=== PATIENT | female | born 1955 | race Caucasian/White ===

== ENCOUNTER → 2017-04-03 16:19 | Outpatient (CLI) | payer OTHER, SELFPAY ==
--- NOTE | 2017-04-03 16:38 | HPBI_ITS ---
MAMMOGRAPHY - BILATERAL SCREENING REASON FOR EXAM: Female, 62 years old. Routine annual screening examination. PERTINENT HISTORY: Non-contributory. TECHNIQUE: Digital bilateral breast vaughn (3D mammographic acquisition) in the CC and MLO projections. 2-D mediolateral oblique (MLO) and craniocaudad (CC) views of both breasts were obtained. CAD: Full Field Digital Mammography with Computer Added Detection was performed. COMPARISON: Comparison is made with prior examination dated December 07, 2010. FINDINGS: Breast Composition: The breasts are heterogeneously dense, which may obscure small masses. There are no dominant masses or suspicious calcifications. No other significant abnormalities are identified. There has been no significant change since the prior study. HPBI/SCREENING MAMM (CAD), BILAT IMPRESSION: Stable bilateral screening mammogram. Yearly follow-up mammogram recommended. (A) ASSESSMENT CATEGORY: BIRADS Category 1: Negative. A letter regarding these results will be sent to the patient by the facility within 30 days. Approximately 10% of breast cancers are not detected by mammography. A normal mammogram should not delay biopsy of a clinically suspicious abnormality. [id number] Electronically Signed: Carson Manley MD at 8:13 EST Tel [phone], Service support ,
== END ==
PROVIDERS: Family Provider Internal Medicine; PCP Internal Medicine; Visit Provider Internal Medicine
DX: Z12.31 Encounter for screening mammogram for malignant neoplasm of breast (principal)
CPT/HCPCS: 77063; 77067

== ENCOUNTER → 2017-04-17 15:01 | Outpatient (CLI) | payer OTHER, SELFPAY ==
[2017-04-23 12:00] LABS: HPV APTIMA, High Risk Negative (Negative)
== END ==
PROVIDERS: Family Provider Internal Medicine; PCP Internal Medicine; Visit Provider Obstetrics & Gynecology
DX: Z12.4 Encounter for screening for malignant neoplasm of cervix (principal)
CPT/HCPCS: 88175; G0145

== ENCOUNTER → 2018-06-26 09:19 | Outpatient (CLI) | payer OTHER, SELFPAY ==
[2018-06-26 09:15] VITALS: BMI 26.4
--- NOTE | 2018-06-26 09:21 | RAD_ITS ---
STUDY: X-RAY - RIGHT KNEE REASON FOR EXAM: Right knee pain. TECHNIQUE: 4 view(s) of the knee. COMPARISON: None. FINDINGS: Normal visualized distal femur. Normal visualized proximal tibia and fibula. Normal proximal tibiofibular articulation. There is moderately severe joint space narrowing of the medial femorotibial compartment. Normal lateral femorotibial compartment. There are small marginal osteophytes and mild joint space narrowing of the patellofemoral articulation. The soft tissue structures are unremarkable. RAD/Knee 4 or More Views IMPRESSION: Arthrosis of the medial femorotibial and patellofemoral compartments. Electronically Signed: Wyatt Stafford MD at 9:44 EDT Tel , Service support ,
== END ==
PROVIDERS: Family Provider Internal Medicine; PCP Internal Medicine; Referring Provider Orthopaedic Surgery; Visit Provider Orthopaedic Surgery
DX: M25.561 Pain in right knee (principal); G89.29 Other chronic pain
CPT/HCPCS: 73564

== ENCOUNTER → 2018-07-17 08:20 | Outpatient (CLI) | payer OTHER, SELFPAY ==
[2018-07-16 13:49] VITALS: BMI 26.4
[2018-07-17 12:29] LABS: Absolute Lymphocyte Count 1.68 X10^3/ul (0.83-4.51); Absolute Neutrophil Count 3.4 X10^3/uL (2.0-7.7); Basophil# 0.01 X10^3/uL; Basophil% 0.2 % (0-1); Eosinophil# 0.15 X10^3/uL; Eosinophils% 2.7 % (0-5); Hematocrit 41.1 % (37-47); Hemoglobin 13.8 g/dl (12.0-15.0); Lymphocyte # 1.68 X10^3/ul (4.0); Lymphocyte % 30.1 % (19-41); Mean Corp Hgb Conc 33.6 g/gl (32-36); Mean Corpuscular Hgb 32.1 pg (27.0-32.0); Mean Corpuscular Volume 95.6 fL (81-99); Monocyte# 0.31 X10^3/uL; Monocyte% 5.6 % (0-10); Neutrophil # 3.42 X10^3/uL (2.7-7.7); Neutrophil % 61.2 % (47-70); Platelet Count 236 K/mm3 (150-450); RBC Distribution Width CV 12.5 % (11.6-14.6); RBC Distribution Width SD 42.3 fl (35.1-43.9); White Blood Count 5.6 K/mm3 (4.4-11.0)
[2018-07-17 12:37] LABS: POSITIVE COUNT NO; POSITIVE DIFFERENTIAL NO; POSITIVE MORPHOLOGY NO
[2018-07-17 12:43] LABS: ALB/GLOB Ratio 0.9 RATIO (0.9-2.4); AST(SGOT) 17 U/L (15-37); Alanine Aminotransfer ALT/SGPT 20 U/L (13-56); Albumin, Serum 3.2 g/dL (3.2-5.0); Alkaline Phosphatase 69 U/L (45-117); Anion Gap 3 (5-15); BUN 9 mg/dL (7-18); BUN/Creat Ratio 12.1 RATIO (10-20); Calcium,Total 8.8 mg/dL (8.5-10.1); Chloride 105 mmol/L (98-107); Cholesterol 261 mg/dL (200); Creatinine, Serum 0.74 mg/dL (0.55-1.02); EST Glomerular Filtration Rate 84 mL/min (>60); Est Glom Filt Rate - Afr Amer 102 mL/min (>60); Globulin 3.6 g/dL (2.2-4.2); Glucose 82 mg/dL (74-106); High Density Lipoprotein 61 mg/dL; Potassium 4.4 mmol/L (3.5-5.1); Protein, Total 6.8 g/dL (6.4-8.2); Sodium Level 139 mmol/L (136-145); Triglycerides 123 mg/dL; Very Low Density Lipoprotein 25 mg/dL (5-40)
== END ==
PROVIDERS: Family Provider Internal Medicine; PCP Internal Medicine; Visit Provider Internal Medicine
DX: E78.5 Hyperlipidemia, unspecified (principal); M17.11 Unilateral primary osteoarthritis, right knee
CPT/HCPCS: 36415; 80053; 80061; 85025

== ENCOUNTER → 2019-02-12 08:00 | Outpatient (CLI) | payer OTHER, SELFPAY ==
[2019-01-30 13:23] VITALS: BMI 26.4
[2019-02-12 12:36] LABS: Cholesterol 243 mg/dL (200); High Density Lipoprotein 68 mg/dL; Triglycerides 123 mg/dL; Very Low Density Lipoprotein 25 mg/dL (5-40)
== END ==
PROVIDERS: Family Provider Internal Medicine; PCP Internal Medicine; Visit Provider Internal Medicine
DX: E78.5 Hyperlipidemia, unspecified (principal)
CPT/HCPCS: 36415; 80061

== ENCOUNTER → 2019-03-03 15:11 | Outpatient (CLI) | payer OTHER, SELFPAY ==
[2019-01-30 13:23] VITALS: BMI 26.4
[2019-02-25 10:39] VITALS: BMI 26.4
--- NOTE | 2019-03-03 15:12 | BI_ITS ---
MAMMOGRAPHY - BILATERAL SCREENING REASON FOR EXAM: Female, 64 years old. Routine annual screening examination. PERTINENT HISTORY: Non-contributory. TECHNIQUE: Digital bilateral breast shaw (3D mammographic acquisition) in the CC and MLO projections. 2-D mediolateral oblique (MLO) and craniocaudad (CC) views of both breasts were obtained. CAD: Full Field Digital Mammography with Computer Added Detection was performed. COMPARISON: Comparison is made with prior examination dated April 03, 2017 and December 07, 2010. FINDINGS: Breast Composition: The breasts are heterogeneously dense, which may obscure small masses. There are no dominant masses or suspicious calcifications. No other significant abnormalities are identified. There has been no significant change since the prior study. BI/SCREEN MAMM (CAD) W/SHAW BILAT IMPRESSION: Stable bilateral screening mammogram. Yearly follow-up mammogram recommended. (A) ASSESSMENT CATEGORY: BIRADS Category 1: Negative. A letter regarding these results will be sent to the patient by the facility within 30 days. Approximately 10% of breast cancers are not detected by mammography. A normal mammogram should not delay biopsy of a clinically suspicious abnormality. [id number] Electronically Signed: Carson Manley, at 15:53 EST , Service support ,
== END ==
PROVIDERS: Family Provider Internal Medicine; PCP Internal Medicine; Referring Provider Obstetrics & Gynecology; Visit Provider Obstetrics & Gynecology
DX: Z12.31 Encounter for screening mammogram for malignant neoplasm of breast (principal)
CPT/HCPCS: 77063; 77067

== ENCOUNTER → 2020-01-27 17:28 | Outpatient (CLI) | payer OTHER, SELFPAY | PROVIDERS: PCP Internal Medicine; Referring Provider Internal Medicine; Visit Provider Internal Medicine | DX: R05 Cough (principal); J02.9 Acute pharyngitis, unspecified | CPT/HCPCS: 87635; C9803; U0003 ==

== ENCOUNTER → 2020-03-03 16:28 | Outpatient (CLI) | payer OTHER, SELFPAY ==
[2020-03-03 11:43] VITALS: BMI 22.3
[2020-03-09 15:31] LABS: HPV APTIMA, High Risk Negative (Negative)
== END ==
PROVIDERS: PCP Internal Medicine; Visit Provider Obstetrics & Gynecology
DX: Z12.4 Encounter for screening for malignant neoplasm of cervix (principal)
CPT/HCPCS: 87624; 88175; G0145

== ENCOUNTER → 2020-08-23 11:37 | Outpatient (CLI) | payer OTHER, SELFPAY ==
[2020-08-23 11:12] VITALS: BMI 26.4
[2020-08-23 15:23] LABS: Absolute Neutrophil Count 5.5 X10^3/uL (2.0-7.7); Basophil# 0.05 X10^3/uL; Basophil% 0.6 % (0-1); Eosinophil# 0.15 X10^3/uL; Eosinophils% 1.9 % (0-5); Hematocrit 41.9 % (37-47); Hemoglobin 13.9 g/dL (12.0-15.0); Lymphocyte % 22.8 % (19-41); Mean Corp Hgb Conc 33.2 g/dL (32-36); Mean Corpuscular Hgb 32.3 pg (27.0-32.0); Mean Corpuscular Volume 97.4 fL (81-99); Mean Platelet Vol. 9.8 fl (6.2-12.0); Monocyte# 0.35 X10^3/uL; Monocyte% 4.4 % (0-10); NRBC Flagged by Analyzer 0 % (0-5); Neutrophil # 5.54 X10^3/uL (2.7-7.7); Platelet Count 272 K/mm3 (150-450); RBC Distribution Width SD 42.9 fl (35.1-43.9); White Blood Count 7.9 K/mm3 (4.4-11.0)
[2020-08-23 15:37] LABS: AST(SGOT) 22 U/L (15-37); Alanine Aminotransfer ALT/SGPT 22 U/L (13-56); Albumin, Serum 3.6 g/dL (3.2-5.0); Alkaline Phosphatase 64 U/L (45-117); Anion Gap 3 (5-15); BUN 14 mg/dL (7-18); BUN/Creat Ratio 16.7 RATIO (10-20); Calcium,Total 9.3 mg/dL (8.5-10.1); Chloride 104 mmol/L (98-107); Cholesterol 296 mg/dL (200); Creatinine, Serum 0.84 mg/dL (0.55-1.02); EST Glomerular Filtration Rate 73 mL/min (>60); Est Glom Filt Rate - Afr Amer 88 mL/min (>60); Globulin 3.7 g/dL (2.2-4.2); Glucose 83 mg/dL (74-106); High Density Lipoprotein 79 mg/dL; Potassium 4.1 mmol/L (3.5-5.1); Protein, Total 7.3 g/dL (6.4-8.2); Sodium Level 136 mmol/L (136-145); Triglycerides 105 mg/dL; Very Low Density Lipoprotein 21 mg/dL (5-40)
== END ==
PROVIDERS: PCP Internal Medicine; Referring Provider Internal Medicine; Visit Provider Internal Medicine
DX: E78.5 Hyperlipidemia, unspecified (principal)
CPT/HCPCS: 36415; 80053; 80061; 85025

== ENCOUNTER → 2020-09-22 09:43 | Outpatient (CLI) | payer OTHER, SELFPAY ==
[2020-09-15 09:46] VITALS: BMI 26.4
--- NOTE | 2020-09-22 09:45 | US_ITS ---
STUDY: SUPERFICIAL ULTRASOUND - LEFT GROIN. REASON FOR EXAM: Female, 65 years old. Mass left groin TECHNIQUE: A superficial ultrasound was performed with real-time and static valdes-scale imaging. COMPARISON: None. FINDINGS: Multiple views of the left groin were obtained. The palpable normality corresponds to dilatation of the left greater saphenous vein suggestive of possible fistula communication. US/Ext Non Vasc Limited/Soft Tiss IMPRESSION: Findings suggestive of a dilatation of the greater saphenous vein at the level of the left groin with possible fistula communication. Electronically Signed: Carson Manley MD at 12:19 EDT , Service support ,
== END ==
PROVIDERS: PCP Internal Medicine; Referring Provider Nurse Practitioner Family; Visit Provider Nurse Practitioner Family
DX: R19.04 Left lower quadrant abdominal swelling, mass and lump (principal)
CPT/HCPCS: 76882

== ENCOUNTER → 2020-11-22 11:14 | Outpatient (CLI) | payer OTHER, SELFPAY ==
[2020-11-22 13:09] LABS: ALB/GLOB Ratio 0.9 RATIO (0.9-2.4); AST(SGOT) 19 U/L (15-37); Alanine Aminotransfer ALT/SGPT 23 U/L (13-56); Albumin, Serum 3.5 g/dL (3.2-5.0); Alkaline Phosphatase 58 U/L (45-117); Anion Gap 5 (5-15); BUN 14 mg/dL (7-18); BUN/Creat Ratio 18.5 RATIO (10-20); Calcium,Total 9.4 mg/dL (8.5-10.1); Chloride 107 mmol/L (98-107); Cholesterol 172 mg/dL (200); Creatinine, Serum 0.76 mg/dL (0.55-1.02); EST Glomerular Filtration Rate 82 mL/min (>60); Est Glom Filt Rate - Afr Amer 99 mL/min (>60); Globulin 3.7 g/dL (2.2-4.2); Glucose 100 mg/dL (74-106); High Density Lipoprotein 80 mg/dL; Potassium 4.5 mmol/L (3.5-5.1); Protein, Total 7.2 g/dL (6.4-8.2); Sodium Level 142 mmol/L (136-145); Triglycerides 88 mg/dL; Very Low Density Lipoprotein 18 mg/dL (5-40)
== END ==
PROVIDERS: PCP Internal Medicine; Referring Provider Internal Medicine; Visit Provider Internal Medicine
DX: E78.5 Hyperlipidemia, unspecified (principal)
CPT/HCPCS: 36415; 80053; 80061

== ENCOUNTER → 2021-02-02 13:15 | Outpatient (CLI) | payer MEDICARE, BC, SELFPAY ==
--- NOTE | 2021-02-02 13:18 | BI_ITS ---
MAMMOGRAPHY - BILATERAL SCREENING REASON FOR EXAM: Female, 66 years old. Routine annual screening examination. PERTINENT HISTORY: Non-contributory. TECHNIQUE: Digital bilateral breast shaw (3D mammographic acquisition) in the CC and MLO projections. 2-D mediolateral oblique (MLO) and craniocaudad (CC) views of both breasts were obtained. CAD: Full Field Digital Mammography with Computer Added Detection was performed. COMPARISON: Comparison is made with prior study dated 09/01/2019 and 04/03/2017. FINDINGS: Breast Composition: The breasts are heterogeneously dense, which may obscure small masses. There are no dominant masses or suspicious calcifications. No other significant abnormalities are identified. There has been no significant change since the prior study. BI/SCRN MAMM (CAD)W/SHAW BILAT IMPRESSION: Stable bilateral screening mammogram. Yearly follow-up mammogram recommended. (A) ASSESSMENT CATEGORY: BIRADS Category 1: Negative. A letter regarding these results will be sent to the patient by the facility within 30 days. Approximately 10% of breast cancers are not detected by mammography. A normal mammogram should not delay biopsy of a clinically suspicious abnormality. [id number] Electronically Signed: Carson Manley MD at 14:06 EST , Service support ,
--- NOTE | 2021-02-02 13:34 | BD_ITS ---
STUDY: DUAL ENERGY X-RAY ABSORPTIOMETRY / DXA REASON FOR EXAM: Female, 66 years old. Post menopausal TECHNIQUE: Bone Mineral Density (BMD) measurements of lumbar spine and bilateral hips were obtained. COMPARISON: None. FINDINGS: Lumbar Spine (L1-L4): g/cm2 (1.015) / T-score (-0.3) / Z-score (1.5) Findings are suggestive of normal bone density with a low fracture risk. Left Femur Total: g/cm2 (0.747) / T-score (-1.6) / Z-score (-0.4) Left Femoral Neck: g/cm2 (0.560) / T-score (-2.6) / Z-score (-1.1) Right Femur Total: g/cm2 (0.756) / T-score (-1.5) / Z-score (-0.3) Right Femoral Neck: g/cm2 (0.540) / T-score (-2.8) / Z-score (-1.3) BD/Dexa Bone Density Study IMPRESSION: The patient is considered osteoporotic as outlined below according to World Travis Organization (WHO) criteria with a high fracture risk. Reference Information: The T-score is the number of standard deviations above or below the standard which is normal for young adults at their peak bone mineral density. The World Health Organization (WHO) interprets the T-scores as follows: Above -1 Normal bone density Between -1 and -2.5 Osteopenia Equal to / or below -2.5 Osteoporosis As a practical clinical guideline, osteopenia may be graded as follows: Mild -1 through -1.5 Moderate -1.6 through -2.0 Severe -2.1 through -2.4 The Z-score is the number of standard deviations above or below age-matched controls. A Z-score of less than -1.5 would be considered abnormal. References: 1. NIH Osteoporosis and Related Bone Diseases www osteo.org 2. International Society for Clinical Densitometry www iscd.org 3. National Osteoporosis Foundation www nof.org Electronically Signed: Carson Manley MD at 14:23 EST , Service support ,
== END ==
PROVIDERS: PCP Internal Medicine; Visit Provider Internal Medicine
DX: Z78.0 Asymptomatic menopausal state (principal); Z12.31 Encounter for screening mammogram for malignant neoplasm of breast
CPT/HCPCS: 77063; 77067; 77080

== ENCOUNTER 2021-02-23 13:27 | Outpatient (CLI) | payer MEDICARE, BC, SELFPAY ==
[2021-02-23 15:28] LABS: Erythrocyte Sedimentation Rate 6 mm/hr (0-30)
[2021-02-23 15:29] LABS: Absolute Lymphocyte Count 2.15 X10^3/uL (0.83-4.51); Absolute Neutrophil Count 5.5 X10^3/uL (2.0-7.7); Basophil# 0.03 X10^3/uL; Basophil% 0.4 % (0-1); Eosinophil# 0.11 X10^3/uL; Eosinophils% 1.3 % (0-5); Hematocrit 39.5 % (37-47); Hemoglobin 13.6 g/dL (12.0-15.0); Lymphocyte # 2.15 X10^3/ul (0.83-4.51); Mean Corp Hgb Conc 34.4 g/dL (32-36); Mean Corpuscular Hgb 32.6 pg (27.0-32.0); Mean Corpuscular Volume 94.7 fL (81-99); Mean Platelet Vol. 9.7 fl (6.2-12.0); Monocyte# 0.42 X10^3/uL; Monocyte% 5.1 % (0-10); NRBC Flagged by Analyzer 0 % (0-5); Neutrophil # 5.54 X10^3/uL (2.7-7.7); Neutrophil % 66.8 % (47-70); Platelet Count 255 K/mm3 (150-450); RBC Distribution Width CV 11.7 % (11.6-14.6); RBC Distribution Width SD 40.5 fl (35.1-43.9); Red Blood Count 4.17 M/mm3 (4.2-5.4); White Blood Count 8.3 K/mm3 (4.4-11.0)
[2021-02-23 15:45] LABS: ALB/GLOB Ratio 1.1 RATIO (0.9-2.4); AST(SGOT) 17 U/L (15-37); Alanine Aminotransfer ALT/SGPT 28 U/L (13-56); Albumin, Serum 3.7 g/dL (3.2-5.0); Alkaline Phosphatase 61 U/L (45-117); Anion Gap 9 (5-15); BUN 12 mg/dL (7-18); BUN/Creat Ratio 15.1 RATIO (10-20); Calcium,Total 9.3 mg/dL (8.5-10.1); Chloride 104 mmol/L (98-107); Creatinine, Serum 0.79 mg/dL (0.55-1.02); EST Glomerular Filtration Rate 77 mL/min (>60); Est Glom Filt Rate - Afr Amer 93 mL/min (>60); Globulin 3.3 g/dL (2.2-4.2); Glucose 158 mg/dL (74-106); Sodium Level 140 mmol/L (136-145); T4 Free Direct 1.17 ng/dL (0.76-1.46); Thyroid Stim Hormone (TSH) 1.14 uIU/mL (0.358-3.74)
== END 2021-02-23 23:59 | disposition short-term general hospital (02) ==
LOC: BIMLAB 13:30
PROVIDERS: PCP Internal Medicine; Referring Provider Internal Medicine; Visit Provider Internal Medicine
DX: R63.4 Abnormal weight loss (principal)
CPT/HCPCS: 36415; 80053; 84439; 84443; 85025; 85652

== ENCOUNTER → 2021-06-08 | Outpatient (CLI) | payer MEDICARE, BC, SELFPAY ==
--- NOTE | 2021-06-08 10:19 | NM_ITS ---
CLINICAL: 66 year old female with abdominal pain GASTRIC EMPTYING-SULFUR COLLOID TECHNIQUE: The patient was orally administered 1.1 mCi of Tc-sulfur colloid in oatmeal. Gamma camera imaging acquisitions at 1-60 minutes post radiopharmaceutical administration was performed. COMPARISON STUDIES : NM - None. CR - Not available for review at this time. CT - Not available for review at this time. MR - Not available for review at this time. FINDINGS: There is normal filling and emptying of the stomach. No gastroesophageal reflux with normal passage into the small bowel. T 1/2 measures 57 minutes, within normal limits. NM/Gastric Emptying Study IMPRESSION: Normal gastric emptying nuclear medicine scan. Electronically Signed: Anjel Brown MD (Brooks) at 7:59 EDT Reading Location ID and State: 15 [place] , Service support ,
== END | disposition home or self-care (01) ==
LOC: NM 10:19
PROVIDERS: PCP Internal Medicine; Referring Provider Internal Medicine Gastroenterology; Visit Provider Internal Medicine Gastroenterology
DX: R10.9 Unspecified abdominal pain (principal)
CPT/HCPCS: 78264; A9541

== ENCOUNTER → 2021-06-13 | Outpatient (CLI) | payer MEDICARE, BC, SELFPAY ==
--- NOTE | 2021-06-13 13:16 | CT_ITS ---
STUDY: CT ABDOMEN AND PELVIS WITH CONTRAST REASON FOR EXAM: Female, 66 years old. Weight loss. Mid abdominal pain. RADIATION DOSAGE (If Supplied By Facility): CTDIvol = ( 8.4 ) mGy, DLP = ( 314.01 ) mGycm TECHNIQUE: Transaxial images were obtained from the dome of the diaphragm to the symphysis pubis with oral contrast. Oral and amp; IV Readi-CAT and amp; 100mL Isovue-300 was administered. Sagittal and coronal images were reconstructed. Individualized dose optimization techniques were used for this CT. COMPARISON: None. FINDINGS: The visualized lung bases are unremarkable. The visualized portions of the heart are within normal limits. Normal liver. Normal gallbladder and extrahepatic biliary system. Normal spleen. Normal pancreas. Normal bilateral adrenal glands. Normal right kidney. Small left parapelvic cyst. Normal visualized stomach. Normal small intestine. There are scattered colonic diverticula consistent with diverticulosis. Moderate amount of fecal material is seen in the colon. The appendix is visualized and appears normal. There is scattered atherosclerotic calcification of the abdominal aorta, without a demonstrated aneurysm. Normal inferior vena cava. Normal retroperitoneum. Normal urinary bladder. Normal abdominal wall. Normal osseous structures. CT/Abdomen/Pelvis WITH Contrast IMPRESSION: Scattered sigmoid diverticula. Electronically Signed: Carson Manley MD at 14:28 EDT ,
[2021-06-13 13:36] LABS: CREATININE FINGERSTICK 0.8 mg/dL (0.55-1.02); EGFR FINGERSTICK > 60.0000 mL/min (>60)
== END | disposition home or self-care (01) ==
LOC: CT 13:14
PROVIDERS: PCP Internal Medicine; Referring Provider Internal Medicine Gastroenterology; Visit Provider Internal Medicine Gastroenterology
DX: R10.9 Unspecified abdominal pain (principal)
CPT/HCPCS: 74177; Q9967; A4216

== ENCOUNTER → 2021-07-31 | Outpatient (CLI) | payer MEDICARE, BC, SELFPAY ==
[2021-07-31 17:04] LABS: Absolute Neutrophil Count 4.9 X10^3/uL (2.0-7.7); Basophil# 0.04 X10^3/uL; Basophil% 0.6 % (0-1); Eosinophil# 0.08 X10^3/uL; Eosinophils% 1.2 % (0-5); Hematocrit 39.1 % (37-47); Hemoglobin 13.1 g/dL (12.0-15.0); Lymphocyte % 21.6 % (19-41); Mean Corp Hgb Conc 33.5 g/dL (32-36); Mean Corpuscular Hgb 33.2 pg (27.0-32.0); Mean Corpuscular Volume 99.2 fL (81-99); Monocyte# 0.38 X10^3/uL; Monocyte% 5.5 % (0-10); NRBC Flagged by Analyzer 0 % (0-5); Neutrophil # 4.93 X10^3/uL (2.7-7.7); Neutrophil % 70.8 % (47-70); Platelet Count 233 K/mm3 (150-450); RBC Distribution Width SD 44.1 fl (35.1-43.9); Red Blood Count 3.94 M/mm3 (4.2-5.4)
[2021-07-31 17:40] LABS: Vitamin B12 677 pg/mL (211-911); Vitamin D,25 Hydroxy 48.7 ng/mL
== END | disposition home or self-care (01) ==
LOC: BIMLAB 16:01
PROVIDERS: PCP Internal Medicine; Referring Provider Internal Medicine; Visit Provider Internal Medicine
DX: R63.4 Abnormal weight loss (principal); M81.0 Age-related osteoporosis without current pathological fracture
CPT/HCPCS: 36415; 82306; 82607; 82784; 83516; 85025; 86255

== ENCOUNTER 2021-08-17 09:04 | Day surgery (SDC) | payer MEDICARE, BC, SELFPAY ==
[2021-08-17] MEDS: Lactated Ringers 1,000 ML 15 ML IV (09:38)
[2021-08-17 09:40] VITALS: BP 153/64; PULSE 88; RESP 16; TEMP 37.2; O2SAT 100; BMI 19.8
--- NOTE | 2021-08-17 09:48 | PCM.HP.BLA ---
History and Physical Date of Admission: 08/17/21 ALMA ABARCA, is a 66 F who presents to the office today for a new patient consult referred by Dr. Palmer. Patient complains of abdominal pain with a onset of two months ago. Patient states that the pain is in the central of the abdomen and is intermittent. Patient has loss of appetite and constipation. Patient takes Metamucil twice daily but this has failed. Patient states I have to use my finger to remove stool occasionally. Uses hydrocortisone suppository as needed for hemorrhoids. Last colonoscopy was [address] Benz.? She says that she had a colonoscopy 4 years ago and it showed some abnormalities in her colon possibly secondary to colitis.? She is concerned that she has been losing weight.? She is also approximately 11 pounds.? At her highest she was about 130 and she is about 107 currently.? She says that she has to make herself eat.? She denies any depression.? She denies any chest pain or shortness of breath.? She does suffer from osteoporosis but she is on treatment.? She also is on pantoprazole 40 mg twice a day.? She does not know if she has been on it for a long time and if it is helping her.? She suffers from chronic idiopathic constipation and has a bowel movement every other day.? She has to manually disimpact every other day and then after she has a bowel movement she ends up having liquid stools. ROS Gastro GI: Positive for constipation Exam Const General: cooperative and comfortable Nutritional Appearance: average body habitus and well nourished [facility] Head: normal to inspection Ears: hearing grossly normal bilaterally Nose: external nose normal Face and sinus: normal facial exam Mouth: oral mucosae normal Throat: posterior oropharynx normal Eyes General: appearance normal, both eyes and all related structures Neck Neck: normal visual inspection Chest Chest palpation & inspection: normal inspection of the chest and normal palpation of entire chest wall Resp Effort & Inspection: normal respiratory effort Auscultation: Bilateral: Clear to Auscultation Cardio Palpation: normal PMI Rate: regular rate Rhythm: regular rhythm GI Inspection: normal to inspection Auscultation: normal bowel sounds Percussion: normal to percussion Palpation: no hepatosplenomegaly Skin General: no rashes or lesions noted Neuro General: patient alert Extrem General: normal to inspection Psych Affect: normal affect Quality Reporting Tobacco Screening ([facility] 138) Smoking Status: Never smoker Assessment and Plan Assessment and Plan (1) Abdominal discomfort: ?Status:?Acute ?Plan - Dr. Caban Friend, DO: The differential diagnosis for her abdominal discomfort does include pancreatic insufficiency, celiac disease, peptic ulcer disease, hiatal hernia, gastroparesis.? She should undergo an upper endoscopy evaluate upper GI tract. (2) Weight loss, non-intentional: ?Status:?Acute ?Plan - Dr. Caban Friend, DO: Weight loss possibly secondary to chronic mesenteric ischemia.? She may need a upper GI with small bowel follow-through versus a CT scan abdomen pelvis. (3) GERD (gastroesophageal reflux disease): ?Status:?Acute ?Plan - Dr. Caban Friend, DO: She is not having any problems with gastroesophageal reflux disease.? After she undergoes an upper endoscopy we may be able to she really needs to be on the medicine. I have re-examined the patient. There are no clinical changes since date of exam.
--- NOTE | 2021-08-17 10:15 | EGD_PTH ---
PATIENT: ALMA ABARCA LOC: [facility] U#:[id number] AGE/SX: 66/F ROOM: RE08/17/[address]: Dr. Arsh Hurley DO : 1955 BED: DIS: 08/17/2021 SPEC #: [id number] RECD: 08/17/21 14:57 STATUS: BETY RETunde #: [id number] NATASHA: 08/17/21 10:[address]: Arsh Hurley DEPT: SURGICAL PATHOLOGY RECD BY: Lia Hamilton ENTERED: 08/18/21 08:41 SP TYPE: EGD [facility]: Dr. Khurram Palmer MD Tissues: A - Gastric mucous membrane B - Pylorus C - Esophagus, NOS D - Ileum, NOS Procedures: Special Stain Group II Surgery Specimen Level IV Alcian Blue/PAS (control) HEADER OPERATION: [place], [place] PRE-OP DIAGNOSIS: Abdominal discomfort, nonintentional weight loss, GERD TISSUE SUBMITTED: A ? Gastric polyp biopsy, B ? Pre-pylorus polyp biopsy, C ? Distal esophagus biopsy, D ? Terminal ileum biopsy MICROSCOPIC DIAGNOSIS A. Gastric polyp, biopsy: Fragments of gastric mucosa with chronic inflammation. See comment. B. Pre-pyloric polyp, biopsy: Fragments of gastric mucosa with focal hyperplastic change. Chronic inflammation. C. Distal esophagus, biopsy: Gastroesophageal junctional mucosa with chronic inflammation. 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 Focal changes of reflux. No evidence of dysplasia. See comment. D. Terminal ileum, biopsy: No pathologic change. See comment. AM:royce 08/21/2021 COMMENT A. The results of immunohistochemistry for Helicobacter pylori will be reported separately ([id number]). C. Immunohistochemistry ([id number]) for P53 and Ki-67 will be performed and results will be reported separately. Alcian blue/PAS stain with matched control supports the above diagnosis. D. Prominent appearing benign lymphoid aggregates are present. MICROSCOPIC DESCRIPTION Slides are reviewed. GROSS DESCRIPTION A - Received in fixative is one container labeled with the patient's name and designated gastric polyp biopsy. The specimen consists of multiple irregular fragments of light canales soft tissue that in aggregate measure 0.5 x 0.4 x 0.1 cm. The specimen is totally submitted in one cassette. B - Received in fixative is one container labeled with the patient's name and designated pre-pylorus polyp biopsy. The specimen consists of two irregular fragments of light canales soft tissue that in aggregate measure 0.6 x 0.3 x 0.1 cm. The specimen is totally submitted in one cassette. C - Received in fixative is one container labeled with the patient's name and designated distal esophagus biopsy. The specimen consists of two irregular fragments of light canales soft tissue that in aggregate measure 0.6 x 0.3 x 0.1 cm. The specimen is totally submitted in one cassette. D - Received in fixative is one container labeled with the patient's name and designated terminal ileum biopsy. The specimen consists of multiple irregular fragments of light canales soft tissue that in aggregate measure 1.2 x 0.3 x 0.1 cm. The specimen is totally submitted in one cassette. / SJ:rg 08/18/2021 TC:3 CPT: 92615 x4, 30584
--- NOTE | 2021-08-17 10:15 | IMM_PTH ---
PATIENT: ALMA ABARCA LOC: [facility] U#:[id number] AGE/SX: 66/F ROOM: RE08/17/[address]: Dr. Arsh Hurley DO : 1955 BED: DIS: 08/17/2021 SPEC #: [id number] RECD: 08/18/21 13:06 STATUS: BETY REQ #: [id number] NATASHA: 08/17/21 10:[address]: Arsh Hurley DEPT: IMMUNOHISTOCHEMISTRY RECD BY: Soheila Weaver ENTERED: 08/18/21 13:06 SP TYPE: IMMUNO OTHR DR: Dr. Khurram Palmer MD Tissues: A - Stomach, NOS C - Esophagus, NOS Procedures: H Pylori (initial) P53 (initial) KI-67 (add) PHYSICIAN & INSTITUTION [place] [id number] SPECIMEN INFORMATION: Tissue Source: A ? Gastric polyp biopsy, C ? Distal esophagus biopsy Clinical Info: Abdominal discomfort, nonintentional weight loss, GERD Specimen Number: [id number] A & C CPT code: 26550 x2, 01209 METHODOLOGY: Deparaffinized sections of prefer/formalin-fixed tissue or PAP/DQ stained slides are incubated with monoclonal/polyclonal antibodies/oligonucleotide probes. Localization is made via biotin free immunoperoxidase method. Appropriate controls are performed and reacted as expected. Results on target cell population are indicated in the following table: RESULTS: ANTIBODY / CLONE RESULT Block A H Pylori (polyclonal) negative Block C P53 (DO-7) negative Ki-67 (30-9) positive, low These tests were developed and their performance characteristics determined by [facility]. They may not have been cleared or approved by the U.S. Food and Drug Administration. The FDA has determined that such clearance or approval is not necessary. The above immunohistochemical/dualISH markers are ordered and reviewed by the Pathologist. INTERPRETATION: A. Gastric polyp, biopsy: Negative for Helicobacter pylori organisms. C. Distal esophagus, biopsy: No evidence of dysplasia. AM:royce 08/22/2021
[2021-08-17 10:43] VITALS: BP 134/82; BP 153/64; PULSE 78; RESP 16; TEMP 36.4; O2SAT 99
[2021-08-17 10:50] VITALS: BP 153/64; BP 166/81; PULSE 74; RESP 16; O2SAT 98
--- NOTE | 2021-08-17 10:51 | OP.EGD_ITS ---
Patient Name: Ilsa Lal Procedure Date: 08/17/2021 9:40 AM Date of : 1955 Age: 66 Procedure: Upper GI endoscopy Indications: Iron deficiency anemia, Failure to respond to medical treatment, Anorexia, Weight loss Providers: Arsh Hurley DO Referring MD: Khurram Palmer MD Medicines: Monitored Anesthesia Care Patient Profile: This is a 66 year old female. Refer to note in patient chart for documentation of history and physical. Complications: No immediate complications. Procedure: Pre-Anesthesia Assessment: - Prior to the procedure, a History and Physical was performed, and patient medications and allergies were reviewed. The patient is competent. The risks and benefits of the procedure and the sedation options and risks were discussed with the patient. All questions were answered and informed consent was obtained. Patient identification and proposed procedure were verified by the physician in the pre-procedure area. Mental Status Examination: alert and oriented. Airway Examination: normal oropharyngeal airway and neck mobility. Respiratory Examination: clear to auscultation. CV Examination: normal. Prophylactic Antibiotics: The patient does not require prophylactic antibiotics. Prior Anticoagulants: The patient has taken no previous anticoagulant or antiplatelet agents. ASA Grade Assessment: II - A patient with mild systemic disease. After reviewing the risks and benefits, the patient was deemed in satisfactory condition to undergo the procedure. The anesthesia plan was to use moderate sedation / analgesia (conscious sedation). Immediately prior to administration of medications, the patient was re-assessed for adequacy to receive sedatives. The heart rate, respiratory rate, oxygen saturations, blood pressure, adequacy of pulmonary ventilation, and response to care were monitored throughout the procedure. The physical status of the patient was re-assessed after the procedure. After obtaining informed consent, the endoscope was passed under direct vision. Throughout the procedure, the patient's blood pressure, pulse, and oxygen saturations were monitored continuously. The colonoscope was introduced through the mouth, and advanced to the second part of duodenum. The upper GI endoscopy was accomplished without difficulty. The patient tolerated the procedure well. Scope In: 10:03:25 AM Scope Out: 10:12:03 AM Total Procedure Duration Time 0 hours 8 minutes 38 seconds Findings: The Z-line was irregular and was found 36 cm from the incisors. Biopsies were taken with a cold forceps for histology. Verification of patient identification for the specimen was done. Estimated blood loss was minimal. A small hiatal hernia was present. Localized moderate inflammation characterized by congestion (edema), erosions and friability was found in the gastric antrum, in the prepyloric region of the stomach and at the pylorus. Biopsies were taken with a cold forceps for histology. Verification of patient identification for the specimen was done. Estimated blood loss was minimal. There was a bulge seen in the proximal fundic region of the stomach that cannot be explained. The second portion of the duodenum was normal. Biopsies were taken with a cold forceps for histology. Verification of patient identification for the specimen was done. Estimated blood loss was minimal. Impression: - Z-line irregular, 36 cm from the incisors. Biopsied. - Small hiatal hernia. - Gastritis. Biopsied. - Normal second portion of the duodenum. Biopsied. Recommendation: - Discharge patient to home. - Resume previous diet. - Continue present medications. - Await pathology results. - Repeat upper endoscopy in 1 year for surveillance based on pathology results. -CT scan of the chest and EUS regarding proximal gastric lesion Procedure Code(s): --- Professional --- 66610, Esophagogastroduodenoscopy, flexible, transoral; with biopsy, single or multiple CPT copyright 2017 [employer]. All rights reserved. The codes documented in this report are preliminary and upon escrow assistant review may be revised to meet current compliance requirements. Arsh Hurley DO 08/17/2021 10:50:51 AM This report has been signed electronically. Number of Addenda: 1 Note Initiated On: 08/17/2021 9:40 AM Addendum Number: 1 Addendum Date: 11/15/2021 6:27:25 AM MAC was used as sedation for this procedure. Arsh Hurley DO 11/15/2021 6:27:28 AM This report has been signed electronically.
--- NOTE | 2021-08-17 10:52 | OP.CCLET_ITS ---
11/15/2021 Khurram Palmer MD [address] [place] [address] [place] [address] Re : Upper GI endoscopy procedure for Ilsa Lal Dear Dr. Palmer This procedure was performed on August. My impressions and recommendations are as follows: Impressions : - Z-line irregular, 36 cm from the incisors. Biopsied. - Small hiatal hernia. - Gastritis. Biopsied. - Normal second portion of the duodenum. Biopsied. Recommendations : - Discharge patient to home. - Resume previous diet. - Continue present medications. - Await pathology results. - Repeat upper endoscopy in 1 year for surveillance based on pathology results. -CT scan of the chest and EUS regarding proximal gastric lesion My findings are described in the full procedure note, which is enclosed. If I can be of further assistance, please feel free to contact me at . Sincerely, Arsh Hurley, 08/17/2021 10:50:51 AM This report has been signed electronically.
[2021-08-17 10:55] VITALS: BP 153/64; BP 156/83; PULSE 70; RESP 16; O2SAT 100
[2021-08-17 10:58] VITALS: BP 153/64; BP 156/72; PULSE 68; RESP 16; TEMP 36.3; O2SAT 99
--- NOTE | 2021-08-17 10:58 | OP.COLON_ITS ---
Patient Name: Ilsa Lal Procedure Date: 08/17/2021 10:12 AM Date of : 1955 Age: 66 Procedure: Colonoscopy Indications: Lower abdominal pain, Change in bowel habits, Change in stool caliber, Weight loss Providers: Arsh Hurley DO Referring MD: Khurram Palmer MD Medicines: Monitored Anesthesia Care Patient Profile: This is a 66 year old female. Refer to note in patient chart for documentation of history and physical. Last Colonoscopy: date unknown. Unable to locate last colonoscopy report. Complications: No immediate complications. Procedure: Pre-Anesthesia Assessment: - Prior to the procedure, a History and Physical was performed, and patient medications and allergies were reviewed. The patient is competent. The risks and benefits of the procedure and the sedation options and risks were discussed with the patient. All questions were answered and informed consent was obtained. Patient identification and proposed procedure were verified by the physician in the pre-procedure area. Mental Status Examination: alert and oriented. Airway Examination: normal oropharyngeal airway and neck mobility. Respiratory Examination: clear to auscultation. CV Examination: normal. Prophylactic Antibiotics: The patient does not require prophylactic antibiotics. Prior Anticoagulants: The patient has taken no previous anticoagulant or antiplatelet agents. ASA Grade Assessment: II - A patient with mild systemic disease. After reviewing the risks and benefits, the patient was deemed in satisfactory condition to undergo the procedure. The anesthesia plan was to use moderate sedation / analgesia (conscious sedation). Immediately prior to administration of medications, the patient was re-assessed for adequacy to receive sedatives. The heart rate, respiratory rate, oxygen saturations, blood pressure, adequacy of pulmonary ventilation, and response to care were monitored throughout the procedure. The physical status of the patient was re-assessed after the procedure. After I obtained informed consent, the scope was passed under direct vision. Throughout the procedure, the patient's blood pressure, pulse, and oxygen saturations were monitored continuously. The colonoscope was introduced through the anus and advanced to the terminal ileum. The colonoscopy was performed without difficulty. The patient tolerated the procedure well. The quality of the bowel preparation was good. Moderate Sedation: Moderate (conscious) sedation was administered by the endoscopy nurse and supervised by the endoscopist. Scope In: 10:15:58 AM Scope Withdrawal Time 0 hours 11 minutes 46 seconds Scope Out: 10:35:27 AM Total Procedure Duration Time 0 hours 19 minutes 29 seconds Findings: The perianal and digital rectal examinations were normal. A few small-mouthed diverticula were found in the sigmoid colon. The terminal ileum appeared normal. Biopsies were taken with a cold forceps for histology. Verification of patient identification for the specimen was done. Estimated blood loss was minimal. Impression: - Diverticulosis in the sigmoid colon. - The examined portion of the ileum was normal. Biopsied. Recommendation: - Discharge patient to home. - Resume previous diet. - Continue present medications. - Await pathology results. - Repeat colonoscopy in 5 years for surveillance. Procedure Code(s): --- Professional --- 91957, Colonoscopy, flexible; with biopsy, single or multiple CPT copyright 2017 [employer]. All rights reserved. The codes documented in this report are preliminary and upon chemical analyst review may be revised to meet current compliance requirements. Arsh Hurley DO 08/17/2021 10:57:54 AM This report has been signed electronically. Number of Addenda: 1 Note Initiated On: 08/17/2021 10:12 AM Addendum Number: 1 Addendum Date: 11/15/2021 6:27:36 AM MAC was used as sedation for this procedure. Arsh Hurley DO 11/15/2021 6:27:40 AM This report has been signed electronically.
--- NOTE | 2021-08-17 10:59 | OP.CCLET_ITS ---
11/15/2021 Khurram Palmer MD [address] [place] [address] [place] [address] Re : Colonoscopy procedure for Ilsa Lal Dear Dr. Palmer This procedure was performed on August. My impressions and recommendations are as follows: Impressions : - Diverticulosis in the sigmoid colon. - The examined portion of the ileum was normal. Biopsied. Recommendations : - Discharge patient to home. - Resume previous diet. - Continue present medications. - Await pathology results. - Repeat colonoscopy in 5 years for surveillance. My findings are described in the full procedure note, which is enclosed. If I can be of further assistance, please feel free to contact me at . Sincerely, Arsh Hurley, 08/17/2021 10:57:54 AM This report has been signed electronically.
[2021-08-17 11:32] VITALS: BP 153/64
== END 2021-08-17 11:47 | disposition home or self-care (01) ==
LOC: EN 09:06 → AC 09:07
PROVIDERS: PCP Internal Medicine; Referring Provider Internal Medicine; Visit Provider Internal Medicine Gastroenterology
PROC: 0DJD8ZZ Inspection of Lower Intestinal Tract, Via Natural or Artificial Opening Endoscopic (ICD-10-PCS; CPT 45378; principal; 2021-08-17 10:10)
DX: K22.70 Barrett's esophagus without dysplasia (principal); K44.9 Diaphragmatic hernia without obstruction or gangrene; K21.00 Gastro-esophageal reflux disease with esophagitis, without bleeding; K31.7 Polyp of stomach and duodenum; K57.30 Diverticulosis of large intestine without perforation or abscess without bleeding; R63.4 Abnormal weight loss; E78.00 Pure hypercholesterolemia, unspecified; M19.90 Unspecified osteoarthritis, unspecified site; Z79.899 Other long term (current) drug therapy
CPT/HCPCS: 45380; 43239; 88305; 88313; 88341; 88342; J7120; J2405

== ENCOUNTER → 2021-08-31 | Outpatient (CLI) | payer MEDICARE, BC, SELFPAY ==
--- NOTE | 2021-08-31 07:38 | CT_ITS ---
STUDY: CT CHEST WITH CONTRAST REASON FOR EXAM: Female, 66 years old. Gastric lesion RADIATION DOSAGE (If Supplied By Facility): CTDIvol = ( 5.41 ) mGy, DLP = ( 154.74 ) mGycm TECHNIQUE: Transaxial imaging was performed following intravenous administration of IV 100mL Isovue-300. Multiplanar coronal and sagittal images were reformatted. Individualized dose optimization techniques were used for this CT. COMPARISON: No relevant priors. FINDINGS: CHEST The lungs are normal. There is no demonstrated pleural abnormality. Normal heart and pericardium. Normal mediastinum. Normal hilar regions. Normal unenhanced pulmonary arteries. There is a mild degree of atherosclerotic calcification of the aortic arch. There are degenerative changes of the thoracic spine. Increased kyphosis. There is deformity of the sternum. There is no demonstrated abnormality of the visualized upper abdomen. CT/Chest WITH Contrast IMPRESSION: Normal enhanced CT chest T abdomen examination. Electronically Signed: Carson Manley MD at 10:08 EDT ,
== END | disposition home or self-care (01) ==
LOC: CT 07:36
PROVIDERS: PCP Internal Medicine; Referring Provider Internal Medicine Gastroenterology; Visit Provider Internal Medicine Gastroenterology
DX: K31.9 Disease of stomach and duodenum, unspecified (principal)
CPT/HCPCS: 71260; Q9967

== ENCOUNTER → 2021-11-15 | Outpatient (CLI) | payer MEDICARE, BC, SELFPAY ==
[2021-11-15 11:24] LABS: Absolute Lymphocyte Count 1.78 X10^3/uL (0.83-4.51); Absolute Neutrophil Count 6.1 X10^3/uL (2.0-7.7); Basophil# 0.06 X10^3/uL; Basophil% 0.7 % (0-1); Eosinophil# 0.11 X10^3/uL; Eosinophils% 1.3 % (0-5); Hematocrit 47.2 % (37-47); Hemoglobin 15.7 g/dL (12.0-15.0); Lymphocyte # 1.78 X10^3/ul (0.83-4.51); Mean Corp Hgb Conc 33.3 g/dL (32-36); Mean Corpuscular Volume 99.2 fL (81-99); Mean Platelet Vol. 9.4 fl (6.2-12.0); Monocyte% 4.7 % (0-10); NRBC Flagged by Analyzer 0 % (0-5); Neutrophil # 6.09 X10^3/uL (2.7-7.7); Neutrophil % 71.8 % (47-70); Platelet Count 298 K/mm3 (150-450); RBC Distribution Width SD 44.2 fl (35.1-43.9); Red Blood Count 4.76 M/mm3 (4.2-5.4); White Blood Count 8.5 K/mm3 (4.4-11.0)
[2021-11-15 12:12] LABS: ALB/GLOB Ratio 0.9 RATIO (0.9-2.4); AST(SGOT) 23 U/L (15-37); Alanine Aminotransfer ALT/SGPT 28 U/L (13-56); Alkaline Phosphatase 52 U/L (45-117); Amylase 34 U/L (25-115); Anion Gap 4 (5-15); BUN 11 mg/dL (7-18); Calcium,Total 9.7 mg/dL (8.5-10.1); Chloride 105 mmol/L (98-107); Creatinine, Serum 0.92 mg/dL (0.55-1.02); EST Glomerular Filtration Rate 65 mL/min (>60); Est Glom Filt Rate - Afr Amer 79 mL/min (>60); Globulin 4.3 g/dL (2.2-4.2); Glucose 94 mg/dL (74-106); Lipase 160 U/L (73-393); Potassium 3.7 mmol/L (3.5-5.1); Protein, Total 8.3 g/dL (6.4-8.2); Sodium Level 140 mmol/L (136-145)
[2021-11-16 16:09] LABS: Endomysial Antibody IgA Negative (Negative)
[2021-11-17 15:36] LABS: Immunoglobulin A 296 mg/dL (87-352); t-Transglutaminase IgA <2 U/mL (0-3)
== END | disposition home or self-care (01) ==
LOC: LAB 10:22
PROVIDERS: PCP Internal Medicine; Referring Provider Nurse Practitioner Adult Health; Visit Provider Nurse Practitioner Adult Health
DX: R10.13 Epigastric pain (principal); K59.09 Other constipation
CPT/HCPCS: 36415; 80053; 82150; 82784; 83516; 83690; 85025; 86255

== ENCOUNTER → 2021-11-20 | Outpatient (CLI) | payer MEDICARE, BC, SELFPAY ==
[2021-11-23 10:33] LABS: Pancreatic Elastase, Fecal 174 (>200)
== END | disposition home or self-care (01) ==
LOC: LABSPEC 10:10
PROVIDERS: PCP Internal Medicine; Referring Provider Nurse Practitioner Adult Health; Visit Provider Nurse Practitioner Adult Health
DX: R10.13 Epigastric pain (principal)
CPT/HCPCS: 82653

== ENCOUNTER → 2021-11-21 | Outpatient (CLI) | payer MEDICARE, BC, SELFPAY ==
--- NOTE | 2021-11-21 08:14 | US_ITS ---
STUDY: ABDOMINAL ULTRASOUND - RIGHT UPPER QUADRANT REASON FOR VISIT: Female, 66 years old epigastric pain -- RUQ TECHNIQUE: Ultrasound evaluation of the right upper quadrant was performed with real-time and static valdes-scale imaging. TECHNICAL QUALITY: Adequate. COMPARISON: None. FINDINGS: Liver: The liver measures 15.4 cm. There is normal echogenicity of the liver. The bile ducts are within normal limits. There is hepatic color flow. The direction of portal flow is hepatopetal. There is no demonstrated mass lesion. Gallbladder: Normal distended gallbladder. The gallbladder wall measures 1.5 mm. There is a negative sonographic Andres''s sign. There is no pericholecystic fluid. There are no gallstones. Common Bile Duct (C.B.D.): The common bile duct measures 2.2 mm. Pancreas: Normal size of the head, body and tail of the pancreas. There is normal echogenicity of the pancreas. There is no demonstrated pancreatic mass or cyst. Right Kidney: Normal size of the right kidney. The right kidney measures 9.9 x 5.1 x 3.1 cm. Normal renal cortex. The right cortex measures 1.1 cm. There is no demonstrated renal mass or cyst. There is no right hydronephrosis. US/Abdomen Limited IMPRESSION: Normal right upper quadrant ultrasound examination. Electronically Signed: Jimmy Stern MD, JEFERSON at 17:18 EDT ,
== END | disposition home or self-care (01) ==
LOC: US 08:12
PROVIDERS: PCP Internal Medicine; Visit Provider Nurse Practitioner Adult Health
DX: R10.13 Epigastric pain (principal)
CPT/HCPCS: 76705

== ENCOUNTER → 2022-04-30 | Outpatient (CLI) | payer MEDICARE, BC, SELFPAY ==
[2022-04-30 17:31] LABS: Absolute Lymphocyte Count 1.82 X10^3/uL (0.83-4.51); Absolute Neutrophil Count 5.3 X10^3/uL (2.0-7.7); Basophil# 0.04 X10^3/uL; Basophil% 0.5 % (0-1); Eosinophil# 0.06 X10^3/uL; Eosinophils% 0.8 % (0-5); Hematocrit 41.6 % (37-47); Hemoglobin 13.8 g/dL (12.0-15.0); Lymphocyte # 1.82 X10^3/ul (0.83-4.51); Lymphocyte % 23.9 % (19-41); Mean Corp Hgb Conc 33.2 g/dL (32-36); Mean Corpuscular Hgb 32.8 pg (27.0-32.0); Mean Corpuscular Volume 98.8 fL (81-99); Mean Platelet Vol. 9.9 fl (6.2-12.0); Monocyte# 0.41 X10^3/uL; Monocyte% 5.4 % (0-10); NRBC Flagged by Analyzer 0 % (0-5); Neutrophil # 5.27 X10^3/uL (2.7-7.7); Neutrophil % 69.1 % (47-70); Platelet Count 229 K/mm3 (150-450); RBC Distribution Width SD 43.6 fl (35.1-43.9); Red Blood Count 4.21 M/mm3 (4.2-5.4); White Blood Count 7.6 K/mm3 (4.4-11.0)
[2022-04-30 17:49] LABS: AST(SGOT) 21 U/L (15-37); Alanine Aminotransfer ALT/SGPT 30 U/L (13-56); Albumin, Serum 3.5 g/dL (3.2-5.0); Alkaline Phosphatase 41 U/L (45-117); Anion Gap 2 (5-15); BUN 13 mg/dL (7-18); BUN/Creat Ratio 16.9 RATIO (10-20); Calcium,Total 9.3 mg/dL (8.5-10.1); Chloride 108 mmol/L (98-107); Creatinine, Serum 0.77 mg/dL (0.55-1.02); EST Glomerular Filtration Rate 80 mL/min (>60); Est Glom Filt Rate - Afr Amer 97 mL/min (>60); Globulin 3.4 g/dL (2.2-4.2); Glucose 91 mg/dL (74-106); Potassium 4.4 mmol/L (3.5-5.1); Protein, Total 6.9 g/dL (6.4-8.2); Sodium Level 142 mmol/L (136-145)
[2022-04-30 17:50] LABS: Vitamin D,25 Hydroxy 48.6 ng/mL
== END | disposition home or self-care (01) ==
PROVIDERS: PCP Internal Medicine; Referring Provider Internal Medicine; Visit Provider Internal Medicine
DX: K59.09 Other constipation (principal); M81.0 Age-related osteoporosis without current pathological fracture
CPT/HCPCS: 36415; 80053; 82306; 85025

== ENCOUNTER 2022-07-13 10:50 | Day surgery (SDC) | payer MEDICARE, BC, SELFPAY ==
[2022-07-13] VITALS (7 sets, daily range): BP systolic 142–163; BP diastolic 77–80; PULSE 70–80; RESP 16; TEMP 36.8–36.9; O2SAT 92–100; BMI 19.1
--- NOTE | 2022-07-13 11:00 | PCM.HP.BLA ---
History and Physical Date of Admission: 07/13/22 67 F who presents to the office today for f/u constipation. Today her main concern is CP behind lower sternum daily discomfort, asks if it's the bulge (extrinsic bulge is her concern, this was an extrinsic bulge seen on EGD in the stomach, eval was neg per bx/chest ct/abd ct), feels blah. She takes pantoprazole 40 mg daily. In reviewing with friend Josephine she notes the Linzess 290 didn't get bowels moving, still needed lactulose. Taking 2 Tbsp lactulose daily but still with some constipation, per review of her log, still has to manually disimpact some days.? Continues pantoprazole 40 mg daily. Exocrine pancreatic insufficiency--taking zenpep. Initially she had reported improved epigastric pain with pancreatic enzymes. Recently started escitalopram, too soon to tell if helping ROS Const Constitutional: Positive for weight change Gastro GI: Positive for constipation and diarrhea Endo Endocrine: Positive for weight change Exam Const General: cooperative, comfortable and anxious Nutritional Appearance: thin Orientation: alert, awake and oriented x3 Quality Reporting Tobacco Screening (CMS 138) Smoking Status: Never smoker Assessment and Plan Assessment and Plan (1) Chronic constipation: ?Status:?Chronic ?Plan: Continue lactulose bid. Try samples of Trulance, will check on her in a week or so. We still need to get her constipation managed, then that might help with the epigastric/lower retrosternal discomfort. Initially she seemed to have some relief of that pain with pancreatic enzymes. Stress does seem to make it worse. Schedule EGD and f/u with Dr Hurley (2) Epigastric pain: ?Status:?Chronic ?Plan: as above I have examined the patient and the H&P has been reviewed. There are no clinical changes since date of exam.
[2022-07-13] MEDS: Lactated Ringers 1,000 ML 15 ML IV (11:18)
--- NOTE | 2022-07-13 12:00 | IMM_PTH ---
PATIENT: ALMA ABARCA LOC: EN U#:[id number] AGE/SX: 67/F ROOM: RE07/13/[address]: Dr. Arsh Hurley DO : 1955 BED: DIS: 07/13/2022 SPEC #: [id number] RECD: 07/16/22 12:33 STATUS: BETY REQ #: [id number] NATASHA: 07/13/22 12:[address]: Arsh Hurley DEPT: IMMUNOHISTOCHEMISTRY RECD BY: Soheila Weaver ENTERED: 07/16/22 12:34 SP TYPE: IMMUNO OTHR DR: Dr. Khurram Palmer MD Tissues: Stomach, NOS Procedures: H Pylori (initial) PHYSICIAN & INSTITUTION [place] [address] SPECIMEN INFORMATION: Tissue Source: Gastric pylorus Clinical Info: Abdominal pain Specimen Number: [id number] CPT code: 49873 METHODOLOGY: Deparaffinized sections of prefer/formalin-fixed tissue or PAP/DQ stained slides are incubated with monoclonal/polyclonal antibodies/oligonucleotide probes. Localization is made via biotin free immunoperoxidase method. Appropriate controls are performed and reacted as expected. Results on target cell population are indicated in the following table: RESULTS: ANTIBODY / CLONE RESULT H Pylori (polyclonal) negative These tests were developed and their performance characteristics determined by [facility]. They may not have been cleared or approved by the U.S. Food and Drug Administration. The FDA has determined that such clearance or approval is not necessary. The above immunohistochemical/dualISH markers are ordered and reviewed by the Pathologist. INTERPRETATION: Gastric pylorus, biopsy: Negative for Helicobacter pylori organisms. AM:royce 07/17/2022
--- NOTE | 2022-07-13 12:00 | EGD_PTH ---
PATIENT: ALMA ABARCA LOC: EN U#:[id number] AGE/SX: 67/F ROOM: RE07/13/[address]: Dr. Arsh Hurley DO : 1955 BED: DIS: 07/13/2022 SPEC #: [id number] RECD: 07/13/22 15:19 STATUS: BETY RETunde #: [id number] NATASHA: 07/13/22 12:[address]: Arsh Hurley DEPT: SURGICAL PATHOLOGY RECD BY: Lia Hamilton ENTERED: 07/16/22 08:47 SP TYPE: EGD BIOPSY OT DR: Dr. Khurram Palmer MD Tissues: Gastric mucous membrane Procedures: Surgery Specimen Level IV HEADER OPERATION: EGD ([facility]) with biopsies PRE-OP DIAGNOSIS: Abdominal pain TISSUE SUBMITTED: Gastric pylorus MICROSCOPIC DIAGNOSIS Gastric pylorus, biopsy: Chronic gastritis. See comment. AM:royce 07/17/2022 COMMENT The results of immunohistochemistry for Helicobacter pylori will be reported separately ([id number]). MICROSCOPIC DESCRIPTION Slides are reviewed. GROSS DESCRIPTION Received in fixative is one container labeled with the patient's name and designated gastric pylorus. The specimen consists of two irregular fragments of light canales soft tissue that in aggregate measure 0.6 x 0.3 x 0.1 cm. The specimen is totally submitted in one cassette. / SJ:royce 07/16/2022 TC:3 CPT: 31723
--- NOTE | 2022-07-13 13:17 | OP.EGD_ITS ---
Patient Name: Ilsa Lal Procedure Date: 07/13/2022 12:49 PM Date of : 1955 Age: 67 Procedure: Upper GI endoscopy Indications: Epigastric abdominal pain Providers: Arsh Hurley DO Referring MD: Arsh Hurley DO Medicines: Monitored Anesthesia Care Patient Profile: This is a 67 year old female. Refer to note in patient chart for documentation of history and physical. Patient has symptoms of chronic epigastric abdominal pain. Complications: No immediate complications. Procedure: Pre-Anesthesia Assessment: - Prior to the procedure, a History and Physical was performed, and patient medications and allergies were reviewed. The patient is competent. The risks and benefits of the procedure and the sedation options and risks were discussed with the patient. All questions were answered and informed consent was obtained. Patient identification and proposed procedure were verified by the physician. Mental Status Examination: alert and oriented. Prophylactic Antibiotics: The patient does not require prophylactic antibiotics. Prior Anticoagulants: The patient has taken no previous anticoagulant or antiplatelet agents. After reviewing the risks and benefits, the patient was deemed in satisfactory condition to undergo the procedure. The anesthesia plan was to use monitored anesthesia care (MAC). Immediately prior to administration of medications, the patient was re-assessed for adequacy to receive sedatives. The heart rate, respiratory rate, oxygen saturations, blood pressure, adequacy of pulmonary ventilation, and response to care were monitored throughout the procedure. The physical status of the patient was re-assessed after the procedure. After obtaining informed consent, the endoscope was passed under direct vision. Throughout the procedure, the patient's blood pressure, pulse, and oxygen saturations were monitored continuously. The gastroscope was introduced through the mouth, and advanced to the second part of duodenum. The upper GI endoscopy was accomplished without difficulty. The patient tolerated the procedure well. Scope In: 12:59:04 PM Scope Out: 1:07:19 PM Total Procedure Duration Time 0 hours 8 minutes 15 seconds Findings: The examined esophagus was normal. A small hiatal hernia was present. Localized moderately erythematous mucosa without bleeding was found in the stomach. A single 5 mm sessile polyp with no bleeding and no stigmata of recent bleeding was found in the prepyloric region of the stomach. Biopsies were taken with a cold forceps for histology. Verification of patient identification for the specimen was done. Estimated blood loss was minimal. The second portion of the duodenum was normal. Biopsies were taken with a cold forceps for histology. Verification of patient identification for the specimen was done. Estimated blood loss was minimal. Impression: - Normal esophagus. - Small hiatal hernia. - Erythematous mucosa in the stomach. - A single gastric polyp. Biopsied. - Normal second portion of the duodenum. Biopsied. Recommendation: - Discharge patient to home. - Resume previous diet. - Continue present medications. - Await pathology results. May need endoscopic ultrasound and possible submucosal endoscopic dissection. - Check gastrin level Procedure Code(s): --- Professional --- 42274, Esophagogastroduodenoscopy, flexible, transoral; with biopsy, single or multiple CPT copyright 2017 [employer]. All rights reserved. The codes documented in this report are preliminary and upon marketing lead review may be revised to meet current compliance requirements. Arsh Hurley DO 07/13/2022 1:17:08 PM This report has been signed electronically. Number of Addenda: 0 Note Initiated On: 07/13/2022 12:49 PM
--- NOTE | 2022-07-13 13:18 | OP.CCLET_ITS ---
07/13/2022 Khurram Palmer MD [address] [place] [address] [place] [address] Re : Upper GI endoscopy procedure for Ilsa Lal Dear Dr. Palmer This procedure was performed on Wednesday, July 13, 2022. My impressions and recommendations are as follows: Impressions : - Normal esophagus. - Small hiatal hernia. - Erythematous mucosa in the stomach. - A single gastric polyp. Biopsied. - Normal second portion of the duodenum. Biopsied. Recommendations : - Discharge patient to home. - Resume previous diet. - Continue present medications. - Await pathology results. May need endoscopic ultrasound and possible submucosal endoscopic dissection. - Check gastrin level My findings are described in the full procedure note, which is enclosed. If I can be of further assistance, please feel free to contact me at . Sincerely, Arsh Hurley, 07/13/2022 1:17:08 PM This report has been signed electronically.
== END 2022-07-13 14:20 | disposition home or self-care (01) ==
LOC: EN 10:54 → AC 10:54
PROVIDERS: PCP Internal Medicine; Referring Provider Internal Medicine; Visit Provider Internal Medicine Gastroenterology
PROC: 0DJ08ZZ Inspection of Upper Intestinal Tract, Via Natural or Artificial Opening Endoscopic (ICD-10-PCS; CPT 43235; principal; 2022-07-13 11:55)
DX: K31.7 Polyp of stomach and duodenum (principal); R10.13 Epigastric pain; K44.9 Diaphragmatic hernia without obstruction or gangrene; K59.09 Other constipation; K29.50 Unspecified chronic gastritis without bleeding
CPT/HCPCS: 43239; 88305; 88342; J7120; J2405

== ENCOUNTER → 2022-07-18 | Outpatient (CLI) | payer MEDICARE, BC, SELFPAY ==
[2022-07-18 09:42] LABS: Cholesterol 215 mg/dL (200); High Density Lipoprotein 90 mg/dL; Triglycerides 71 mg/dL; Very Low Density Lipoprotein 14 mg/dL (5-40)
[2022-07-20 14:09] LABS: Gastrin, Serum 161 pg/mL (0-115)
== END | disposition home or self-care (01) ==
LOC: LAB 08:06
PROVIDERS: PCP Internal Medicine; Referring Provider Nurse Practitioner Adult Health; Visit Provider Nurse Practitioner Adult Health
DX: K31.7 Polyp of stomach and duodenum (principal); E78.2 Mixed hyperlipidemia
CPT/HCPCS: 36415; 80061; 82941

== ENCOUNTER → 2022-08-23 | Outpatient (CLI) | payer MEDICARE, BC, SELFPAY ==
[2022-08-23 16:54] LABS: Absolute Lymphocyte Count 1.93 X10^3/uL (0.83-4.51); Absolute Neutrophil Count 3.2 X10^3/uL (2.0-7.7); Basophil# 0.04 X10^3/uL; Basophil% 0.7 % (0-1); Eosinophil# 0.21 X10^3/uL; Eosinophils% 3.6 % (0-5); Hematocrit 39.4 % (37-47); Lymphocyte # 1.93 X10^3/ul (0.83-4.51); Lymphocyte % 33.4 % (19-41); Mean Corpuscular Hgb 32.3 pg (27.0-32.0); Mean Corpuscular Volume 97.8 fL (81-99); Mean Platelet Vol. 9.7 fl (6.2-12.0); Monocyte# 0.35 X10^3/uL; Monocyte% 6.1 % (0-10); NRBC Flagged by Analyzer 0 % (0-5); Neutrophil # 3.23 X10^3/uL (2.7-7.7); Platelet Count 229 K/mm3 (150-450); RBC Distribution Width CV 12.3 % (11.6-14.6); RBC Distribution Width SD 44.3 fl (35.1-43.9); Red Blood Count 4.03 M/mm3 (4.2-5.4); White Blood Count 5.8 K/mm3 (4.4-11.0)
[2022-08-23 17:27] LABS: ALB/GLOB Ratio 0.9 RATIO (0.9-2.4); AST(SGOT) 25 U/L (15-37); Alanine Aminotransfer ALT/SGPT 26 U/L (13-56); Albumin, Serum 3.4 g/dL (3.2-5.0); Alkaline Phosphatase 47 U/L (45-117); Anion Gap 4 (5-15); BUN 19 mg/dL (7-18); BUN/Creat Ratio 21.6 RATIO (10-20); Calcium,Total 8.9 mg/dL (8.5-10.1); Chloride 106 mmol/L (98-107); Creatinine, Serum 0.88 mg/dL (0.55-1.02); EST Glomerular Filtration Rate 68 mL/min (>60); Est Glom Filt Rate - Afr Amer 83 mL/min (>60); Globulin 3.7 g/dL (2.2-4.2); Glucose 99 mg/dL (74-106); Potassium 4.4 mmol/L (3.5-5.1); Protein, Total 7.1 g/dL (6.4-8.2); Sodium Level 140 mmol/L (136-145); T4 Free Direct 1.04 ng/dL (0.76-1.46); Thyroid Stim Hormone (TSH) 1.76 uIU/mL (0.358-3.74)
== END | disposition home or self-care (01) ==
LOC: BIMLAB 16:01
PROVIDERS: PCP Internal Medicine; Referring Provider Internal Medicine; Visit Provider Internal Medicine
DX: K21.9 Gastro-esophageal reflux disease without esophagitis (principal); R41.3 Other amnesia; E78.5 Hyperlipidemia, unspecified
CPT/HCPCS: 36415; 80053; 84439; 84443; 85025

== ENCOUNTER → 2022-10-29 | Outpatient (CLI) | payer MEDICARE, BC, SELFPAY ==
--- NOTE | 2022-10-29 14:49 | CT_ITS ---
EXAM: CT ABDOMEN AND PELVIS WITH IV CONTRAST- CT Abdomen And Pelvis W/ Contrast Injection HISTORY: Un intentional weight loss LOSS OF APPETITE, 48LB WT LOSS IN 2 YRS TECHNIQUE: Routine protocol CT abdomen pelvis. IV Contrast: Oral and amp; IV Readi-CAT and amp; 100mL Isovue-370 . Oral Contrast: with. Sagittal and coronal images were reconstructed. RADIATION DOSAGE (If Supplied By Facility): CTDIvol = ( 8 ) mGy, DLP = ( 286.98 ) mGycm Individualized dose optimization techniques were used for this CT. COMPARISON: CT abdomen and pelvis 06/13/2021. LIMITATIONS: None. FINDINGS: LOWER CHEST: Unremarkable. LIVER: Unremarkable. GALLBLADDER/BILE DUCTS: Unremarkable. PANCREAS: Unremarkable. SPLEEN: Unremarkable. ADRENAL GLANDS: Unremarkable. KIDNEYS / URETERS: Unremarkable. BOWEL / MESENTERY: Suggestion of wall thickening of the gastric antrum likely exaggerated by suboptimal distention. No adjacent stranding. No bowel obstruction. Large amount stool throughout the colon. APPENDIX: Not identified. PERITONEUM: No free air. No free fluid. VESSELS: Abdominal aorta is normal caliber. RETROPERITONEUM: Unremarkable. REPRODUCTIVE ORGANS: Unremarkable. BLADDER: Minimally distended. ABDOMINAL WALL: Unremarkable. BONES: No acute abnormality. OTHER: None. CT/Abdomen/Pelvis WITH Contrast IMPRESSION: Suggestion of wall thickening of the gastric antrum likely nondistention, gastritis or other process cannot be entirely excluded. No other acute findings. Large amount of colonic stool. Electronically Signed: Madie Kidd MD at 7:28 EDT ,
[2022-10-29 15:23] LABS: CREATININE FINGERSTICK < 0.9 mg/dL (0.55-1.02); EGFR FINGERSTICK > 60.0000 mL/min (>60)
== END | disposition home or self-care (01) ==
LOC: CT 14:48
PROVIDERS: PCP Internal Medicine; Referring Provider Internal Medicine; Visit Provider Internal Medicine
DX: R63.4 Abnormal weight loss (principal)
CPT/HCPCS: 74177; Q9967

== ENCOUNTER → 2023-02-28 | Outpatient (CLI) | payer MEDICARE, BC, SELFPAY ==
--- OUTSIDE RECORDS SUMMARY | 2023-02-28 08:48 | XMS RPT_ITS | CCD ---
Author Name Unknown Address [address] [place] [address] Organization [facility] Care Team Providers Care Pony Ride Attendant Name Role Phone Unavailable Primary Care Provider SAVI Lantigua (AUD) Attending Unavailable SAVI GONZALEZ (AUD) Attending Unavailable MIGUEL SKY Attending Unavailable HUMBLE BAGLEY Attending Unavailable SAVI GONZALEZ (AUD) Attending Unavailable SAVI GONZALEZ (AUD) Attending Unavailable SAIV GONZALEZ (AUD) Attending Unavailable Unavailable Primary Care Provider Unavaileverette yepez Allergies Allergy Classification Reported Allergen(s) Allergy Type Date of Onset Reaction(s) Facility (13 sources) Cat; Translations: [CATS] Allergy to substance 5 Itching [facility] (13 sources) Codeine; Translations: [CODEINE] Drug Allergy 9 Vomiting [facility] (13 sources) Seasonal allergy; Translations: [SEASONAL ALLERGIES] Allergy to substance 9 Other: See Comments [facility] Work Phone: Medications Completed/Discontinued Medications Medication Drug Class(es) Dates Sig (Normalized) Sig (Original) fexofenadine hydrochloride 180 mg oral tablet (12 sources) Histamine-1 Receptor Antagonist Start: 02-20-2018 take 1 tablet by mouth once daily fexofenadine (ASA) 180 mg tablet Take 1 tablet by mouth once daily. (in the fall; or if going to be exposed to cats) 0 02/20/2018 Active Problems Active Problems Problem Classification Problem Date Documented Da te Episodic/Chronic Abdominal pain (1 source) Abdominal pain; Translations: [Abdominal pain, unspecified site] Episodic Anxiety disorders (12 sources) Anxiety disorder; Translations: [Anxiety disorder, unspecified] Onset: 0 04-06-2009 Chronic Disorders of lipid metabolism (12 sources) Hypercholesterolemia; Translations: [Pure hypercholesterolemia, unspecified] 11-10-2008 Chronic Hemorrhoids (12 sources) Hemorrhoids; Translations: [Unspecified hemorrhoids] 11-10-2008 Episodic Menopausal disorders (12 sources) Perimenopausal state; Translations: [Menopausal and female climacteric states] Onset: 9 12-23-2008 Chronic Miscellaneous mental health disorders (12 sources) Bruxism (teeth grinding); Translations: [Other somatoform disorders] Onset: 3 08-01-2012 Chronic Osteoarthritis (12 sources) Osteoarthritis of left knee joint; Translations: [Unilateral primary osteoarthritis, left knee] Onset: 5 10-14-2014 Chronic Other ear and sense organ disorders (17 sources) Sensorineural hearing loss, bilateral; Translations: [Sensorineural hearing loss, bilateral] Onset: 8 Chronic Other ear and sense organ disorders (12 sources) Asymmetrical sensorineural hearing loss; Translations: [Sensorineural hearing loss, bilateral] Onset: 7 08-07-2006 Chronic Other ear and sense organ disorders (12 sources) Bilateral sensory hearing loss; Translations: [Sensorineural hearing loss, bilateral] Onset: 0 06-07-2009 Chronic Other ear and sense organ disorders (12 sources) Cochlear prosthesis in situ; Translations: [Cochlear implant status] Onset: 3 06-18-2012 Chronic Other ear and sense organ disorders (1 source) Cochlear implant status; Translations: [Cochlear implant follow-up] Onset: 8 Chronic Other ear and sense organ disorders (1 source) Sensorineural hearing loss, bilateral; Translations: [Sensorineural hearing loss, bilateral] Onset: 8 Chronic Other eye disorders (12 sources) Vitreous floaters of right eye; Translations: [Other vitreous opacities, right eye] Onset: 6 04-15-2015 Chronic Other gastrointestinal disorders (1 source) Gastrointestinal tract problem; Translations: [Other abnormal clinical findings] Episodic Other nutritional; endocrine; and metabolic disorders (1 source) Weight loss; Translations: [Loss of weight] Episodic Other upper respiratory disease (12 sources) Allergic rhinitis; Translations: [Allergic rhinitis, unspecified] 11-10-2008 Chronic Past or Other Problems Problem Classification Problem Date Documented Da te Episodic/Chronic Complications of surgical procedures or medical care (12 sources) Epithelial ingrowth; Translations: [Other postprocedural complications and disorders of eye and adnexa, not elsewhere classified] Onset: 04-15-2015 04-15-2015 Episodic Other aftercare (14 sources) Cochlear prosthesis in situ; Translations: [Encounter for other specified surgical aftercare] Onset: 07-23-2017 07-23-2017 Episodic Other aftercare (1 source) Encounter for other specified surgical aftercare; Translations: [Cochlear implant follow-up] Onset: 07-23-2017 Episodic Other connective tissue disease (12 sources) Muscle pain; Translations: [Myalgia and myositis, unspecified] Onset: 08-01-2012 08-01-2012 Episodic Other gastrointestinal disorders (12 sources) Constipation; Translations: [Constipation, unspecified] Onset: 11-10-2008 11-10-2008 Episodic Other non-traumatic joint disorders (12 sources) Pain in lower limb; Translations: [Pain in unspecified knee] Onset: 09-29-2014 09-29-2014 Episodic Other non-traumatic joint disorders (12 sources) Pain in left knee; Translations: [Pain in joint, lower leg] Onset: 10-14-2014 10-14-2014 Episodic Other screening for suspected conditions (not mental disorders or infectious disease) (12 sources) Patient encounter status; Translations: [Encounter for other screening for malignant neoplasm of breast] Onset: 12-23-2008 12-23-2008 Episodic Other skin disorders (12 sources) Sebaceous cyst of skin; Translations: [Sebaceous cyst] Onset: 12-08-2009 02-06-2021 Episodic Other skin disorders (12 sources) Seborrheic keratosis; Translations: [Other seborrheic keratosis] Onset: 12-08-2009 02-06-2021 Episodic Rehabilitation care; fitting of prostheses; and adjustment of devices (12 sources) Follow-up status; Translations: [Encounter for fitting and adjustment of other external prosthetic devices] Onset: 06-07-2009 06-07-2009 Episodic Results Test Name Value Interpretation Reference Range Facil ity Encounters Encounter Date Encounter Type Care Provider Facility Start: 01-03-2023 Telephone encounter Humble Jhaveri, PhD Work Phone: Audiology Procedures Date Procedure Procedure Detail Performing Clinician Start: 04-18-2017 Colonoscopy Savi cerrato Work Phone: Start: 04-03-2017 Mammography Savi cerrato Work Phone: Start: 02-22-2017 Adult depression screening assessment Savi Gonzalez Work Phone: Start: 09-21-2014 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 Savi Misael Work Phone: Plan of Treatment Date Care Activity Detail Author Start: 02-08-2023 LIPID SCREEN LIPID SCREEN [facility] Start: 04-18-2022 Colonoscopy COLONOSCOPY [facility] Start: 04-18-2022 COLORECTAL CANCER SCREENING COLORECTAL CANCER SCREENING [facility] Start: 02-11-2022 ADVANCE DIRECTIVE DISCUSSION ADVANCE DIRECTIVE DISCUSSION [facility] Start: 02-11-2022 DEPRESSION ASSESSMENT DEPRESSION ASSESSMENT [facility] Start: 10-12-2021 Influenza vaccination [facility] Start: 09-26-2021 EUSELIAS, Provider: Marychuy Cage, Status: Pen, Time: 11:40 AM SSUAN, Provider: Marychuy Cage, Status: Pen, Time: 11:40 AM [facility] 450 DO Work Phone: Start: 07-17-2021 DIABETES SCREEN DIABETES SCREEN [facility] Start: 02-11-2021 ADVANCE DIRECTIVE DISCUSSION ADVANCE DIRECTIVE DISCUSSION [facility] Start: 01-21-2021 BONE DENSITY BONE DENSITY [facility] Start: 01-21-2021 PNEUMOCOCCAL: 65+ (3 - PPSV23 if available, else PCV20) PNEUMOCOCCAL: 65+ (3 - PPSV23 if available, else PCV20) [facility] Start: 01-21-2021 PNEUMOCOCCAL: 65+ (3 - PPSV23 or PCV20) PNEUMOCOCCAL: 65+ (3 - PPSV23 or PCV20) [facility] Start: 01-21-2021 PNEUMOVAX AGE 65 AND OVER WITH 5YR LOOKBACK (#1) PNEUMOVAX AGE 65 AND OVER WITH 5YR LOOKBACK (#1) [facility] Start: 12-08-2020 Urine microalbumin profile DTAP,TDAP,TD (2 - Td or Tdap) [facility] Start: 04-03-2018 Mammography MAMMOGRAM [facility] Start: 02-22-2018 Adult depression screening assessment DEPRESSION SCREENING [facility] Start: 01-21-2006 SHINGRIX VACCINE (1 of 2) SHINGRIX VACCINE (1 of 2) [facility] Start: 01-21-2001 COLOGUARD (FIT-DNA) COLOGUARD (FIT-DNA) [facility] Start: 01-21-[address] COLONOGRAPHY [facility] Start: 01-21-2001 FECAL OCCULT BLOOD FECAL OCCULT BLOOD [facility] Start: 01-21-2001 SIGMOIDOSCOPY SIGMOIDOSCOPY [facility] Start: 01-21-1974 HEPATITIS C SCREENING HEPATITIS C SCREENING [facility] Start: 01-21-1974 HIV SCREENING HIV SCREENING [facility] Start: 01-21-1961 COVID-19 VACCINE (#1) COVID-19 VACCINE (#1) [facility] Start: 01-21-1961 COVID-19 VACCINE (1) COVID-19 VACCINE (1) [facility] Start: 1955 COVID-19 VACCINE (#1) COVID-19 VACCINE (#1) [facility] Immunizations Immunization Date Immunization Notes Care Provider Aakash kaba 12-26-2017 influenza, seasonal, injectable Savi Misael Work Phone: [facility] 12-02-2015 influenza, seasonal, injectable Savi Misael Work Phone: [facility] Work Phone: 12-08-2013 influenza, seasonal, injectable Savi Misael Work Phone: [facility] 06-18-2012 pneumococcal conjuga te vaccine, 13 valent Savi Misael Work Phone: [facility] 12-08-2010 tetanus toxoid, redu kellen diphtheria toxoid, and acellular pertussis vaccine, adsorbed Savi Misael Work Phone: [facility] 03-31-2009 pneumococcal polysaccharide vaccine, 23 valent Savi Misael Work Phone: [facility] Payers Date Payer Category Payer Medicare MEDICARE MEDICAR E A AND B [id number] 2021-Present [phone] [place] [address] Medicare [id number] 2021 Medicare [id number] 2021 Medicare [id number] 2021 Medicare MEDICARE MEDICAR E A AND B [id number] 2021-Present [phone] [place] [address] Medicare [id number] 2021 Unknown ANTHEM AMARI ND DICARE SUPPLEMENT [id number] 2021-Present [phone] [address] [place] [address] Indemnity [id number] 2012 Unknown Social History Date Type Detail Facility Start: 09-28-2014 Tobacco smoking stat [facility] Never smoked tobacco [facility] Work Phone: Start: 02-20-2018 Alcohol intake Current drinke r of alcohol (finding) [facility] Start: 12-14-2008 History SDOH Alcohol Comment a glass of wine with dinner maybe once a month [facility] Start: 1955 Sex Assigned At Female C [facility] Work Phone: Start: 05-05-2021 End: 08-07-2021 Exposure to SARS-CoV-2 (event) Not sure [facility] Start: 09-28-2014 Tobacco use and exposure Smokeless tobacco non-user [facility] Medical Equipment Procedure Code Equipment Code Equipment Origin al Text Equipment Identifier Dates Implant Sys Coch lear Cont Adv - [id number] Start: 05-20-2009 Clinical Notes 12-23-2008 to 02-13-2022 Telephone Encounter - Mecca Grover, PhD - 02/13/2022 7:32 AM ESTTelephone Encounter - Savi Gonzalez - 08/25/2021 7:26 AM Mecca Brody, PhD - 08/07/2021 1:00 PM EDT Note Date & Type Note Facility 02-13-2022 Miscellaneous Notes Email communication: Toño Rosenbaum, Paulino New Year! You do have an N7 per my note from July 2021. The N8 has just come out, but your N7 has to be 5 years old before Medicare will cover an upgrade. That will be July 2026. Hope this helps. From: Ilsa Lal <[email or web address]> Sent: Saturday, February 12, 2022 6:22 PM To: Humble Bagley <[email or web address]> Subject: [EXT] Re: N6 or N7? I checked my papers and see that I have the N6. Is there an N7? I m just wondering why I don t have the N7? Thank you again, in advance, for your time.--Ilsa Sent from my iPhone > On Feb 12, 2022, at 5:24 PM, Ilsa Lal <[email or web address]> wrote: > > ?> ?Hi! Which of these do I currently have? The N6 or N7. I thought that this past Spring, I got the N > > Thank you, in advance, for your time.--Ilsa Lal > > Sent from my iPhone documented in this encounter [facility] 08-25-2021 Miscellaneous Notes EMAIL CORRESPONDENCE Ilsa Lal <[email or web address]> Thank you for this information. I think I ll leave my hearing aid alone for now. 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 I ll schedule sometime in the spring to do the music program as per your email. Savi Méndez Margaret, The hearing aid is indeed cutting off the music due to the high noise exposure level of the music. There is an automatic music program in the hearing aid that is meant to allow music to be amplified without being clipped or compressed; however, once the music is too loud, it will not amplify that loud sound signal. 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 For most people, we would recommend they wear musician's earplugs to protect their hearing as opposed to hearing aids in this context. I think your best option may be to remove the hearing aid during the performances and continue with the implant alone. If desired, we can set up an appointment to work on a manual music program for your hearing aid, but it may still cut off the high exposure levels. Thanks, Savi Lal < > Toño! Does my Phonak hearing aid shut off when sounds are too loud? 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 Can this be adjusted to NOT do that? It is kind of annoying. However, if this is to protect/preserve my hearing, then I guess I ll have to ignore it when it cuts out. Fortunately, my cochlear implant is still on and I can hear where I am suppose to be playing. Ilsa documented in this encounter [facility] 08-07-2021 Note HNO ID: [id number] Author: Mecca Grover, PhD Service: ? Author Type: Crankshaft Straightener Type: Progress Notes Filed: 08/24/2021 8:40 PM Note Text: [facility] [place] [facility] COCHLEAR IMPLANT ADULT PROGRAMMING Name: Ilsa Way Hali CCF#: [id number] Date of Service: August 07, 2021 Date of : 1955 Age: [age] year old COCHLEAR IMPLANT INFORMATION (see below for all device details) RIGHT ear: External Processor: [employer] [id number] (Nucleus 7) External Processor [employer] CP 1000 (Nucleus 7) Processor SN [id number] Processor (CP810) SN [id number] Processor (CP810) SN [id number] Magnet Strength 1/2 Internal Device Cochlear Nucleus CI512 Internal Device SN [id number] Inactive electrodes None Surgery Date 05/20/2009 Initial activation date 06/07/2009 Surgeon Lionel Zuluaga MD Left ear:?ReSound Ramirez Q7 [id number]? SN: [id number]? Earmold/Tubing: custom earmold? Fitting Date:??05/15/2021 Repair Warranty Expiration Date:??05/19/2021 Loss/Damage Expiration Date:??05/19/2021 Fitting Crankshaft Straightener:?Mecca Rivers, LORA/A ? Back-up devices: Phonak Bolero V90-SP; SN: [id number]; with 13 thick tubing,?full shell earmold, with pressure vent. Both devices were donated to the patient and were fit 08/19/17 at the Clinic. Phonak Ashley S III UP; SN: [id number]; Shell Earmolds. Fit at the Clinic and is being managed by us. Accessories: Remote Control (CR310) SN: [id number] Remote Glass Breaker (Nucleus 5 and Nucleus 6) Mini Microphone 2+ HISTORY: Ms. Lal was seen for programming of upgraded speech processor and monitoring of the devices. Patient was last seen for adult cochlear implant programming on July 17, 2019. The patient reported: * Doing well with her implant and hearing aid * Adequate and balanced volume between the devices * Microphone cover last changed within the past year * No pain, redness, irritation, or soreness at magnet site. * Uses Program 1 at Volume 6 * Goal for appointment is to get connected and programmed to her updated sound processor, which she brought with her [employer]IDED AUDIOMETRIC TESTING: Audiologic testing was completed in the sound field with the speech processor(s) at user settings (Program: 1; Volume: 6; Sensitivity: 12.) after programming. See the SmartForm Audiogram for obtained thresholds. Speech perception testing was completed at 60 crabber using recorded stimuli in the sound field at 0 degrees azimuth. NOTE: The contralateral ear was not plugged and muffed or masked during testing. The following testing and results were obtained: Fzhjhvypu-Zqwsxiv-Mavczwlea Words (CNC) Test Condition List # Phonemes Words Clinically significant change compared to previous visit? Clinically significant change compared to BEST? Right Ear 3 (words 1-25) 95% 84% No, stable (72% on 07/17/2019) No, stable (72% on 07/17/2019 and 07/29/15) Bimodal 4 (words 1-25) 99% 96% Yes, increase (76% on 08/19/2017) No, stable (100% on 05/27/14) AZ BIO (quiet) Test Condition List # Score Clinically significant change compared to previous visit? Clinically significant change compared to BEST? Right Ear 2 87% No, stable (83% on 07/17/2019) No, stable (92% on 07/29/2015) Bimodal 7 99% Yes, increase (96% on 06/02/12) Yes, increase (96% on 06/02/12) AZ BIO (+5 SNR) Test Condition List # Score Clinically significant change compared to previous visit? Clinically significant change compared to BEST? Right Ear 3 31% No, stable (20% on 08/19/2017) No, stable (24% on 07/29/2015) Bimodal 6 60% No, stable (59% on 07/17/2019) No, stable (59% on 07/17/2019) Summary: Aided detection thresholds fell between 15-30 dB HL from 250-6000 Hz. Speech perception testing revealed improvements on words in quiet and sentences in quiet in the bimodal condition when compared to previous visit and overall best ([employer] only). Bimodal sentences in noise and right cochlear implant in isolation performance on all tests showed stable performance. COCHLEAR IMPLANT PROGRAMMING/TROUBLESHOOTING: Troubleshooting: Patient was using size 1 magnet for N6. Magnet size for the N7 processor was changed to Size 1/2. Corresponding color was not available in clinic stock. This was ordered from [employer] with direct shipment to Ms Lal's residence (RMA: [id number]). Demonstration was provided on volume and program adjustment using [employer] remote. Datalogging: N/a (new processor) RIGHT Programming: Headset pressure, magnet strength, and incision site were checked with no problems noted. Electrode impedances, used to monitor internal device function, were measured across the electrode array. Impedances were WNL across all active electrodes. MP1 remains open and had been previously deactivated with current use of MP2 coupling mode. Review of impedances obtained today with comparison to previous 4 visits and 60-day postact (more content not included)... [facility] 08-07-2021 History of Presen t illness Narrative [facility] [place] [facility] COCHLEAR IMPLANT ADULT PROGRAMMING Name: Ilsa Lal CCF#: [id number] Date of Service: August 07, 2021 Date of : 1955 Age: [age] year old COCHLEAR IMPLANT INFORMATION (see below for all device details) RIGHT ear: External Processor: [employer] [id number] (Nucleus 7) External Processor [employer] CP 1000 (Nucleus 7) Processor SN [id number] Processor (CP810) SN [id number] Processor (CP810) SN [id number] Magnet Strength 1/2 Internal Device Cochlear Nucleus CI512 Internal Device SN [id number] Inactive electrodes None Surgery Date 05/20/2009 Initial activation date 06/07/2009 Surgeon Lionel Zuluaga MD Left ear: ReSound Ramirez Q7 [id number] SN: [id number] Earmold/Tubing: custom earmold Fitting Date: 05/15/2021 Repair Warranty Expiration Date: 05/19/2021 Loss/Damage Expiration Date: 05/19/2021 Fitting Crankshaft Straightener: Mecca Rivers, CCC/A Back-up devices: Phonak Bolero V90-SP; SN: [id number]; with 13 thick tubing, full shell earmold, with pressure vent. Both devices were donated to the patient and were fit 08/19/17 at the Clinic. Phonak Ashley S III UP; SN: [id number]; Shell Earmolds. Fit at the Clinic and is being managed by us. Accessories: Remote Control (CR310) SN: [id number] Remote Glass Breaker (Nucleus 5 and Nucleus 6) Mini Microphone 2+ HISTORY: Ms. Lal was seen for programming of upgraded speech processor and monitoring of the devices. Patient was last seen for adult cochlear implant programming on July 17, 2019. The patient reported: * Doing well with her implant and hearing aid * Adequate and balanced volume between the devices * Microphone cover last changed within the past year * No pain, redness, irritation, or soreness at magnet site. * Uses Program 1 at Volume 6 * Goal for appointment is to get connected and programmed to her updated sound processor, which she brought with her AIDED AUDIOMETRIC TESTING: Audiologic testing was completed in the sound field with the speech processor(s) at user settings (Program: 1; Volume: 6; Sensitivity: 12.) after programming. See the SmartForm Audiogram for obtained thresholds. Speech perception testing was completed at 60 crabber using recorded stimuli in the sound field at 0 degrees azimuth. NOTE: The contralateral ear was not plugged and muffed or masked during testing. The following testing and results were obtained: Bnlscihxj-Ydrqujg-Nerwrscxr Words (CNC) Test Condition List # Phonemes Words Clinically significant change compared to previous visit? Clinically significant change compared to BEST? Right Ear 3 (words 1-25) 95% 84% No, stable (72% on 07/17/2019) No, stable (72% on 07/17/2019 and 07/29/15) Bimodal 4 (words 1-25) 99% 96% Yes, increase (76% on 08/19/2017) No, stable (100% on 05/27/14) AZ BIO (quiet) Test Condition List # Score Clinically significant change compared to previous visit? Clinically significant change compared to BEST? Right Ear 2 87% No, stable (83% on 07/17/2019) No, stable (92% on 07/29/2015) Bimodal 7 99% Yes, increase (96% on 06/02/12) Yes, increase (96% on 06/02/12) AZ BIO (+5 SNR) Test Condition List # Score Clinically significant change compared to previous visit? Clinically significant change compared to BEST? Right Ear 3 31% No, stable (20% on 08/19/2017) No, stable (24% on 07/29/2015) Bimodal 6 60% No, stable (59% on 07/17/2019) No, stable (59% on 07/17/2019) Summary: Aided detection thresholds fell between 15-30 dB HL from 250-6000 Hz. Speech perception testing revealed improvements on words in quiet and sentences in quiet in the bimodal condition when compared to previous visit and overall best ([employer] only). Bimodal sentences in noise and right cochlear implant in isolation performance on all tests showed stable performance. COCHLEAR IMPLANT PROGRAMMING/TROUBLESHOOTING: Troubleshooting: Patient was using size 1 magnet for N6. Magnet size for the N7 processor was changed to Size 1/2. Corresponding color was not available in clinic stock. This was ordered from [employer] with direct shipment to Ms Lal's residence (RMA: [id number]). Demonstration was provided on volume and program adjustment using [employer]. Datalogging: N/a (new processor) RIGHT Programming: Headset pressure, magnet strength, and incision site were checked with no problems noted. Electrode impedances, used to monitor internal device function, were measured across the electrode array. Impedances were WNL across all active electrodes. MP1 remains open and had been previously deactivated with current use of MP2 coupling mode. Review of impedances obtained today with comparison to previous 4 visits and 60-day postactivation baseline did not identify any remarkable changes or atypical measurements. Patient's current N6 MAP (MAP 25) was transferred to N7 processor. Programming consisted of setting Comfort (C) levels at loud, but comfortable using a loudness scale. Several active electrodes were measured and the rest were interpolated. Following programming changes, patient reported excessive volume that was no longer comfortable and lack of distinct consonant clarity (specificially /s/). Dynamic range on basal end electrodes was reduced when compared to apical and mid electrodes. Comfort levels were increased by 3 CUs on electrodes 1-8. Comfort levels on all electrodes were increased by 2 CUs. All Comfort levels were then globally decreased by 1 CU while on-air. Patient reported comfortable volume and improved speech clarity with distinct consonant recognition. Right Ear Program/Map # Program Feature 1 28 SCAN (ADRO + ASC), SNR-NR,WNR 2 28 Everyday (ADRO+ASC), WNR 3 28 Music (Whisper+ADRO) Active controls include: volume and telecoil. Battery Life: Rechargeable: 27 hours Disposable: 53 hours SUMMARY AND RECOMMENDATIONS: Counseling Points: * Continue use of both devices during all waking hours. * Change microphone covers every 3 months. * Continue to monitor magnet/incision site for pain, redness, swelling, scabbing etc. Should any of these occur discontinue use of device immediately and contact the office. * Contact Mecca Win ([employer] cash applications representative) for device/accessory/technology assistance. * Contact the Clinic should any changes in hearing or concerns arise. Follow-up Programming: It was recommended that the patient return in one year for monitoring of auditory performance and potential programming needs. The center should be contacted if there are problems or concerns before that time. NOTE: It should be noted that the patient left the appointment with all the equipment. None of the patient's equipment was left in the Audiology Section of the Clinic. TOTAL TIME: 80 minutes Programming right: 40 minutes Programming left: 0 minutes Evaluation of auditory status: 35 minutes Bijan Barahona. Doctor of Audiology ([facility]) Interventional Radiology Rn Mecca Grover, PhD, VICKI, CCC/A documented in this encounter [facility] 07-20-2021 Note HNO ID: [id number] Author: Savi Gonzalez Service: ? Author Type: ? Type: Progress Notes Filed: 07/20/2021 9:37 AM Note Text: Head and Neck [place] HEARING AID DISPENSING Name: Ilsa Lal [facility]#: [id number] Date of Service: 07/20/2021 Date of : 1955 Age: [age] year old ? Right ear: External Processor: [employer] CP920 (Nucleus 6) ?Processor SN: [id number] ?Processor (CP810)?SN: [id number] ?Processor (CP810) SN: [id number] ?Magnet strength: 1 ? Internal Device: Cochlear Nucleus CI512 ?Internal Device SN: [id number] ?Inactive electrodes: None? ? Surgery Date: 05/20/2009 Initial activation date: 06/07/2009 Surgeon: Lionel Zuluaga M.D. LEFT: Stefan Slade 70 UP SN: [id number] Earmold/Tubin tubing, full shell acrylic mold Fitting Date: 06/30/2021 Repair Warranty Expiration Date: 07/12/2023 Loss/Damage Expiration Date: 07/12/2023 Fitting Crankshaft Straightener: Mecca Rivers, JUANITA Ilsa was seen today for the dispensing of the above devices within the Kpcsd-uc-Qzexma period. In addition, Ilsa Way Hali the following questions regarding the device: * How to disconnect from the phone ` * How to turn on airplane mode * How to change to T-coil program Demonstrated all changes that could be made with the phone and instructed on how to change programs. Ilsa effectively practiced these changes after demonstrations. Ilsa also reported that she would prefer the hearing aid be set louder and asked about the MPO settings, as she has noticed the hearing aid cutting out around loud bands. The devices were programmed accordingly to address the outcome measures and patient's comments. Increased the global tuning to 110% and the overall fine tuning by 3 clicks. She was satisfied with these changes and will return after her appointment with Dr. Bagley if these settings become too loud. The Hearing Aid Verification Orientation Checklist (HAVOC) was administered to verify Ilsa Lal ability to operate the devices. The following items were assessed: Removing the device from the RIGHT ear no difficulty Removing the device from the LEFT ear no difficulty Opening the battery door no difficulty Change the battery no difficulty Close the battery door no difficulty Change the dome/wax guards/slim tubing, if appropriate no difficulty Inserting device into the RIGHT ear no difficulty Inserting the device into the LEFT ear no difficulty Use with telephone (placement/program/streaming) no difficulty Use of accessories (microphones/streamers) no difficulty Ilsa Lal indicated that they were very satisfied with the devices today. Based on the above statements/comments/outcomes, it is recommended that the patient be discharged and return as needed. It is recommended that the patient have a annual Hearing Aid Check to clean/check and reprogram the devices, if needed. If change in hearing has been noted, it is recommended that the patient schedules a hearing test as well. Appointments within the first year are at no charge. Appointments following the first year are a fee for service appointment. It is recommended that a medical referral is obtain for any audiologic testing.. DON Salgado Doctor of Audiology Interventional Radiology Rn This appointment was conducted under the direct supervision of Mecca Rivers CCC-A. Mecca Rivers CCC-A Supervising Crankshaft Straightener [facility] 07-20-2021 History of Presen t illness Narrative Head and Neck [place] HEARING AID DISPENSING Name: Ilsa Lal [facility]#: [id number] Date of Service: 07/20/2021 Date of : 1955 Age: [age] year old Right ear: External Processor: [employer] CP920 (Nucleus 6) Processor SN: [id number] Processor (CP810) SN: [id number] Processor (CP810) SN: [id number] Magnet strength: 1 Internal Device: Cochlear Nucleus CI512 Internal Device SN: [id number] Inactive electrodes: None Surgery Date: 05/20/2009 Initial activation date: 06/07/2009 Surgeon: Lionel Zuluaga M.D. LEFT: Stefan Escobedoida P 70 UP SN: [id number] Earmold/Tubin tubing, full shell acrylic mold Fitting Date: 06/30/2021 Repair Warranty Expiration Date: 07/12/2023 Loss/Damage Expiration Date: 07/12/2023 Fitting Crankshaft Straightener: Mecca Rivers CCC-A Ilsa was seen today for the dispensing of the above devices within the Wbxkc-pe-Mqzpsp period. In addition, Ilsa Way Hali the following questions regarding the device: * How to disconnect from the phone ` * How to turn on airplane mode * How to change to T-coil program Demonstrated all changes that could be made with the phone and instructed on how to change programs. Ilsa effectively practiced these changes after demonstrations. Ilsa also reported that she would prefer the hearing aid be set louder and asked about the MPO settings, as she has noticed the hearing aid cutting out around loud bands. The devices were programmed accordingly to address the outcome measures and patient's comments. Increased the global tuning to 110% and the overall fine tuning by 3 clicks. She was satisfied with these changes and will return after her appointment with Dr. Bagley if these settings become too loud. The Hearing Aid Verification Orientation Checklist (HAVOC) was administered to verify Ilsascott Lal ability to operate the devices. The following items were assessed: Removing the device from the RIGHT ear no difficulty Removing the device from the LEFT ear no difficulty Opening the battery door no difficulty Change the battery no difficulty Close the battery door no difficulty Change the dome/wax guards/slim tubing, if appropriate no difficulty Inserting device into the RIGHT ear no difficulty Inserting the device into the LEFT ear no difficulty Use with telephone (placement/program/streaming) no difficulty Use of accessories (microphones/streamers) no difficulty Ilsa Lal indicated that they were very satisfied with the devices today. Based on the above statements/comments/outcomes, it is recommended that the patient be discharged and return as needed. It is recommended that the patient have a annual Hearing Aid Check to clean/check and reprogram the devices, if needed. If change in hearing has been noted, it is recommended that the patient schedules a hearing test as well. Appointments within the first year are at no charge. Appointments following the first year are a fee for service appointment. It is recommended that a medical referral is obtain for any audiologic testing.. DON Salgado Doctor of Audiology Interventional Radiology Rn This appointment was conducted under the direct supervision of Mecca Rivers CCC-A. Mecca Rivers CCC-A Supervising Crankshaft Straightener documented in this encounter [facility] 06-30-2021 Miscellaneous Notes EMAIL CORRESPONDENCE Ilsa Lal <[email or web address]> Ok, thank you so much for your time. I ll see you again on July 20! Savi Gonzalez Your new Phonak hearing aid, previous Phonak hearing aid, and the ReSound hearing aid you returned are all digital. Hearing aids have been digital since the late . Ilsa Lal [email or web address]> Is my new hearing aid a digital hearing aid or an analog hearing aid? Also, was my old hearing aid a digital or analog hearing aid (the Phonak)? documented in this encounter [facility] 06-30-2021 Note HNO ID: [id number] Author: Savi Gonzalez Service: ? Author Type: ? Type: Progress Notes Filed: 06/30/2021 1:47 PM Note Text: Head and Neck [place] HEARING AID FITTING Name: Ilsa Lla [facility]#: [id number] Date of Service: 06/30/2021 Date of : 1955 Age: [age] year old Right ear: External Processor: [employer] CP920 (Nucleus 6) ?Processor SN: [id number] ?Processor (CP810)?SN: [id number] ?Processor (CP810) SN: [id number] ?Magnet strength: 1 ? Internal Device: Cochlear Nucleus CI512 ?Internal Device SN: [id number] ?Inactive electrodes: None? ? Surgery Date: 05/20/2009 Initial activation date: 06/07/2009 Surgeon: Lionel Zuluaga M.D. FIT TODAY: LEFT: Phonak Ashley P 70 UP SN: [id number] Earmold/Tubin tubing, full shell acrylic mold Fitting Date: 06/30/2021 Repair Warranty Expiration Date: 07/12/2023 Loss/Damage Expiration Date: 07/12/2023 Fitting Crankshaft Straightener: Mecca Rivers CCC-Rayna RETURNED FOR CREDIT TODAY: ReSound Ramirez Q7 [id number]? SN: [id number]? Earmold/Tubing: custom earmold? Fitting Date:??05/15/2021 Repair Warranty Expiration Date:??05/19/2021 Loss/Damage Expiration Date:??05/19/2021 Fitting Crankshaft Straightener:?Mecca Rivers CCC/Rayna Ilsa Lal was seen today for an even exchange of recently dispensed GN Resound Ramirez Q7 (SN [id number]) for a Phonak Ashley P 70 UP (SN [id number]). The Phonak device was initially programmed With NAL-NL1 fitting formula at 100% prescribed gain; however, she did not like the sound quality with this fitting formula. Ultimately reverted back to Phonak's proprietary formula, which she has utilized for many years. Completed verification measures due to the high output of the device, but noted that although prescribed targets with Phonak proprietary formula and and NAL-NL2 formula are not identical, it was the closest match to perform verification. Note that the device was initially programmed to 110% prescribed gain per patient preference; verification measures indicated hearing aid set well above targets for soft, conversational, and loud speech. After counseling Mrs. Lal, was able to reduce amplification to 105% and run verification again. Device was still above target for soft, conversational, and loud speech, but closer in approximation than when set at 110%. The device was additional programmed with a manual public telecoil program, as well as manual volume control. Practice adjusting volume and changing programs with Mrs. Lal. Device is not paired to a cell phone or any other accessory. Note that left ear mold was modified today for comfort (helix curl portion of mold). Otoscopy was completed on the left external auditory canal and pinna without incident and was unremarkable. Device counseling was provided covering the following points: 1. battery replacement 2. device insertion and removal 3. changing program and volume control adjustment Patient counseling was provided addressing the following points: 1. use/wear time 2. realistic expectations and need to return for fine-tuning 3. communication strategies to optimize hearing aid performance The purchase agreement was completed along with the Hearing Aid Fitting Checklist. The original paperwork was given to Isla (copies were placed in the PHILIP file). The Hearing Aid Dispensing Appointment will be scheduled for 2-3 weeks. No charge: even exchange of hearing aid technology. Ilsa Lal left the appointment wearing ehr new Phonak Phonak Ashley P 70 UP; her GN ReSound Q7 [id number]?remained at the clinic for return to the gastrointestinal technician. Recommendations * Return for hearing aid dispensing appointment on 07/20/2021. * Return for cochlear implant consult on 08/07/2021. Lonny Rivers, [facility] Crankshaft Straightener [facility] 06-30-2021 History of Presen t illness Narrative Head and Neck [place] HEARING AID FITTING Name: Ilsa Lal [facility]#: [id number] Date of Service: 06/30/2021 Date of : 1955 Age: [age] year old Right ear: External Processor: [employer] CP920 (Nucleus 6) Processor SN: [id number] Processor (CP810) SN: [id number] Processor (CP810) SN: [id number] Magnet strength: 1 Internal Device: Cochlear Nucleus CI512 Internal Device SN: [id number] Inactive electrodes: None Surgery Date: 05/20/2009 Initial activation date: 06/07/2009 Surgeon: Lionel Zuluaga M.D. FIT TODAY: LEFT: Phonak Ashley P 70 UP SN: [id number] Earmold/Tubin tubing, full shell acrylic mold Fitting Date: 06/30/2021 Repair Warranty Expiration Date: 07/12/2023 Loss/Damage Expiration Date: 07/12/2023 Fitting Crankshaft Straightener: Mecca Rivers CCC-A RETURNED FOR CREDIT TODAY: ReSound Ramirez Q7 [id number] SN: [id number] Earmold/Tubing: custom earmold Fitting Date: 05/15/2021 Repair Warranty Expiration Date: 05/19/2021 Loss/Damage Expiration Date: 05/19/2021 Fitting Crankshaft Straightener: Mecca Rivers CCC/A Ilsa Lal was seen today for an even exchange of recently dispensed GN Resound Ramirez Q7 (SN [id number]) for a Phonak Ashley P 70 UP (SN [id number]). The Phonak device was initially programmed With NAL-NL1 fitting formula at 100% prescribed gain; however, she did not like the sound quality with this fitting formula. Ultimately reverted back to Phonak's proprietary formula, which she has utilized for many years. Completed verification measures due to the high output of the device, but noted that although prescribed targets with Phonak proprietary formula and and NAL-NL2 formula are not identical, it was the closest match to perform verification. Note that the device was initially programmed to 110% prescribed gain per patient preference; verification measures indicated hearing aid set well above targets for soft, conversational, and loud speech. After counseling Mrs. Lal, was able to reduce amplification to 105% and run verification again. Device was still above target for soft, conversational, and loud speech, but closer in approximation than when set at 110%. The device was additional programmed with a manual public telecoil program, as well as manual volume control. Practice adjusting volume and changing programs with Mrs. Lal. Device is not paired to a cell phone or any other accessory. Note that left ear mold was modified today for comfort (helix curl portion of mold). Otoscopy was completed on the left external auditory canal and pinna without incident and was unremarkable. Device counseling was provided covering the following points: 1. battery replacement 2. device insertion and removal 3. changing program and volume control adjustment Patient counseling was provided addressing the following points: 1. use/wear time 2. realistic expectations and need to return for fine-tuning 3. communication strategies to optimize hearing aid performance The purchase agreement was completed along with the Hearing Aid Fitting Checklist. The original paperwork was given to Ilsa (copies were placed in the PHILIP file). The Hearing Aid Dispensing Appointment will be scheduled for 2-3 weeks. No charge: even exchange of hearing aid technology. Ilsa Lal left the appointment wearing ehr new Phonak Phonak Ashley P 70 UP; her GN ReSound Q7 [id number] remained at the clinic for return to the gastrointestinal technician. Recommendations * Return for hearing aid dispensing appointment on 07/20/2021. * Return for cochlear implant consult on 08/07/2021. Lonny Rivers, [facility] Crankshaft Straightener documented in this encounter [facility] 06-19-2021 Miscellaneous Notes EMAIL CORRESPONDENCE Ilsa Lal <[email or web address]> Hi! Just so you know, it is my plan to continue to wear the new hearing aid (ReSound) until the appt. on June 30. I will not put on the old hearing aid that I had. This will give me the chance to see how the new hearing aid goes. What I can say is that sounds seem to be more prominent in my right ear (cochlear implant), whereas, when I had my old hearing aid, sounds had seemed to be prominent in my left ear (hearing aid side). Shall I assume that once everything is done in July, when I have the new CI upgrade appt. with Dr. Bagley, then all will be ok? Nabeel Lal <[email or web address]> Antonino (toro et al), you have a WONDERFUL memory!!! You really jogged my memory of where to find the old hearing aid! It is here. I am SO SORRY to put everyone into such a turmoil! Please, please, please accept my humble apology! And, forgive me. I should explain a little I have a health issue (not contagious) with my stomach. So I m feeling either queasy or in pain most of the time. I have had 2 tests for it and another one coming in August. It is being such a long wait when I don t feel good, plus trying to take care of my hearing too. Again, I m sorry. Thank you so much for putting up with me. I look forward to seeing you on June 30. Ilsa Mora, Antonino Rosenbaum, I hope you are doing well! Dr. Gonzalez informed me that you have not been able to locate your Phonak hearing aid. I checked and cannot find the Phonak hearing aid in the programming lab here. After every patient we make sure to wipe the room down and check for any belongings the patient may have left behind and at your last appointment on 06/06/21 when wiping the room down I did not see that you left any belongings. Furthermore, I did not see the Phonak hearing aid at your last appointment as we only worked on your current Resound hearing aid (turning the volume up and modifying the earmold). I do remember at the time of your fitting on 05/15/2021 we put your Phonak hearing aid in the case that came with your Resound hearing aid and into the black bag along with your fitting folder. We will continue to keep an eye out for your Phonak hearing aid! Please let me know if you find it! Best, Antonino Lal <[email or web address]> Toño KEARNEY! I have added Dr. Gonzalez to this email, so that she is aware that I am sending this email to you... On June 06, I met with Dr. Gonzalez and her understudy, Antonino, to get a new hearing aid. My old hearing aid (Phonak) was left behind in this office. I would like to have my old Phonak hearing aid back, as it would be good to have a back-up hearing aid, should something come up with the new hearing aid. Would you please assist in finding my old hearing aid? I'd appreciate it. --Ilsa From: Ilsa Lal [email or web address]> Sent: Sunday, June 13, 2021 7:27 AM To: Savi Gonzalez <[email or web address]> Subject: Re: [EXT] Were you Did the Resound hearing aid come in a case or bag? That may be where the Phonak hearing aid is? I was not given a case or bag for the ReSound. Ilsa Lla <[email or web address]> I would have to had taken my Phonak hearing aid out of my ear in order to put the new ReSound hearing aid on. Please ask Anotnino to help you find the hearing aid. Thank you. Sent from my iPhone documented in this encounter [facility] 06-12-2021 Miscellaneous Notes EMAIL CORRESPONDENCE Ilsa Lal <[email or web address]> Sat06/12/2021 9:17 AM Thank you for your efforts in this matter. See you on June 30! Savi Gonzalez 06/12/2021 7:38 AM Ilsa, Thank you for your emails over the weekend. I am sorry to hear that you are displeased with the performance of the ReSound hearing aid. I am in agreement with you that we should exchange the ReSound device for a current Phonak hearing aid. This will be an even exchange of devices. I will order the new Phonak device and we can program the new Phonak hearing aid for you during your upcoming appointment on 06/30. If I happen to have an appointment open up sooner, I will let you know. In regards to your old Phonak hearing aid, we do not have your device here is the office and I do not recall you bringing it with you to last your appointment on 06/06. I have no documentation to suggest the Phonak device was brought to our office that day. I will keep looking around but did not locate the device in our clinic. Savi Rosenbaum Tidioute <[email or web address]> 06/11/2021 12:34 PM I went to jain today. I m sorry, but I am very unhappy with the ReSound hearing aid. Please let s change it to Phonak! Ilsa Tidioute <[email or web address]> 06/10/2021 8:33 PM The reason I m asking this question is because I think I only hear half of what heard before, especially, in my left ear. Ilsa Hali <[email or web address]> 06/10/2021 8:10 PM Hi! So sorry to bother you again. Right now, it seems that my hearing is worse than before I got the ReSound hearing aid. Once I get the upgrade CI, will at that time I ll feel better about my hearing in BOTH ears? Ilsa Rosenbaum Tidioute <[email or web address]> 06/10/2021 7:22 AM Hi! I am starting to enjoy the new ReSound hearing aid. I look forward to tomorrow in using the T-coil in jain tomorrow. Please do not dispose of my old Phonak hearing aid that I left behind in your office. I like to keep a back-up hearing aid, in case something happens to the ReSound. Thank you and see you on June 30. Ilsa Perezdenise Lal <[employer]> [facility] 06/08/2021 9:33 PM This applies to the old one that I think I left it behind in your office(?) and a new one. Thank you. Ilsa Latta <[email or web address]> [facility] 06/08/2021 9:03 PM So sorry to bother you again. Did I leave my old hearing aid (Phonak) there at [facility]? I can t seem to find it. Ilsa Lal [email or web address]> Latisha 06/08/2021 8:40 PM It is my hope that I can return the Resound hearing aid back to you & get a refund? Or apply the money towards the Phonak hearing aid. Ilsa Lal <[email or web address]> [facility] 06/08/2021 8:29 PM Hi! I am sorry, but I am not happy with my new hearing aid. I think it is best that I go back to a Phonak hearing aid and have the power like I had from my old Phonak hearing aid. I m scheduled to see you on June 30. Or, should I come in sooner than that? Ilsa documented in this encounter [facility] 06-06-2021 Note HNO ID: [id number] Author: Savi Gonzalez Service: ? Author Type: ? Type: Progress Notes Filed: 06/06/2021 1:29 PM Note Text: Head and Neck [place] HEARING AID DISPENSING Name: Ilsa Lal [facility]#: [id number] Date of Service: 06/06/2021 Date of : 1955 Age: [age] year old Right ear: External Processor: [employer] CP920 (Nucleus 6) ?Processor SN: [id number] ?Processor (CP810)?SN: [id number] ?Processor (CP810) SN: [id number] ?Magnet strength: 1 ? Internal Device: Cochlear Nucleus CI512 ?Internal Device SN: [id number] ?Inactive electrodes: None? ? Surgery Date: 05/20/2009 Initial activation date: 06/07/2009 Surgeon: Lionel Zuluaga M.D. ? Left ear: ReSound Ramirez Q7 [id number] SN: [id number] Earmold/Tubing: custom earmold Fitting Date: 05/15/2021 Repair Warranty Expiration Date: 05/19/2021 Loss/Damage Expiration Date: 05/19/2021 Fitting Crankshaft Straightener: Mecca Rivers, LORA/Rayna ? Back-up devices: Phonak Bolero V90-SP; SN: [id number]; with 13 thick tubing,?full shell earmold, with pressure vent. Both devices were donated to the patient and were fit 08/19/17 at the Clinic. Phonak Ashley S III UP; SN: [id number]; Shell Earmolds. Fit at the Clinic and is being managed by us. ? ACCESSORIES Remote Control Remote Glass Breaker (Nucleus 5 and Nucleus 6) Mini Microphone 2+ ? Ilsa was seen today for the dispensing of the above devices within the Jpnjj-uh-Zzlchp period. In addition, Ilsa Way Hali stated the following regarding the devices: * She reported soreness caused by the helix curl of her ear mold * She requested that she be provided more volume/power through her hearing aid * Requested the addition of a manual telecoil program for use with the loop system in her jain * Requested confirmation that the volume control is enabled on her hearing aid * Requested support as to how best to use a land line phone * Requested to know the date and time of her next cochlear implant appointment The devices were programmed accordingly to address the outcome measures and patient's comments: * Shaved and buffed the helix portion of her left ear mold to achieve a more comfortable fit. Otoscopy was completed without incident and revealed clear canal. Visual inspection of the pinna was within normal limits; no abrasions or concerns noted. * Increased gain approximately four increments above prescription. Counseled realistic listening expectations for adjusting to new hearing aid brand and sound quality. * Manual telecoil program enabled. Ilsa was informed she now has manual restaurant and telecoil programs. Ensured program button enabled and practice use. * Practiced use of volume control on hearing aid. Additionally, demonstrated how she can use her phone to change volume or program settings by triple-clicking the home button on her phone to bring up her hearing aid settings. * Reviewed appropriate placement of land line phone over her hearing aid microphones. Use speaker phone when possible. * Informed Ilsa her next cochlear implant appointment is scheduled with Dr. Bagley on 07/17/2021. Based on the above statements/comments/outcomes, it is recommended that the patient return on 06/30/2021 for a scheduled hearing aid check to review fit/comfort of ear mold, make fine tuning adjustments to hearing aids as needed, and download Oticon ON harvinder if patient brings her Apple ID. DON Jones Doctor of Audiology Interventional Radiology Rn This appointment was conducted under the direct supervision of Mecca Rivers CCC-A. Mecca Rivers CCC-A Supervising Crankshaft Straightener [facility] 06-06-2021 History of Presen t illness Narrative [facility] [place] HEARING AID DISPENSING Name: Ilsa Lal [facility]#: [id number] Date of Service: 06/06/2021 Date of : 1955 Age: [age] year old Right ear: External Processor: Cochlear [email or web address] CP920 (Nucleus 6) Processor SN: [id number] Processor (CP810) SN: [id number] Processor (CP810) SN: [id number] Magnet strength: 1 Internal Device: Cochlear Nucleus CI512 Internal Device SN: [id number] Inactive electrodes: None Surgery Date: 05/20/2009 Initial activation date: 06/07/2009 Surgeon: Lionel Zuluaga M.D. Left ear: ReSound Ramirez Q7 [id number] SN: [id number] Earmold/Tubing: custom earmold Fitting Date: 05/15/2021 Repair Warranty Expiration Date: 05/19/2021 Loss/Damage Expiration Date: 05/19/2021 Fitting Crankshaft Straightener: Mecca Rivers CCC/Rayna Back-up devices: Phonak Bolero V90-SP; SN: [id number]; with 13 thick tubing, full shell earmold, with pressure vent. Both devices were donated to the patient and were fit 08/19/17 at the Clinic. Phonak Ashley S III UP; SN: [id number]; Shell Earmolds. Fit at the Clinic and is being managed by us. ACCESSORIES Remote Control Remote Glass Breaker (Nucleus 5 and Nucleus 6) Mini Microphone 2+ Ilsa was seen today for the dispensing of the above devices within the Hfdqo-kl-Vcsjma period. In addition, Ilsa Lal stated the following regarding the devices: * She reported soreness caused by the helix curl of her ear mold * She requested that she be provided more volume/power through her hearing aid * Requested the addition of a manual telecoil program for use with the loop system in her jain * Requested confirmation that the volume control is enabled on her hearing aid * Requested support as to how best to use a land line phone * Requested to know the date and time of her next cochlear implant appointment The devices were programmed accordingly to address the outcome measures and patient's comments: * Shaved and buffed the helix portion of her left ear mold to achieve a more comfortable fit. Otoscopy was completed without incident and revealed clear canal. Visual inspection of the pinna was within normal limits; no abrasions or concerns noted. * Increased gain approximately four increments above prescription. Counseled realistic listening expectations for adjusting to new hearing aid brand and sound quality. * Manual telecoil program enabled. Ilsa was informed she now has manual restaurant and telecoil programs. Ensured program button enabled and practice use. * Practiced use of volume control on hearing aid. Additionally, demonstrated how she can use her phone to change volume or program settings by triple-clicking the home button on her phone to bring up her hearing aid settings. * Reviewed appropriate placement of land line phone over her hearing aid microphones. Use speaker phone when possible. * Informed Ilsa her next cochlear implant appointment is scheduled with Dr. Bagley on 07/17/2021. Based on the above statements/comments/outcomes, it is recommended that the patient return on 06/30/2021 for a scheduled hearing aid check to review fit/comfort of ear mold, make fine tuning adjustments to hearing aids as needed, and download Oticon ON harvinder if patient brings her Apple ID. DON Jones Doctor of Audiology Interventional Radiology Rn This appointment was conducted under the direct supervision of Mecca Rivers CCC-A. Mecca Rivers CCC-A Supervising Crankshaft Straightener documented in this encounter [facility] 05-29-2021 Miscellaneous Notes EMAIL CORRESPONDENCE Savi Gonzalez 05/29/2021 7:30 AM Toño, Ilsa, Thank you for your email. I am sorry to hear about the discomfort with your earmold. You are scheduled to see me next Saturday, 06/06, at 11 am for a follow up appointment. I do not have any sooner appointments available. We will be able to address your concerns during the appointment next Saturday. Thank you, Savi Lal [email or web address] [place] 05/28/2021 7:24 AM Hi! The new earmold that was made for me needs to be filed down or something. It hurts my ear. Also, I think that Antonino mentioned an appointment in 3 weeks, which would be June 05. Can we schedule this appt. to take care of the earmold, plus anything else? Ilsa documented in this encounter [facility] 05-16-2021 Miscellaneous Notes EMAIL CORRESPONDENCE Savi Gonzalez [facility] 05/16/2021 1:52 PM Toño, Ilsa, Having the cell phone connected with the hearing aids will not interfere with your use of another phone. That being said, you can always disconnect your hearing aids from your cell phone by going into the settings on your phone and turning your Bluetooth off. Thank you, Savi Lal [email or web address] [facility] 05/16/2021 12:36 PM Hi! I appreciate my new hearing aid being connected to my cell phone! 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 Ilsa documented in this encounter [facility] 05-15-2021 Note HNO ID: [id number] Author: Savi Gonazlez Service: ? Author Type: ? Type: Progress Notes Filed: 05/15/2021 1:20 PM Note Text: [facility] [place] [place] HEARING AID FITTING Name: Ilsa Lal CCF#: [id number] Date of Service: 05/15/2021 Date of : 1955 Age: [age] year old Right ear: External Processor: Cochlear [employer] CP920 (Nucleus 6) ?Processor SN: [id number] ?Processor (CP810)?SN: [id number] ?Processor (CP810) SN: [id number] ?Magnet strength: 1 ? Internal Device: Cochlear Nucleus CI512 ?Internal Device SN: [id number] ?Inactive electrodes: None? ? Surgery Date: 05/20/2009 Initial activation date: 06/07/2009 Surgeon: Lionel Zuluaga M.D. ? Left ear: ReSound Ramirez Q7 [id number] SN: [id number] Earmold/Tubing: custom earmold Fitting Date: 05/15/2021 Repair Warranty Expiration Date: 05/19/2021 Loss/Damage Expiration Date: 05/19/2021 Fitting Crankshaft Straightener: Mecca Rivers CCC/Rayna Back-up devices: Phonak Bolero V90-SP; SN: [id number]; with 13 thick tubing,?full shell earmold, with pressure vent. Both devices were donated to the patient and were fit 08/19/17 at the Clinic. Phonak Ashley S III UP; SN: [id number]; Shell Earmolds. Fit at the Clinic and is being managed by us. ? ACCESSORIES Remote Control Remote Glass Breaker (Nucleus 5 and Nucleus 6) Mini Microphone 2+ Ilsa Lal was seen today for a hearing aid fitting of the above devices. The devices were programmed to meet the patient's initial needs: Sampled NAL-NL1, NAL-NL2, and DSL v5a fitting formulas. Ilsa reported best audibility achieved with NAL-NL1 linear. Note verification was originally completed with NAL-NL1 non-linear formula; as Brit preferred the linear formula, verification measures were completed again. Targets for soft (55 dB), conversational (65 dB), and loud (75 dB) speech were met via speech mapping; MPO was also completed. The hearing aid was paired with Ilsa's phone and a practiced phone call was made to demonstrate streaming. She will plan to bring her Apple ID with her to her next appointment so that the ReSound harvinder can be downloaded on the phone. Device counseling was provided covering the following points: 1. use of the rechargeable unit 2. device insertion and removal 3. changing domes/wax traps 4. connecting smart phone to devices Patient counseling was provided addressing the following points: 1. use/wear time 2. realistic expectations and need to return for fine-tuning 3. communication strategies to optimize hearing aid performance The purchase agreement was completed along with the Hearing Aid Fitting Checklist. The original paperwork was given to Ilsa (copies were placed in the PHILIP file). The Hearing Aid Dispensing Appointment will be scheduled for 2-3 weeks. Ilsa Lal was taken to financial counselors to pay for the devices in full. Total cost of the devices is $2,000.00 plus the $300.00 nonrefundable fitting fee. Recommendations * Return within the 30 day Vlefh-gr-Uxpgpj Period for the Hearing Aid Dispensing Appointment. * Contact your butter melter if you have any issues prior to your next appointment to address the issue in a timely manner. Call [phone] (press #4 and ask for the Audiology Manager Student Services) and request a call back . DON Jones Doctor of Audiology Interventional Radiology Rn Testing was obtained under the direct supervision of Mecca Rivers CCC/A I verify that I have reviewed the history, test results, and interpretation for this patient. Mecca Rivers CCC-A Supervising Crankshaft Straightener [facility] 05-15-2021 History of Presen t illness Narrative [facility] [place] [place] HEARING AID FITTING Name: Ilsa Lal CCF#: [id number] Date of Service: 05/15/2021 Date of : 1955 Age: [age] year old Right ear: External Processor: Cochlear [employer] CP920 (Nucleus 6) Processor SN: [id number] Processor (CP810) SN: [id number] Processor (CP810) SN: [id number] Magnet strength: 1 Internal Device: Cochlear Nucleus CI512 Internal Device SN: [id number] Inactive electrodes: None Surgery Date: 05/20/2009 Initial activation date: 06/07/2009 Surgeon: Lionel Zuluaga M.D. Left ear: ReSound Ramirez Q7 [id number] SN: [id number] Earmold/Tubing: custom earmold Fitting Date: 05/15/2021 Repair Warranty Expiration Date: 05/19/2021 Loss/Damage Expiration Date: 05/19/2021 Fitting Crankshaft Straightener: Mecca Rivers, LORA/A Back-up devices: Phonak Bolero V90-SP; SN: [id number]; with 13 thick tubing, full shell earmold, with pressure vent. Both devices were donated to the patient and were fit 08/19/17 at the Clinic. Phonak Ashley S III UP; SN: [id number]; Shell Earmolds. Fit at the Clinic and is being managed by us. ACCESSORIES Remote Control Remote Glass Breaker (Nucleus 5 and Nucleus 6) Mini Microphone 2+ Ilsa Lal was seen today for a hearing aid fitting of the above devices. The devices were programmed to meet the patient's initial needs: Sampled NAL-NL1, NAL-NL2, and DSL v5a fitting formulas. Ilsa reported best audibility achieved with NAL-NL1 linear. Note verification was originally completed with NAL-NL1 non-linear formula; as Brit preferred the linear formula, verification measures were completed again. Targets for soft (55 dB), conversational (65 dB), and loud (75 dB) speech were met via speech mapping; MPO was also completed. The hearing aid was paired with Ilsa's phone and a practiced phone call was made to demonstrate streaming. She will plan to bring her Apple ID with her to her next appointment so that the ReSound harvinder can be downloaded on the phone. Device counseling was provided covering the following points: 1. use of the rechargeable unit 2. device insertion and removal 3. changing domes/wax traps 4. connecting smart phone to devices Patient counseling was provided addressing the following points: 1. use/wear time 2. realistic expectations and need to return for fine-tuning 3. communication strategies to optimize hearing aid performance The purchase agreement was completed along with the Hearing Aid Fitting Checklist. The original paperwork was given to Ilsa (copies were placed in the PHILIP file). The Hearing Aid Dispensing Appointment will be scheduled for 2-3 weeks. Ilsa Lal was taken to financial counselors to pay for the devices in full. Total cost of the devices is $2,000.00 plus the $300.00 nonrefundable fitting fee. Recommendations * Return within the 30 day Ubwki-eo-Awmsty Period for the Hearing Aid Dispensing Appointment. * Contact your butter melter if you have any issues prior to your next appointment to address the issue in a timely manner. Call [phone] (press #4 and ask for the Audiology Manager Student Services) and request a call back . DON Jones Doctor of Audiology Interventional Radiology Rn Testing was obtained under the direct supervision of Mecca Rivers CCC/A I verify that I have reviewed the history, test results, and interpretation for this patient. Mecca Rivers CCC-A Supervising Crankshaft Straightener documented in this encounter [facility] 04-17-2021 Note HNO ID: [id number] Author: Savi Gonzalez Service: ? Author Type: ? Type: Progress Notes Filed: 04/17/2021 12:03 PM Note Text: HEARING NEEDS ASSESSMENT Name: Ilsa Lal CCF#: [id number] Date of Service: 04/17/2021 Date of : 1955 Age: [age] year old Right ear: External Processor: Cochlear [employer] CP920 (Nucleus 6) ?Processor SN: [id number] ?Processor (CP810)?SN: [id number] ?Processor (CP810) SN: [id number] ?Magnet strength: 1 ? Internal Device: Cochlear Nucleus CI512 ?Internal Device SN: [id number] ?Inactive electrodes: None? ? Surgery Date: 05/20/2009 Initial activation date: 06/07/2009 Surgeon: Lionel Zuluaga M.D. ? Left ear: Phonak Bolero V90-SP; SN: [id number]; with 13 thick tubing,?full shell earmold, with pressure vent. Both devices were donated to the patient and were fit 08/19/17 at the Clinic. Phonak Ashley S III UP; SN: [id number]; Shell Earmolds. Fit at the Clinic and is being managed by us. ? ACCESSORIES Remote Control Remote Glass Breaker (Nucleus 5 and Nucleus 6) Mini Microphone 2+ Ilsa Lal was seen today for a hearing needs assessment. Insurance benefit was verified and found that she does not have insurance coverage. Her current left Phonak Bolero V90 SP was cleaned and checked today. Changed tubing and cleaned ear mold. Cleaned microphone ports and battery compartments. Ran through dehumidifier. Listening check revealed excellent sound quality and audibility prior to and after device cleaning. Discussed possible BTE hearing aid options for the left ear. Recommended ReSound BTE technology due to compatibility with her current accessories and her implant processor. She wished to be fit with a full shell ear mold with helix gen similar to her current mold and was comfortable managing her size 13 battery. Based on a discussion about the various amplification options with the patient, including the style of hearing aid, the level of technology, and the use of binaural versus monaural devices, it was agreed that the patient would be fit with npikaj-gnn-kxx (BTE), Level 3 technology in the left ear only. An impression of the left ear was taken today to obtain a new custom ear mold for the left ear. Impression was taken without incident: canal was clear prior to and after impression procedure. It is also understood that maximum benefit will be achieved from the hearing aid with frequent use and proper fitting and programming. FINANCIAL COMPONENT It is understood that full payment will be required at the fitting appointment. NOTE: Payment at the time of the Hearing Aid Fitting includes the cost of the device, the fitting appointment as well as all follow-up appointments related to the hearing aids for ONE YEAR from the fitting date. All other appointments - non hearing aid related such as audiometric testing, ENT appointments, etc are NOT covered under the this payment. All future appointments past the ONE YEAR from fitting date will be a jit-lis-ypeoyqv. If there is an insurance benefit, the cost of the devices along with the fitting fee will be submitted to insurance. If it has been determined that there is a limit to the insurance coverage, Ilsa will be financially responsible at the time of the fitting for the balance over the insurance benefit limit. Ilsa was taken to the Financial Counselors to the front end ui developer appointment fee of $100. Recommendations: Return for the Hearing Aid Fitting with your butter melter, Mecca Rivers CCC/Rayna, on 05/15/2021. Device to be ordered: -GN ReSound Ramirez Q7 in color 6 for the left ear -One custom ear mold for the left ear([place]) DON Jones Doctor of Audiology (Mecca) Interventional Radiology Rn This appointment was conducted under the direct supervision of Mecca Rivers CCC-A. Mecca Rivers CCC-A Supervising Crankshaft Straightener [facility] 04-17-2021 Note HNO ID: [id number] Author: MECCA Graves Service: ? Author Type: Crankshaft Straightener Type: Progress Notes Filed: 04/17/2021 11:51 AM Note Text: [facility] [place] [place] AUDIOLOGIC EVALUATION REPORT Name: Ilsa Lal CC#: [id number] Date of Service: 04/17/2021 Date of : 1955 Age: [age] year old Referred by: SELF Referred for: Evaluation of suspected change in hearing, tinnitus, or balance. Referral documented: No referral on file Ilsa Lal was seen for a recheck audiologic evaluation followed by a hearing aid evaluation with Mecca Rivers. Recall that Ms. Lal has a long-standing history of bilateral sensorineural hearing loss and currently utilizes a Phonak [employer] V90-SP BTE hearing aid in her left ear (fit on 08/19/2017) and is s/p right cochlear implantation on 05/20/2009. Previous audiologic testing in the left ear was completed on 07/14/2019. Since that time, Ms. Lal reported that her hearing in the left ear has been stable. She reported some issues with the battery compartment on her left hearing aid which was making it difficult when closing the battery door; however, this issue has resolved. Otherwise, she denied otalgia (0/10), otorrhea, tinnitus, dizziness, and aural fullness. See SmartForm Audiogram for additional reported history and symptoms. INTERPRETATION OF HEARING STATUS RIGHT EAR: Known profound sensorineural hearing loss. LEFT EAR: Sensorineural hearing loss Comparison of today's results with previous test results (07/14/2019): Today's results suggest a slight decrease in the left ear TESTING, AND RESULTS Following is a brief interpretation of the obtained findings from the audiologic evaluation. Refer to the Auditory Test Record for complete audiometric results. The patient was counseled about the test findings and appropriate audiologic recommendations were made. SUMMARY: Audiogram can be viewed under Forms/Audiology/SmartForm. OUTER EAR: via otoscopic inspection RIGHT EAR: Otoscopic inspection revealed non-occluding cerumen; however, tympanic membrane could be visualized. LEFT EAR: Otoscopic inspection revealed ear canal was clear with an identifiable cone of light. MIDDLE EAR: via acoustic immittance testing RIGHT EAR Tympanometry: Did not test. LEFT EAR Tympanometry: Did not test. AUDITORY/FACIAL NERVE FUNCTION: via acoustic reflex testing RIGHT EAR PROBE EAR: (ipsi right stimulus ear; contralateral left stimulus ear): Acoustic Reflex Pattern Did not test Acoustic Reflex Decay (left stimulus ear): Did not test. LEFT EAR PROBE EAR: (ipsi left stimulus ear; contralateral right stimulus ear): Acoustic Reflex Pattern (Did not test Acoustic Reflex Decay (right stimulus ear):Did not test. HEARING ASSESSMENT: via pure tone and speech testing RIGHT EAR: Hearing Sensitivity: Did not test; Known profound SNHL s/p cochlear implantation Word Recognition Score: Did not test; Known profound SNHL s/p cochlear implantation LEFT EAR: Hearing Sensitivity: Severe to profound SNHL. No response obtained at the limits of the equipment at 8000 Hz. Word Recognition Score: Fair (70%). WRS is consistent with hearing sensitivity. Words were presented at 100 dB HL which is above intensity level for normal conversational speech. The NU-6 Order by Difficulty Word List (50 words) was used for testing. MANAGEMENT PLAN: * Proceed with hearing aid evaluation as scheduled today. * Continue consistent use of bimodal stimulation all waking hours. * Re-evaluation as medically indicated, or sooner, if a change in hearing is noted. I verify that I have reviewed the history, test results, and interpretation for this patient. Lonny Graves, LORA/Rayna Clinical Crankshaft Straightener BARRIENTOS Abbrev- iation Definition Degree of hearing sensitivity dB range WNL within normal limits WNL 0 - 20 SNHL sensorineural hearing loss Mild 20-40 CHL conductive hearing loss Moderate 40-55 MHL mixed hearing loss Moderately-Severe 55-70 WRS word recognition score Severe 70-90 ME middle ear Profound 90 + TM tympanic membrane [facility] documented as of this encounter (statuses as of 05/15/2021) [address]12-2009 History of Past illness Narrative* Problem Noted Date Resolved Date Screen for Osteoporosis 12/23/2008 12/24/19 documented as of this encounter (statuses as of 05/16/2021) [address]12-2009 History of Past illness Narrative* Problem Noted Date Resolved Date Screen for Osteoporosis 12/23/2008 12/24/19 09 documented as of this encounter (statuses as of 05/29/2021) [address]12[address]2009 History of Past illness Narrative* Problem Noted Date Resolved Date Screen for Osteoporosis 12/23/2008 12/24/19 09 documented as of this encounter (statuses as of 06/06/2021) [address]12[address]2009 History of Past illness Narrative* Problem Noted Date Resolved Date Screen for Osteoporosis 12/23/2008 12/24/19 09 documented as of this encounter (statuses as of 06/12/2021) [address]12-2009 History of Past illness Narrative* Problem Noted Date Resolved Date Screen for Osteoporosis 12/23/2008 12/24/19 09 documented as of this encounter (statuses as of 06/19/2021) [address]12-2009 History of Past illness Narrative* Problem Noted Date Resolved Date Screen for Osteoporosis 12/23/2008 12/24/19 09 documented as of this encounter (statuses as of 06/30/2021) [address]12-2009 History of Past illness Narrative* Problem Noted Date Resolved Date Screen for Osteoporosis 12/23/2008 12/24/19 documented as of this encounter (statuses as of 06/30/2021) [address]12-2009 History of Past illness Narrative* Problem Noted Date Resolved Date Screen for Osteoporosis 12/23/2008 12/24/19 documented as of this encounter (statuses as of 07/20/2021) [facility]11-12-2009 History of Past illness Narrative* Problem Noted Date Resolved Date Screen for Osteoporosis 12/23/2008 12/24/19 09 documented as of this encounter (statuses as of 08/25/2021) [facility]11-[facility]-2009 History of Past illness Narrative* Problem Noted Date Resolved Date Screen for Osteoporosis 12/23/2008 12/24/19 documented as of this encounter (statuses as of 02/15/2022) [facility] Sensorineural hearing loss, bilateral- Primary [facility] Diagnosis Sensorineural hearing loss, bilateral- Primary Cochlear implant follow-up Other specified aftercare following surgery [facility] Diagnosis Sensorineural hearing loss, bilateral- Primary [facility] Diagnosis Sensorineural hearing loss, bilateral- Primary Cochlear implant follow-up Other specified aftercare following surgery documented in this encounter [facility] Summary Purpose Family History No Family History Records Found Advance Directives No Advanced Directives Records Found Additional Source Comments Source Comments (unrecognize d section and content) In the event this informatio n is protected by the Federal Confidentiality of Alcohol and Drug Abuse Patient Records regulations: The Federal rules restrict any use of the information to criminally investigate or prosecute any alcohol or drug abuse patient.[facility] the event this information is protected by the Federal Confidentiality of Alcohol and Drug Abuse Patient Records regulations: The Federal rules restrict any use of the information to criminally investigate or prosecute any alcohol or drug abuse patient.[facility] the event this information is protected by the Federal Confidentiality of Alcohol and Drug Abuse Patient Records regulations: The Federal rules restrict any use of the information to criminally investigate or prosecute any alcohol or drug abuse patient.[facility] the event this information is protected by the Federal Confidentiality of Alcohol and Drug Abuse Patient Records regulations: The Federal rules restrict any use of the information to criminally investigate or prosecute any alcohol or drug abuse patient.[facility] the event this information is protected by the Federal Confidentiality of Alcohol and Drug Abuse Patient Records regulations: The Federal rules restrict any use of the information to criminally investigate or prosecute any alcohol or drug abuse patient.[facility] the event this information is protected by the Federal Confidentiality of Alcohol and Drug Abuse Patient Records regulations: The Federal rules restrict any use of the information to criminally investigate or prosecute any alcohol or drug abuse patient.[facility] the event this information is protected by the Federal Confidentiality of Alcohol and Drug Abuse Patient Records regulations: The Federal rules restrict any use of the information to criminally investigate or prosecute any alcohol or drug abuse patient.[facility] the event this information is protected by the Federal Confidentiality of Alcohol and Drug Abuse Patient Records regulations: The Federal rules restrict any use of the information to criminally investigate or prosecute any alcohol or drug abuse patient.[facility] the event this information is protected by the Federal Confidentiality of Alcohol and Drug Abuse Patient Records regulations: The Federal rules restrict any use of the information to criminally investigate or prosecute any alcohol or drug abuse patient.[facility] the event this information is protected by the Federal Confidentiality of Alcohol and Drug Abuse Patient Records regulations: The Federal rules restrict any use of the information to criminally investigate or prosecute any alcohol or drug abuse patient.[facility] the event this information is protected by the Federal Confidentiality of Alcohol and Drug Abuse Patient Records regulations: The Federal rules restrict any use of the information to criminally investigate or prosecute any alcohol or drug abuse patient.[facility] the event this information is protected by the Federal Confidentiality of Alcohol and Drug Abuse Patient Records regulations: The Federal rules restrict any use of the information to criminally investigate or prosecute any alcohol or drug abuse patient.[facility] Reason for Visit (unrecogniz ed section and content) Reason Comments Future Appointment Reason Comments Patient Request Reason Comments Cochlear Implant INFORMATION SOURCE (unrecogn ized section and content) FOR RECORDS PERTAINING TO PATIENTS WHO ARE OR HAVE BEEN ENROLLED IN A CHEMICAL DEPENDENCY/SUBSTANCEABUSE PROGRAM, SOME INFORMATION MAY BE OMITTED. This clinical summary was aggregated from multiple sources. Caution should be exercised in using it in the provision of clinical care. This summary normalizes information from multiple sources, and as a consequence, information in this document may materially change the coding, format and clinical context of patient data. In addition, data may be omitted in some cases. CLINICAL DECISIONS SHOULD BE BASED ON THE PRIMARY CLINICAL RECORDS. [facility]. provides no warranty or guarantee of the accuracy or completeness of information in this document.
[2023-02-28 08:51] LABS: Hematocrit 43.8 % (37-47); Hemoglobin 14.6 g/dL (12.0-15.0); Mean Corp Hgb Conc 33.3 g/dL (32-36); Mean Corpuscular Hgb 31.6 pg (27.0-32.0); Mean Corpuscular Volume 94.8 fL (81-99); Mean Platelet Vol. 9.3 fl (6.2-12.0); Platelet Count 272 K/mm3 (150-450); RBC Distribution Width CV 12.1 % (11.6-14.6); Red Blood Count 4.62 M/mm3 (4.2-5.4); White Blood Count 6.8 K/mm3 (4.4-11.0)
[2023-02-28 09:22] LABS: Vitamin B12 792 pg/mL (211-911)
[2023-02-28 10:03] LABS: ALB/GLOB Ratio 1.1 RATIO (0.9-2.4); AST(SGOT) 23 U/L (15-37); Alanine Aminotransfer ALT/SGPT 26 U/L (13-56); Albumin, Serum 3.8 g/dL (3.2-5.0); Alkaline Phosphatase 48 U/L (45-117); Anion Gap 2 (5-15); BUN 13 mg/dL (7-18); BUN/Creat Ratio 16.3 RATIO (10-20); Calcium,Total 9.7 mg/dL (8.5-10.1); Chloride 106 mmol/L (98-107); EST Glomerular Filtration Rate 76 mL/min (>60); Est Glom Filt Rate - Afr Amer 92 mL/min (>60); Globulin 3.4 g/dL (2.2-4.2); Glucose 125 mg/dL (74-106); Protein, Total 7.2 g/dL (6.4-8.2); Sodium Level 139 mmol/L (136-145); Thyroid Stim Hormone (TSH) 3.15 uIU/mL (0.358-3.74)
[2023-03-03 18:07] LABS: Vitamin B1, Thiamine 202.9 nmol/L (66.5-200.0)
== END | disposition home or self-care (01) ==
LOC: LAB 08:27
PROVIDERS: PCP Internal Medicine; Referring Provider Psychiatry & Neurology Neurology; Visit Provider Psychiatry & Neurology Neurology
DX: F03.90 Unspecified dementia, unspecified severity, without behavioral disturbance, psychotic disturbance, mood disturbance, and anxiety (principal)
CPT/HCPCS: 36415; 80053; 82607; 82746; 84425; 84443; 85027

== ENCOUNTER → 2023-03-01 | Outpatient (CLI) | payer MEDICARE, BC, SELFPAY ==
--- NOTE | 2023-03-01 14:36 | CT_ITS ---
INDICATION: dementia EXAMINATION: CT BRAIN - CT Head or Brain W/O Contrast Injection TECHNIQUE: Multiple axial images were obtained of the head without intravenous contrast. A radiation dose optimization technique was used for this scan. IV Contrast dosage and agent: None. RADIATION DOSAGE (If Supplied By Facility): CTDIvol = ( 44.99 ) mGy, DLP = ( 846.73 ) mGycm COMPARISON: No relevant prior comparison study available FINDINGS: BRAIN PARENCHYMA: No intra- or extra-axial hemorrhage. No evidence of acute infarct. No intracranial mass or mass effect. There is preservation of the valdes/white matter interface. Posterior fossa structures are unremarkable. Significant artifacts from what appears to be cochlear implant. CSF SPACES: Appropriate for age. No hydrocephalus. Basal cisterns are patent. CALVARIUM, SKULL BASE, PARANASAL SINUSES AND MASTOID AIR CELLS: Clear. Previous right mastoidectomy. ORBITS: Both globes, extraocular muscles, optic nerves and retrobulbar fat appear unremarkable. CT/Brain/Head without Contrast IMPRESSION: No acute intracranial process. Electronically Signed: Jose Dwyer MD at 15:38 EST ,
--- OUTSIDE RECORDS SUMMARY | 2023-03-01 14:39 | XMS RPT_ITS | CCD ---
Author Name Unknown Address [address] [place] [address] Organization [facility] Care Team Providers Care Welding Machine Operator Helper Gas Name Role Phone Unavailable Primary Care Provider SAVI Lantigua (AUD) Attending Unavailable SAVI GONZALEZ (AUD) Attending Unavailable MIGUEL SKY Attending Unavailable HUMBLE BAGLEY Attending Unavailable SAVI GONZALEZ (AUD) Attending Unavailable SAVI GONZALEZ (AUD) Attending Unavailable SAVI GONZALEZ (AUD) Attending Unavailable Unavailable Primary Care Provider Unavaileverette yepez Allergies Allergy Classification Reported Allergen(s) Allergy Type Date of Onset Reaction(s) Facility (13 sources) Cat; Translations: [CATS] Allergy to substance 5 Itching [facility] (13 sources) Codeine; Translations: [CODEINE] Drug Allergy 9 Vomiting [facility] (13 sources) Seasonal allergy; Translations: [SEASONAL ALLERGIES] Allergy to substance 9 Other: See Comments [facility] Work Phone: Medications Completed/Discontinued Medications Medication Drug [...] Author Start: 02-08-2023 LIPID SCREEN LIPID SCREEN [facility] Start: 04-18-2022 Colonoscopy COLONOSCOPY [facility] Start: 04-18-2022 COLORECTAL CANCER SCREENING COLORECTAL CANCER SCREENING [facility] Start: 02-11-2022 ADVANCE DIRECTIVE DISCUSSION ADVANCE DIRECTIVE DISCUSSION [facility] Start: 02-11-2022 DEPRESSION ASSESSMENT DEPRESSION ASSESSMENT [facility] Start: 10-12-2021 Influenza vaccination [facility] Start: 09-26-2021 EUSELIAS, Provider: Marychuy Cage, Status: Pen, Time: 11:40 AM SUSAN, Provider: Marychuy Cage, Status: Pen, Time: 11:40 AM [facility] 450 DO Work Phone: Start: 07-17-2021 DIABETES SCREEN DIABETES SCREEN [facility] Start: 02-11-2021 ADVANCE DIRECTIVE DISCUSSION ADVANCE DIRECTIVE DISCUSSION [facility] Start: 01-21-2021 BONE DENSITY BONE DENSITY [facility] Start: 01-21-2021 PNEUMOCOCCAL: 65+ (3 - PPSV23 if available, else PCV20) PNEUMOCOCCAL: 65+ (3 - PPSV23 if available, else PCV20) [facility] Start: 01-21-2021 PNEUMOCOCCAL: 65+ (3 - PPSV23 or PCV20) PNEUMOCOCCAL: 65+ (3 - PPSV23 or PCV20) [facility] Start: 01-21-2021 PNEUMOVAX AGE 65 AND OVER WITH 5YR LOOKBACK (#1) PNEUMOVAX AGE 65 AND OVER WITH 5YR LOOKBACK (#1) [facility] Start: 12-08-2020 Urine microalbumin profile DTAP,TDAP,TD (2 - Td or Tdap) [facility] Start: 04-03-2018 Mammography MAMMOGRAM [facility] Start: 02-22-2018 Adult depression screening assessment DEPRESSION SCREENING [facility] Start: 01-21-2006 SHINGRIX VACCINE (1 of 2) SHINGRIX VACCINE (1 of 2) [facility] Start: 01-21-2001 COLOGUARD (FIT-DNA) COLOGUARD (FIT-DNA) [facility] Start: 01-21-[address] COLONOGRAPHY [facility] Start: 01-21-2001 FECAL OCCULT BLOOD FECAL OCCULT BLOOD [facility] Start: 01-21-2001 SIGMOIDOSCOPY SIGMOIDOSCOPY [facility] Start: 01-21-1974 HEPATITIS C SCREENING HEPATITIS C SCREENING [facility] Start: 01-21-1974 HIV SCREENING HIV SCREENING [facility] Start: 01-21-1961 COVID-19 VACCINE (#1) COVID-19 VACCINE (#1) [facility] Start: 01-21-1961 COVID-19 VACCINE (1) COVID-19 VACCINE (1) [facility] Start: 1955 COVID-19 VACCINE (#1) COVID-19 VACCINE (#1) [facility] Immunizations Immunization Date Immunization Notes Care Provider Aakash kaba 12-26-2017 influenza, seasonal, injectable Savi Misael Work Phone: [facility] 12-02-2015 influenza, seasonal, injectable Savi Misael Work Phone: [facility] Work Phone: 12-08-2013 influenza, seasonal, injectable Savi Misael Work Phone: [facility] 06-18-2012 pneumococcal conjuga te vaccine, 13 valent Savi Misael Work Phone: [facility] 12-08-2010 tetanus toxoid, redu kellen diphtheria toxoid, and acellular pertussis vaccine, adsorbed Savi Misael Work Phone: [facility] 03-31-2009 pneumococcal polysaccharide vaccine, 23 valent Savi Misael Work Phone: [facility] Payers Date Payer Category Payer Medicare MEDICARE MEDICAR E A AND B [id number] 2021-Present [phone] [place] [address] Medicare [id number] 2021 Medicare [id number] 2021 Medicare [id number] 2021 Medicare MEDICARE MEDICAR E A AND B [id number] 2021-Present [phone] [place] [address] Medicare [id number] 2021 Unknown ANTHE[place]LE[place] [id number] 2021-Present [phone] [address] [place] [address] Indemnity [id number] 2012 Unknown Social History Date Type Detail Facility Start: 09-28-2014 Tobacco smoking stat [facility] Never smoked tobacco [facility] Work Phone: Start: 02-20-2018 Alcohol intake Current drinke r of alcohol (finding) [facility] Start: 12-14-2008 History SDOH Alcohol Comment a glass of wine with dinner maybe once a month [facility] Start: 1955 Sex Assigned At Female C [facility] Work Phone: Start: 05-05-2021 End: 08-07-2021 Exposure to SARS-CoV-2 (event) Not sure [facility] Start: 09-28-2014 Tobacco use and exposure Smokeless tobacco non-user [facility] Medical Equipment Procedure Code Equipment Code Equipment Origin al Text Equipment Identifier Dates Implant Sys Coch lear Cont Adv - [id number] Start: 05-20-2009 Clinical Notes 12-23-2008 to [...] 2026. Hope this helps. From: Ilsa Lal <[email or web address]> Sent: Saturday, February 12, 2022 6:22 PM To: Humble Bagley < > Subject: [EXT] Re: N6 or N7? I checked my papers and see that I have the N6. Is there an N7? I m just wondering why I don t have the N7? Thank you again, in advance, for your time.--Ilsa Sent from my iPhone > On Feb 12, 2022, at 5:24 PM, Ilsa Lal <[email or web address]> wrote: > > ?> ?Hi! Which of these do I currently have? The N6 or N7. I thought that this past Spring, I got the N > > Thank you, in advance, for your time.--Ilsa Lal > > Sent from my iPhone documented in this encounter [facility] 08-25-2021 Miscellaneous Notes EMAIL CORRESPONDENCE Ilsa Lal <[email or web address]> Thank you for this information. I think [...] be playing. Ilsa documented in this encounter [facility] 08-07-2021 Note HNO ID: [id number] Author: Mecca Grover, PhD Service: ? Author Type: Sheriffs Type: Progress Notes Filed: 08/24/2021 8:40 PM Note Text: [facility] Section of Allied Hearing, Speech and Balance Services COCHLEAR IMPLANT ADULT PROGRAMMING Name: Ilsa Way Hali CCF#: [id number] Date of Service: August 07, 2021 Date of : 1955 Age: [age] year old COCHLEAR IMPLANT INFORMATION (see below for all device details) RIGHT ear: External Processor: [employer]chle[employer] [id number] (Nucleus 7) External Processor [employer] CP 1000 (Nucleus 7) Processor SN [id number] Processor (CP810) SN [id number] Processor (CP810) SN [id number] Magnet Strength 1/2 Internal Device Cochlear Nucleus CI512 Internal Device SN [id number] Inactive electrodes None Surgery Date 05/20/2009 Initial activation date 06/07/2009 Surgeon Lionel Zuluaga MD Left ear:?ReSound Ramirez Q7 [id number]? SN: [id number]? Earmold/Tubing: custom earmold? Fitting Date:??05/15/2021 Repair Warranty Expiration Date:??05/19/2021 Loss/Damage Expiration Date:??05/19/2021 Fitting Sheriffs:?Mecca Rivers, LORA/A ? Back-up devices: Phonak Bolero V90-SP; SN: [id number]; with 13 thick tubing,?full shell earmold, with pressure vent. Both devices were donated to the patient and were fit 08/19/17 at the Clinic. Phonak Ashley S III UP; SN: [id number]; Shell Earmolds. Fit at the Clinic and is being managed by us. Accessories: Remote Control (CR310) SN: [id number] Remote Supervisor Long Goods (Nucleus 5 and Nucleus 6) Mini Microphone [...] Speech perception testing was completed at 60 care team coordinator scheduler using recorded stimuli in the sound field at 0 degrees azimuth. NOTE: The contralateral ear was not plugged and muffed or masked during testing. The following testing and results were obtained: Iajhhzqja-Uciheba-Nfigwozum Words (CNC) Test Condition List # Phonemes [...] in clinic stock. This was ordered from [employer] with direct shipment to Ms Lal's residence (RMA: [id number]). Demonstration was provided on volume and program adjustment using [employer] remote. Datalogging: N/a (new processor) RIGHT Programming: [...] and 60-day postact (more content not included)... [facility] 08-07-2021 History of Presen t illness Narrative [facility] Section of Allied Hearing, Speech and Balance Services COCHLEAR IMPLANT ADULT PROGRAMMING Name: Ilsa Lal CCF#: [id number] Date of Service: August 07, 2021 Date of : 1955 Age: [age] year old COCHLEAR IMPLANT INFORMATION (see below for all device details) RIGHT ear: External Processor: [employer] IV9860 (Nucleus 7) External Processor [employer] CP 1000 (Nucleus 7) Processor SN [id number] Processor (CP810) SN [id number] Processor (CP810) SN [id number] Magnet Strength 1/2 Internal Device Cochlear Nucleus CI512 Internal Device SN [id number] Inactive electrodes None Surgery Date 05/20/2009 Initial activation date 06/07/2009 Surgeon Lionel Zuluaga MD Left ear: ReSound Ramirez Q7 [id number] SN: [id number] Earmold/Tubing: custom earmold Fitting Date: 05/15/2021 Repair Warranty Expiration Date: 05/19/2021 Loss/Damage Expiration Date: 05/19/2021 Fitting Sheriffs: Mecca Rivers, CCC/A Back-up devices: Phonak Bolero V90-SP; SN: [id number]; with 13 thick tubing, full shell earmold, with pressure vent. Both devices were donated to the patient and were fit 08/19/17 at the Clinic. Phonak Ashley S III UP; SN: [id number]; Shell Earmolds. Fit at the Clinic and is being managed by us. Accessories: Remote Control (CR310) SN: [id number] Remote Supervisor Long Goods (Nucleus 5 and Nucleus 6) Mini Microphone [...] Speech perception testing was completed at 60 care team coordinator scheduler using recorded stimuli in the sound field at 0 degrees azimuth. NOTE: The contralateral ear was not plugged and muffed or masked during testing. The following testing and results were obtained: Tvcvccnaj-Gsthmhg-Evnzfejbb Words (CNC) Test Condition List # Phonemes [...] direct shipment to Ms Lal's residence (RMA: [id number]). Demonstration was provided on volume and program adjustment using [employer]. Datalogging: N/a (new processor) RIGHT Programming: Headset [...] office. * Contact Mecca Win ([employer] national account representative) for device/accessory/technology assistance. * Contact the [...] minutes Bijan Barahona. Doctor of Audiology (Mecca) Belt Back Operator Mecca Grover, PhD, VICKI, CCC/A documented in this encounter [facility] 07-20-2021 Note HNO ID: [id number] Author: Savi Gonzalez Service: ? Author Type: ? Type: Progress Notes Filed: 07/20/2021 9:37 AM Note Text: [facility] HEARING AID DISPENSING Name: Ilsa Lal [facility]#: [id number] Date of Service: 07/20/2021 Date of : 1955 Age: [age] year old ? Right ear: External Processor: [employer] CP920 (Nucleus 6) ?Processor SN: [id number] ?Processor (CP810)?SN: [id number] ?Processor (CP810) SN: [id number] ?Magnet strength: 1 ? Internal Device: Cochlear Nucleus CI512 ?Internal Device SN: [id number] ?Inactive electrodes: None? ? Surgery Date: 05/20/2009 Initial activation date: 06/07/2009 Surgeon: Lionel Zuluaga M.D. LEFT: Stefan Slade 70 UP SN: [id number] Earmold/Tubin tubing, full shell acrylic mold Fitting Date: 06/30/2021 Repair Warranty Expiration Date: 07/12/2023 Loss/Damage Expiration Date: 07/12/2023 Fitting Sheriffs: Mecca Rivers, JUANITA Ilsa was seen today for the dispensing of the above devices within the Pklqt-ak-Zvkypl period. In addition, Ilsa Way Hali the [...] audiologic testing.. DON Salgado Doctor of Audiology Belt Back Operator This appointment was conducted under the direct supervision of Mecca Rivers CCC-A. Mecca Rivers CCC-A Supervising Sheriffs [facility] 07-20-2021 History of Presen t illness Narrative [facility] HEARING AID DISPENSING Name: Ilsa Lal [facility]#: [id number] Date of Service: 07/20/2021 Date of : 1955 Age: [age] year old Right ear: External Processor: [employer] CP920 (Nucleus 6) Processor SN: [id number] Processor (CP810) SN: [id number] Processor (CP810) SN: [id number] Magnet strength: 1 Internal Device: Cochlear Nucleus CI512 Internal Device SN: [id number] Inactive electrodes: None Surgery Date: 05/20/2009 Initial activation date: 06/07/2009 Surgeon: Lionel Zuluaga M.D. LEFT: Stefan Escobedoida P 70 UP SN: [id number] Earmold/Tubin tubing, full shell acrylic mold Fitting Date: 06/30/2021 Repair Warranty Expiration Date: 07/12/2023 Loss/Damage Expiration Date: 07/12/2023 Fitting Sheriffs: Mecca Rivers CCC-A Ilsa was seen today for the dispensing of the above devices within the Ktkyr-dn-Jbalwe period. In addition, Ilsa Way Hali the following questions regarding the device: * How to disconnect from the phone ` * How to turn on airplane mode * How to change to T-coil program Demonstrated all changes that could be made with the phone and instructed on how to change programs. Ilas effectively practiced these changes after demonstrations. Ilsa [...] audiologic testing.. DON Salgado Doctor of Audiology Belt Back Operator This appointment was conducted under the direct supervision of Mecca Rivers CCC-A. Mecca Rivers CCC-A Supervising Sheriffs documented in this encounter [facility] 06-30-2021 Miscellaneous Notes EMAIL CORRESPONDENCE Ilsa Lal [email or web address]> Ok, thank you so much for your time. I ll see you again on July 20! Savi Gonzalez Your new Phonak hearing aid, previous Phonak hearing aid, and the ReSound hearing aid you returned are all digital. Hearing aids have been digital since the late . Ilsa Lal [email or web address]> Is my new hearing aid a digital hearing aid or an analog hearing aid? Also, was my old hearing aid a digital or analog hearing aid (the Phonak)? documented in this encounter [facility] 06-30-2021 Note HNO ID: [id number] Author: Savi Gonzalez Service: ? Author Type: ? Type: Progress Notes Filed: 06/30/2021 1:47 PM Note Text: [facility] HEARING AID FITTING Name: Ilsa Lal [facility]#: [id number] Date of Service: 06/30/2021 Date of : 1955 Age: [age] year old Right ear: External Processor: Cochle[employer] CP920 (Nucleus 6) ?Processor SN: [id number] ?Processor (CP810)?SN: [id number] ?Processor (CP810) SN: [id number] ?Magnet strength: 1 ? Internal Device: Cochlear Nucleus CI512 ?Internal Device SN: [id number] ?Inactive electrodes: None? ? Surgery Date: 05/20/2009 Initial activation date: 06/07/2009 Surgeon: Lionel Zuluaga M.D. FIT TODAY: LEFT: Phonak Ashley P 70 UP SN: [id number] Earmold/Tubin tubing, full shell acrylic mold Fitting Date: 06/30/2021 Repair Warranty Expiration Date: 07/12/2023 Loss/Damage Expiration Date: 07/12/2023 Fitting Sheriffs: Mecca Rivers CCC-Rayna RETURNED FOR CREDIT TODAY: ReSound Ramirez Q7 [id number]? SN: [id number]? Earmold/Tubing: custom earmold? Fitting Date:??05/15/2021 Repair Warranty Expiration Date:??05/19/2021 Loss/Damage Expiration Date:??05/19/2021 Fitting Sheriffs:?Mecca Rivers CCC/Rayna Ilsa Lal was seen today for an even exchange of recently dispensed GN Resound Ramirez Q7 (SN [id number]) for a Phonak Ashley P 70 UP (SN [id number]). The Phonak device was initially programmed With [...] P 70 UP; her GN ReSound Q7 [id number]?remained at the clinic for return to the mounting machine operator. Recommendations * Return for hearing aid dispensing appointment on 07/20/2021. * Return for cochlear implant consult on 08/07/2021. Lonny Rivers, [facility] Sheriffs [facility] 06-30-2021 History of Presen t illness Narrative [facility] HEARING AID FITTING Name: Ilsa Lal [facility]#: [id number] Date of Service: 06/30/2021 Date of : 1955 Age: [age] year old Right ear: External Processor: Cochle[employer] CP920 (Nucleus 6) Processor SN: [id number] Processor (CP810) SN: [id number] Processor (CP810) SN: [id number] Magnet strength: 1 Internal Device: Cochlear Nucleus CI512 Internal Device SN: [id number] Inactive electrodes: None Surgery Date: 05/20/2009 Initial activation date: 06/07/2009 Surgeon: Lionel Zuluaga M.D. FIT TODAY: LEFT: Phonak Ashley P 70 UP SN: [id number] Earmold/Tubin tubing, full shell acrylic mold Fitting Date: 06/30/2021 Repair Warranty Expiration Date: 07/12/2023 Loss/Damage Expiration Date: 07/12/2023 Fitting Sheriffs: Mecca Rivers CCC-A RETURNED FOR CREDIT TODAY: ReSound Ramirez Q7 [id number] SN: [id number] Earmold/Tubing: custom earmold Fitting Date: 05/15/2021 Repair Warranty Expiration Date: 05/19/2021 Loss/Damage Expiration Date: 05/19/2021 Fitting Sheriffs: Mecca Rivers CCC/A Ilsa Lal was seen today for an even exchange of recently dispensed GN Resound Ramirez Q7 (SN [id number]) for a Phonak Ashley P 70 UP (SN [id number]). The Phonak device was initially programmed With [...] P 70 UP; her GN ReSound Q7 [id number] remained at the clinic for return to the mounting machine operator. Recommendations * Return for hearing aid dispensing appointment on 07/20/2021. * Return for cochlear implant consult on 08/07/2021. Lonny Rivers, [facility] Sheriffs documented in this encounter [facility] 06-19-2021 Miscellaneous Notes EMAIL CORRESPONDENCE Ilsa Lal [email or web address]> Hi! Just so you know, it is [...] then all will be ok? Nabeel Lal [email or web address]> Antonino (toro et al), you have a [...] if you find it! Best, Antonino Lal [email or web address]> Toño KEARNEY! I have added Dr. Gonzalez [...] I'd appreciate it. --Ilsa From: Ilsa Lal [email or web address]> Sent: Sunday, June 13, 2021 7:27 AM To: Savi Gonzalez < > Subject: Re: [EXT] Were you Did the Resound hearing aid come in a case or bag? That may be where the Phonak hearing aid is? I was not given a case or bag for the ReSound. Ilsa Lal [email or web address]> I would have to had taken my Phonak hearing aid out of my ear in order to put the new ReSound hearing aid on. Please ask Antonino to help you find the hearing aid. Thank you. Sent from my iPhone documented in this encounter [facility] 06-12-2021 Miscellaneous Notes EMAIL CORRESPONDENCE Ilsa Lal [email or web address]> Sat06/12/2021 9:17 AM Thank you for your [...] the device in our clinic. Savi Rosenbaum Poplar [email or web address]> 06/11/2021 12:34 PM I went to latter day today. I m sorry, but I am very unhappy with the ReSound hearing aid. Please let s change it to Phonak! Ilsa Poplar <[email or web address]> 06/10/2021 8:33 PM The reason I m asking this question is because I think I only hear half of what heard before, especially, in my left ear. Ilsa Hali <[email or web address]> 06/10/2021 8:10 PM Hi! So sorry to bother you again. Right now, it seems that my hearing is worse than before I got the ReSound hearing aid. Once I get the upgrade CI, will at that time I ll feel better about my hearing in BOTH ears? Ilsa Rosenbaum Poplar <[email or web address]> 06/10/2021 7:22 AM Hi! I am starting to enjoy the new ReSound hearing aid. I look forward to tomorrow in using the T-coil in latter day tomorrow. Please do not dispose of my old Phonak hearing aid that I left behind in your office. I like to keep a back-up hearing aid, in case something happens to the ReSound. Thank you and see you on June 30. Ilsa Perezdenise Lal <[email or web address]> [facility] 06/08/2021 9:33 PM This applies to the old one that I think I left it behind in your office(?) and a new one. Thank you. Ilsa Latta <[email or web address]> [facility] 06/08/2021 9:03 PM So sorry to bother you again. Did I leave my old hearing aid (Phonak) there at [facility]? I can t seem to find it. Ilsa Lal [email or web address]> Latisha 06/08/2021 8:40 PM It is my hope that I can return the Resound hearing aid back to you & get a refund? Or apply the money towards the Phonak hearing aid. Ilsa Lal [email or web address]> [facility] 06/08/2021 8:29 PM Hi! I am sorry, [...] than that? Ilsa documented in this encounter [facility] 06-06-2021 Note HNO ID: [id number] Author: Savi Gonzalez Service: ? Author Type: ? Type: Progress Notes Filed: 06/06/2021 1:29 PM Note Text: Head [facility]ck [facility] HEARING AID DISPENSING Name: Ilsa Lal [facility]#: [id number] Date of Service: 06/06/2021 Date of : 1955 Age: [age] year old Right ear: External Processor: [employer]chle[employer] CP920 (Nucleus 6) ?Processor SN: [id number] ?Processor (CP810)?SN: [id number] ?Processor (CP810) SN: [id number] ?Magnet strength: 1 ? Internal Device: Cochlear Nucleus CI512 ?Internal Device SN: [id number] ?Inactive electrodes: None? ? Surgery Date: 05/20/2009 Initial activation date: 06/07/2009 Surgeon: Lionel Zuluaga M.D. ? Left ear: ReSound Ramirez Q7 [id number] SN: [id number] Earmold/Tubing: custom earmold Fitting Date: 05/15/2021 Repair Warranty Expiration Date: 05/19/2021 Loss/Damage Expiration Date: 05/19/2021 Fitting Sheriffs: Mecca Rivers, LORA/Rayna ? Back-up devices: Phonak Bolero V90-SP; SN: [id number]; with 13 thick tubing,?full shell earmold, with pressure vent. Both devices were donated to the patient and were fit 08/19/17 at the Clinic. Phonak Ashley S III UP; SN: [id number]; Shell Earmolds. Fit at the Clinic and is being managed by us. ? ACCESSORIES Remote Control Remote Supervisor Long Goods (Nucleus 5 and Nucleus 6) Mini Microphone 2+ ? Ilsa was seen today for the dispensing of the above devices within the Wcbjo-ak-Tbfvwx period. In addition, Ilsa Way Hali stated the following regarding the devices: * She reported soreness caused by the helix curl of her ear mold * She requested that she be provided more volume/power through her hearing aid * Requested the addition of a manual telecoil program for use with the loop system in her latter day * Requested confirmation that the volume control [...] Apple ID. DON Jones Doctor of Audiology Belt Back Operator This appointment was conducted under the direct supervision of Mecca Rivers CCC-A. Mecca Rivers CCC-A Supervising Sheriffs [facility] 06-06-2021 History of Presen t illness Narrative [facility] HEARING AID DISPENSING Name: Ilsa Lal [facility]#: [id number] Date of Service: 06/06/2021 Date of : 1955 Age: [age] year old Right ear: External Processor: Cochlear [place] CP920 (Nucleus 6) Processor SN: [id number] Processor (CP810) SN: [id number] Processor (CP810) SN: [id number] Magnet strength: 1 Internal Device: Cochlear Nucleus CI512 Internal Device SN: [id number] Inactive electrodes: None Surgery Date: 05/20/2009 Initial activation date: 06/07/2009 Surgeon: Lionel Zuluaga M.D. Left ear: ReSound Ramirez Q7 [id number] SN: [id number] Earmold/Tubing: custom earmold Fitting Date: 05/15/2021 Repair Warranty Expiration Date: 05/19/2021 Loss/Damage Expiration Date: 05/19/2021 Fitting Sheriffs: Mecca Rivers CCC/Rayna Back-up devices: Phonak Bolero V90-SP; SN: [id number]; with 13 thick tubing, full shell earmold, with pressure vent. Both devices were donated to the patient and were fit 08/19/17 at the Clinic. Phonak Ashley S III UP; SN: [id number]; Shell Earmolds. Fit at the Clinic and is being managed by us. ACCESSORIES Remote Control Remote Supervisor Long Goods (Nucleus 5 and Nucleus 6) Mini Microphone 2+ Ilsa was seen today for the dispensing of the above devices within the Nhkix-hv-Ktnigd period. In addition, Ilsa Lal stated the following regarding the devices: * She reported soreness caused by the helix curl of her ear mold * She requested that she be provided more volume/power through her hearing aid * Requested the addition of a manual telecoil program for use with the loop system in her latter day * Requested confirmation that the volume control [...] Apple ID. DON Jones Doctor of Audiology Belt Back Operator This appointment was conducted under the direct supervision of Mecca Rivers CCC-A. Mecca Rivers CCC-A Supervising Sheriffs documented in this encounter [facility] 05-29-2021 Miscellaneous Notes EMAIL CORRESPONDENCE Savi Gonzalez [...] appointment next Saturday. Thank you, Savi Lal [email or web address]> [place] 05/28/2021 7:24 AM Hi! The new earmold that was made for me needs to be filed down or something. It hurts my ear. Also, I think that Antonino mentioned an appointment in 3 weeks, which would be June 05. Can we schedule this appt. to take care of the earmold, plus anything else? Isla documented in this encounter [facility] 05-16-2021 Miscellaneous Notes EMAIL CORRESPONDENCE Savi Gonzalez [facility] 05/16/2021 1:52 PM Toño, Ilsa, Having the cell phone connected with the hearing aids will not interfere with your use of another phone. That being said, you can always disconnect your hearing aids from your cell phone by going into the settings on your phone and turning your Bluetooth off. Thank you, Savi Lal [email or web address]> [facility] 05/16/2021 12:36 PM Hi! I appreciate my new hearing aid being connected to my cell phone! 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 Ilsa documented in this encounter [facility] 05-15-2021 Note HNO ID: [id number] Author: Savi Gonzalez Service: ? Author Type: ? Type: Progress Notes Filed: 05/15/2021 1:20 PM Note Text: Head and Neck Edison HEARING AID FITTING Name: Ilsa Lal [facility]CF#: [id number] Date of Service: 05/15/2021 Date of : 1955 Age: [age] year old Right ear: External Processor: Cochlear [employer] CP920 (Nucleus 6) ?Processor SN: [id number] ?Processor (CP810)?SN: [id number] ?Processor (CP810) SN: [id number] ?Magnet strength: 1 ? Internal Device: Cochlear Nucleus CI512 ?Internal Device SN: [id number] ?Inactive electrodes: None? ? Surgery Date: 05/20/2009 Initial activation date: 06/07/2009 Surgeon: Lionel Zuluaga M.D. ? Left ear: ReSound Ramirez Q7 [id number] SN: [id number] Earmold/Tubing: custom earmold Fitting Date: 05/15/2021 Repair Warranty Expiration Date: 05/19/2021 Loss/Damage Expiration Date: 05/19/2021 Fitting Sheriffs: Mecca Rivers CCC/Rayna Back-up devices: Phonak Bolero V90-SP; SN: [id number]; with 13 thick tubing,?full shell earmold, with pressure vent. Both devices were donated to the patient and were fit 08/19/17 at the Clinic. Phonak Ashley S III UP; SN: [id number]; Shell Earmolds. Fit at the Clinic and is being managed by us. ? ACCESSORIES Remote Control Remote Supervisor Long Goods (Nucleus 5 and Nucleus 6) Mini Microphone [...] Recommendations * Return within the 30 day Sijuo-dm-Dkfivh Period for the Hearing Aid Dispensing Appointment. * Contact your cis coordinator if you have any issues prior to your next appointment to address the issue in a timely manner. Call [phone] (press #4 and ask for the Audiology Customer Assistance Associate) and request a call back . DON Jones Doctor of Audiology Belt Back Operator Testing was obtained under the direct supervision of Mecca Rivers CCC/A I verify that I have reviewed the history, test results, and interpretation for this patient. Mecca Rivers CCC-A Supervising Sheriffs [facility] 05-15-2021 History of Presen t illness Narrative Head and Neck Edison HEARING AID FITTING Name: Ilsa Lal CCF#: [id number] Date of Service: 05/15/2021 Date of : 1955 Age: [age] year old Right ear: External Processor: Cochlear [employer] CP920 (Nucleus 6) Processor SN: [id number] Processor (CP810) SN: [id number] Processor (CP810) SN: [id number] Magnet strength: 1 Internal Device: Cochlear Nucleus CI512 Internal Device SN: [id number] Inactive electrodes: None Surgery Date: 05/20/2009 Initial activation date: 06/07/2009 Surgeon: Lionel Zuluaga M.D. Left ear: ReSound Ramirez Q7 [id number] SN: [id number] Earmold/Tubing: custom earmold Fitting Date: 05/15/2021 Repair Warranty Expiration Date: 05/19/2021 Loss/Damage Expiration Date: 05/19/2021 Fitting Sheriffs: Mecca Rivers, LORA/A Back-up devices: Phonak Bolero V90-SP; SN: [id number]; with 13 thick tubing, full shell earmold, with pressure vent. Both devices were donated to the patient and were fit 08/19/17 at the Clinic. Phonak Ashley S III UP; SN: [id number]; Shell Earmolds. Fit at the Clinic and is being managed by us. ACCESSORIES Remote Control Remote Supervisor Long Goods (Nucleus 5 and Nucleus 6) Mini Microphone [...] Recommendations * Return within the 30 day Izirx-us-Abptmh Period for the Hearing Aid Dispensing Appointment. * Contact your cis coordinator if you have any issues prior to your next appointment to address the issue in a timely manner. Call [phone] (press #[phone] and ask for the Audiology Customer Assistance Associate) and request a call back . DON Jones Doctor of Audiology Belt Back Operator Testing was obtained under the direct supervision of Mecca Rivers CCC/A I verify that I have reviewed the history, test results, and interpretation for this patient. Mecca Rivers CCC-A Supervising Sheriffs documented in this encounter [facility] 04-17-2021 Note HNO ID: [id number] Author: Savi Gonzalez Service: ? Author Type: ? Type: Progress Notes Filed: 04/17/2021 12:03 PM Note Text: HEARING NEEDS ASSESSMENT Name: Ilsa Lal CCF#: [id number] Date of Service: 04/17/2021 Date of : 1955 Age: [age] year old Right ear: External Processor: Cochlear [employer] CP920 (Nucleus 6) ?Processor SN: [id number] ?Processor (CP810)?SN: [id number] ?Processor (CP810) SN: [id number] ?Magnet strength: 1 ? Internal Device: Cochlear Nucleus CI512 ?Internal Device SN: [id number] ?Inactive electrodes: None? ? Surgery Date: 05/20/2009 Initial activation date: 06/07/2009 Surgeon: Lionel Zuluaga M.D. ? Left ear: Phonak Bolero V90-SP; SN: [id number]; with 13 thick tubing,?full shell earmold, with pressure vent. Both devices were donated to the patient and were fit 08/19/17 at the Clinic. Phonak Ashley S III UP; SN: [id number]; Shell Earmolds. Fit at the Clinic and is being managed by us. ? ACCESSORIES Remote Control Remote Supervisor Long Goods (Nucleus 5 and Nucleus 6) Mini Microphone [...] that the patient would be fit with xvymkp-kwo-vzx (BTE), Level 3 technology in the left [...] YEAR from fitting date will be a szh-mlg-vpcmuzj. If there is an insurance benefit, the [...] to the Financial Counselors to the front office supervisor appointment fee of $100. Recommendations: Return for the Hearing Aid Fitting with your cis coordinator, Mecca Rivers CCC/Rayna, on 05/15/2021. Device to be ordered: -GN ReSound Ramirez Q7 in color 6 for the left ear -One custom ear mold for the left ear([place]) DON Jones Doctor of Audiology (Mecca) Belt Back Operator This appointment was conducted under the direct supervision of Mecca Rivers CCC-A. Mecca Rivers CCC-A Supervising Sheriffs [facility] 04-17-2021 Note HNO ID: [id number] Author: MECCA Graves Service: ? Author Type: Sheriffs Type: Progress Notes Filed: 04/17/2021 11:51 AM Note Text: Head and Neck Edison AUDIOLOGIC EVALUATION REPORT Name: Ilsa Lal CC#: [id number] Date of Service: 04/17/2021 Date of : [...] hearing loss and currently utilizes a Phonak imojiero V90-SP BTE hearing aid in her left [...] for this patient. Lonny Graves, LORA/Rayna Clinical Sheriffs BARRIENTOS Abbrev- iation Definition Degree of hearing sensitivity dB range WNL within normal limits WNL 0 - 20 SNHL sensorineural hearing loss Mild 20-40 CHL conductive hearing loss Moderate 40-55 MHL mixed hearing loss Moderately-Severe 55-70 WRS word recognition score Severe 70-90 ME middle ear Profound 90 + TM tympanic membrane [facility] documented as of this encounter (statuses as of 05/15/2021) [address]12-2009 History of Past illness Narrative* Problem Noted Date Resolved Date Screen for Osteoporosis 12/23/2008 12/24/19 documented as of this encounter (statuses as of 05/16/2021) [address]-2009 History of Past illness Narrative* Problem Noted Date Resolved Date Screen for Osteoporosis 12/23/2008 12/24/19 09 documented as of this encounter (statuses as of 05/29/2021) [address]12-2009 History of Past illness Narrative* Problem Noted Date Resolved Date Screen for Osteoporosis 12/23/2008 12/24/19 09 documented as of this encounter (statuses as of 06/06/2021) [address]12-2009 History of Past illness Narrative* Problem Noted Date Resolved Date Screen for Osteoporosis 12/23/2008 12/24/19 09 documented as of this encounter (statuses as of 06/12/2021) [address]12-2009 History of Past illness Narrative* Problem Noted Date Resolved Date Screen for Osteoporosis 12/23/2008 12/24/19 09 documented as of this encounter (statuses as of 06/19/2021) [address]12-2009 History of Past illness Narrative* Problem Noted Date Resolved Date Screen for Osteoporosis 12/23/2008 12/24/19 09 documented as of this encounter (statuses as of 06/30/2021) [address]-2009 History of Past illness Narrative* Problem Noted Date Resolved Date Screen for Osteoporosis 12/23/2008 12/24/19 documented as of this encounter (statuses as of 06/30/2021) [address]-2009 History of Past illness Narrative* Problem Noted Date Resolved Date Screen for Osteoporosis 12/23/2008 12/24/19 documented as of this encounter (statuses as of 07/20/2021) [facility] History of Past illness Narrative* Problem Noted Date Resolved Date Screen for Osteoporosis 12/23/2008 12/24/19 09 documented as of this encounter (statuses as of 08/25/2021) [facility] History of Past illness Narrative* Problem Noted Date Resolved Date Screen for Osteoporosis 12/23/2008 12/24/19 documented as of this encounter (statuses as of 02/15/2022) [facility] Sensorineural hearing loss, bilateral- Primary [facility] Diagnosis Sensorineural hearing loss, bilateral- Primary Cochlear implant follow-up Other specified aftercare following surgery [facility] Diagnosis Sensorineural hearing loss, bilateral- Primary [facility] Diagnosis Sensorineural hearing loss, bilateral- Primary Cochlear implant follow-up Other specified aftercare following surgery documented in this encounter [facility] Summary Purpose Family History No Family History [...] or prosecute any alcohol or drug abuse patient.[facility] the event this information is protected by the Federal Confidentiality of Alcohol and Drug Abuse Patient Records regulations: The Federal rules restrict any use of the information to criminally investigate or prosecute any alcohol or drug abuse patient.[facility] the event this information is protected by the Federal Confidentiality of Alcohol and Drug Abuse Patient Records regulations: The Federal rules restrict any use of the information to criminally investigate or prosecute any alcohol or drug abuse patient.[facility] the event this information is protected by the Federal Confidentiality of Alcohol and Drug Abuse Patient Records regulations: The Federal rules restrict any use of the information to criminally investigate or prosecute any alcohol or drug abuse patient.[facility] the event this information is protected by the Federal Confidentiality of Alcohol and Drug Abuse Patient Records regulations: The Federal rules restrict any use of the information to criminally investigate or prosecute any alcohol or drug abuse patient.[facility] the event this information is protected by the Federal Confidentiality of Alcohol and Drug Abuse Patient Records regulations: The Federal rules restrict any use of the information to criminally investigate or prosecute any alcohol or drug abuse patient.[facility] the event this information is protected by the Federal Confidentiality of Alcohol and Drug Abuse Patient Records regulations: The Federal rules restrict any use of the information to criminally investigate or prosecute any alcohol or drug abuse patient.[facility] the event this information is protected by the Federal Confidentiality of Alcohol and Drug Abuse Patient Records regulations: The Federal rules restrict any use of the information to criminally investigate or prosecute any alcohol or drug abuse patient.[facility] the event this information is protected by the Federal Confidentiality of Alcohol and Drug Abuse Patient Records regulations: The Federal rules restrict any use of the information to criminally investigate or prosecute any alcohol or drug abuse patient.[facility] the event this information is protected by the Federal Confidentiality of Alcohol and Drug Abuse Patient Records regulations: The Federal rules restrict any use of the information to criminally investigate or prosecute any alcohol or drug abuse patient.[facility] the event this information is protected by the Federal Confidentiality of Alcohol and Drug Abuse Patient Records regulations: The Federal rules restrict any use of the information to criminally investigate or prosecute any alcohol or drug abuse patient.[facility] the event this information is protected by the Federal Confidentiality of Alcohol and Drug Abuse Patient Records regulations: The Federal rules restrict any use of the information to criminally investigate or prosecute any alcohol or drug abuse patient.[facility] Reason for Visit (unrecogniz ed section and [...] BE BASED ON THE PRIMARY CLINICAL RECORDS. [facility] [employer] [facility]. provides no warranty or guarantee of the accuracy or completeness of information in this document.
== END | disposition home or self-care (01) ==
LOC: CT 14:34
PROVIDERS: PCP Internal Medicine; Referring Provider Psychiatry & Neurology Neurology; Visit Provider Psychiatry & Neurology Neurology
DX: F03.90 Unspecified dementia, unspecified severity, without behavioral disturbance, psychotic disturbance, mood disturbance, and anxiety (principal)
CPT/HCPCS: 70450

== ENCOUNTER → 2023-03-07 | Outpatient (CLI) | payer MEDICARE, BC, SELFPAY ==
--- NOTE | 2023-03-07 15:53 | BI_ITS ---
MAMMOGRAPHY - BILATERAL SCREENING REASON FOR EXAM: Female, 68 years old. Routine annual screening examination. PERTINENT HISTORY: Non-contributory. TECHNIQUE: Digital bilateral breast shaw (3D mammographic acquisition) in the CC and MLO projections. 2-D mediolateral oblique (MLO) and craniocaudad (CC) views of both breasts were obtained. CAD: Full Field Digital Mammography with Computer Added Detection was performed. COMPARISON: Comparison is made with prior study dated February 02, 2021 and March 03, 2019. FINDINGS: Breast Composition: The breasts are extremely dense, which lowers the sensitivity of mammography. There are no dominant masses or suspicious calcifications. No other significant abnormalities are identified. There has been no significant change since the prior study. BI/SCRN MAMM (CAD)W/SHAW BILAT IMPRESSION: Stable bilateral screening mammogram. Yearly follow-up mammogram recommended. (A) ASSESSMENT CATEGORY: BIRADS Category 2: Benign. A letter regarding these results will be sent to the patient by the facility within 30 days. Approximately 10% of breast cancers are not detected by mammography. A normal mammogram should not delay biopsy of a clinically suspicious abnormality. [id number] Electronically Signed: Carson Manley MD at 9:25 EST ,
--- NOTE | 2023-03-07 16:06 | BD_ITS ---
STUDY: DUAL ENERGY X-RAY ABSORPTIOMETRY / DXA REASON FOR EXAM: Female, 68 years old. Osteoporosis TECHNIQUE: Bone Mineral Density (BMD) measurements of lumbar spine and bilateral hips were obtained. COMPARISON: Comparison is made with prior study dated February 02, 2021. FINDINGS: Lumbar Spine (L1-L4): g/cm2 (1.050) / T-score (0.0) / Z-score (1.9) Findings are suggestive of normal bone density with a low fracture risk. Left Femur Total: g/cm2 (0.775) / T-score (-1.4) / Z-score (0.0) Left Femoral Neck: g/cm2 (0.604) / T-score (-2.2) / Z-score (-0.6) Right Femur Total: g/cm2 (0.797) / T-score (-1.2) / Z-score (0.2) Right Femoral Neck: g/cm2 (0.575) / T-score (-2.5) / Z-score (-0.8) The T-Scores on the most recent prior examination were: Lumbar Spine (L1-L4): There has been improvement of bone density since the previous examination. Left Femur Total: which represents an improvement of 3.8%. Right Femur Total: which represents an improvement of 5.5%. BD/Dexa Bone Density Study IMPRESSION: The patient is considered osteoporotic as outlined below according to World Travis Organization (WHO) criteria with a high fracture risk. There has been improvement of bone density since the previous examination. Reference Information: The T-score is the number of standard deviations above or below the standard which is normal for young adults at their peak bone mineral density. The World Health Organization (WHO) interprets the T-scores as follows: Above -1 Normal bone density Between -1 and -2.5 Osteopenia Equal to / or below -2.5 Osteoporosis As a practical clinical guideline, osteopenia may be graded as follows: Mild -1 through -1.5 Moderate -1.6 through -2.0 Severe -2.1 through -2.4 The Z-score is the number of standard deviations above or below age-matched controls. A Z-score of less than -1.5 would be considered abnormal. References: 1. NIH Osteoporosis and Related Bone Diseases www osteo.org 2. International Society for Clinical Densitometry www iscd.org 3. National Osteoporosis Foundation www nof.org Electronically Signed: Carson Manley MD at 14:16 EST ,
--- OUTSIDE RECORDS SUMMARY | 2023-03-07 16:08 | XMS RPT_ITS | CCD ---
Author Name Unknown Address [address] [place] [address] Organization [facility] Care Team Providers Care Mounting Inspector Name Role Phone Unavailable Primary Care Provider [...] Translations: [CATS] Allergy to substance 5 Itching [facility] (13 sources) Codeine; Translations: [CODEINE] Drug Allergy 9 Vomiting [facility] (13 sources) Seasonal allergy; Translations: [SEASONAL ALLERGIES] Allergy to substance 9 Other: See Comments [facility] Work Phone: Medications Completed/Discontinued Medications Medication Drug [...] Author Start: 02-08-2023 LIPID SCREEN LIPID SCREEN [facility] Start: 04-18-2022 Colonoscopy COLONOSCOPY [facility] Start: 04-18-2022 COLORECTAL CANCER SCREENING COLORECTAL CANCER SCREENING [facility] Start: 02-11-2022 ADVANCE DIRECTIVE DISCUSSION ADVANCE DIRECTIVE DISCUSSION [facility] Start: 02-11-2022 DEPRESSION ASSESSMENT DEPRESSION ASSESSMENT [facility] Start: 10-12-2021 Influenza vaccination [facility] Start: 09-26-2021 EUSELIAS, Provider: Marychuy Cage, Status: Pen, Time: 11:40 AM SUSAN, Provider: Marychuy Cage, Status: Pen, Time: 11:40 AM [facility] 450 DO Work Phone: Start: 07-17-2021 DIABETES SCREEN DIABETES SCREEN [facility] Start: 02-11-2021 ADVANCE DIRECTIVE DISCUSSION ADVANCE DIRECTIVE DISCUSSION [facility] Start: 01-21-2021 BONE DENSITY BONE DENSITY [facility] Start: 01-21-2021 PNEUMOCOCCAL: 65+ (3 - PPSV23 if available, else PCV20) PNEUMOCOCCAL: 65+ (3 - PPSV23 if available, else PCV20) [facility] Start: 01-21-2021 PNEUMOCOCCAL: 65+ (3 - PPSV23 or PCV20) PNEUMOCOCCAL: 65+ (3 - PPSV23 or PCV20) [facility] Start: 01-21-2021 PNEUMOVAX AGE 65 AND OVER WITH 5YR LOOKBACK (#1) PNEUMOVAX AGE 65 AND OVER WITH 5YR LOOKBACK (#1) [facility] Start: 12-08-2020 Urine microalbumin profile DTAP,TDAP,TD (2 - Td or Tdap) [facility] Start: 04-03-2018 Mammography MAMMOGRAM [facility] Start: 02-22-2018 Adult depression screening assessment DEPRESSION SCREENING [facility] Start: 01-21-2006 SHINGRIX VACCINE (1 of 2) SHINGRIX VACCINE (1 of 2) [facility] Start: 01-21-2001 COLOGUARD (FIT-DNA) COLOGUARD (FIT-DNA) [facility] Start: 01-21-[address] COLONOGRAPHY [facility] Start: 01-21-2001 FECAL OCCULT BLOOD FECAL OCCULT BLOOD [facility] Start: 01-21-2001 SIGMOIDOSCOPY SIGMOIDOSCOPY [facility] Start: 01-21-1974 HEPATITIS C SCREENING HEPATITIS C SCREENING [facility] Start: 01-21-1974 HIV SCREENING HIV SCREENING [facility] Start: 01-21-1961 COVID-19 VACCINE (#1) COVID-19 VACCINE (#1) [facility] Start: 01-21-1961 COVID-19 VACCINE (1) COVID-19 VACCINE (1) [facility] Start: 1955 COVID-19 VACCINE (#1) COVID-19 VACCINE (#1) [facility] Immunizations Immunization Date Immunization Notes Care Provider Aakash kaba 12-26-2017 influenza, seasonal, injectable Savi Misael Work Phone: [facility] 12-02-2015 influenza, seasonal, injectable Saiv Misael Work Phone: [facility] Work Phone: 12-08-2013 influenza, seasonal, injectable Savi Misael Work Phone: [facility] 06-18-2012 pneumococcal conjuga te vaccine, 13 valent Savi Misael Work Phone: [facility] 12-08-2010 tetanus toxoid, redu kellen diphtheria toxoid, and acellular pertussis vaccine, adsorbed Savi Misael Work Phone: [facility] 03-31-2009 pneumococcal polysaccharide vaccine, 23 valent Savi Misael Work Phone: [facility] Payers Date Payer Category Payer Medicare MEDICARE MEDICAR E A AND B [id number] 2021-Present [phone] [place] [address] Medicare [id number] 2021 Medicare [id number] 2021 Medicare [id number] 2021 Medicare MEDICARE MEDICAR E A AND B [id number] 2021-Present [phone] [place] [address] Medicare [id number] 2021 Unknown ANTHEM AMARI [place] DICARE SUPPLEMENT [id number] 2021-Present [phone] [address] [place] [address] Indemnity [id number] 2012 Unknown Social History Date Type Detail Facility Start: 09-28-2014 Tobacco smoking stat [facility] Never smoked tobacco [facility] Work Phone: Start: 02-20-2018 Alcohol intake Current drinke r of alcohol (finding) [facility] Start: 12-14-2008 History SDOH Alcohol Comment a glass of wine with dinner maybe once a month [facility] Start: 1955 Sex Assigned At Female [facility] Work Phone: Start: 05-05-2021 End: 08-07-2021 Exposure to SARS-CoV-2 (event) Not sure [facility] Start: 09-28-2014 Tobacco use and exposure Smokeless tobacco non-user [facility] Medical Equipment Procedure Code Equipment Code Equipment Origin al Text Equipment Identifier Dates Implant Sys Coch lear Cont Adv - [id number] Start: 05-20-2009 Clinical Notes 12-23-2008 to [...] 2026. Hope this helps. From: Ilsa Lal <[email or web address]> Sent: Saturday, February 12, 2022 6:22 PM [...] 12, 2022, at 5:24 PM, Ilsa Lal <[email or web address]> wrote: > > ?> ?Hi! Which of these do I currently have? The N6 or N7. I thought that this past Spring, I got the N > > Thank you, in advance, for your time.--Ilsa Lal > > Sent from my iPhone documented in this encounter [facility] 08-25-2021 Miscellaneous Notes EMAIL CORRESPONDENCE Ilsa Lal <[email or web address]> Thank you for this information. I think [...] the high exposure levels. Thanks, Savi Lal <[email or web address]> Toño! Does my Phonak hearing aid shut [...] be playing. Ilsa documented in this encounter [facility] 08-07-2021 Note HNO ID: [id number] Author: Mecca Grover, PhD Service: ? Author Type: Bottle And Glass Inspector Type: Progress Notes Filed: 08/24/2021 8:40 PM Note Text: Head and Neck Cherry Section of Allied Hearing, Speech and Balance Services COCHLEAR IMPLANT ADULT PROGRAMMING Name: Ilsa Way Hali [facility]CF#: [id number] Date of Service: August 07, 2021 Date of : 1955 Age: [age] year old COCHLEAR IMPLANT INFORMATION (see below for all device details) RIGHT ear: External Processor: [employer]chle[employer] [id number] (Nucleus 7) External Processor [employer] CP 1000 (Nucleus 7) Processor SN [id number] Processor (CP810) SN [id number] Processor (CP810) SN [id number] Magnet Strength 1/2 Internal Device Cochlear Nucleus CI512 Internal Device SN [id number] Inactive electrodes None Surgery Date 05/20/2009 Initial activation date 06/07/2009 Surgeon Lionel Zuluaga MD Left ear:?ReSound Ramirez Q7 [id number]? SN: [id number]? Earmold/Tubing: custom earmold? Fitting Date:??05/15/2021 Repair Warranty Expiration Date:??05/19/2021 Loss/Damage Expiration Date:??05/19/2021 Fitting Bottle And Glass Inspector:?Mecca Rivers, LORA/A ? Back-up devices: Phonak Bolero V90-SP; SN: [id number]; with 13 thick tubing,?full shell earmold, with pressure vent. Both devices were donated to the patient and were fit 08/19/17 at the Clinic. Phonak Ashley S III UP; SN: [id number]; Shell Earmolds. Fit at the Clinic and is being managed by us. Accessories: Remote Control (CR310) SN: [id number] Remote Director Of Maternity Services (Nucleus 5 and Nucleus 6) Mini Microphone [...] Speech perception testing was completed at 60 display manager using recorded stimuli in the sound field at 0 degrees azimuth. NOTE: The contralateral ear was not plugged and muffed or masked during testing. The following testing and results were obtained: Cfkxlyabd-Xshakqv-Madlbbdyt Words (CNC) Test Condition List # Phonemes [...] in clinic stock. This was ordered from [employer] with direct shipment to Ms Lal's residence (RMA: [id number]). Demonstration was provided on volume and program adjustment using [employer] remote. Datalogging: N/a (new processor) RIGHT Programming: [...] and 60-day postact (more content not included)... [facility] 08-07-2021 History of Presen t illness Narrative Head and Neck Cherry Section of Allied Hearing, Speech and Balance Services COCHLEAR IMPLANT ADULT PROGRAMMING Name: Ilsa Lal CCF#: [id number] Date of Service: August 07, 2021 Date of : 1955 Age: [age] year old COCHLEAR IMPLANT INFORMATION (see below for all device details) RIGHT ear: External Processor: [employer] IC3191 (Nucleus 7) External Processor [employer] CP 1000 (Nucleus 7) Processor SN [id number] Processor (CP810) SN [id number] Processor (CP810) SN [id number] Magnet Strength 1/2 Internal Device Cochlear Nucleus CI512 Internal Device SN [id number] Inactive electrodes None Surgery Date 05/20/2009 Initial activation date 06/07/2009 Surgeon Lionel Zuluaga MD Left ear: ReSound Ramirez Q7 [id number] SN: [id number] Earmold/Tubing: custom earmold Fitting Date: 05/15/2021 Repair Warranty Expiration Date: 05/19/2021 Loss/Damage Expiration Date: 05/19/2021 Fitting Bottle And Glass Inspector: Mecca Rivers, CCC/A Back-up devices: Phonak Bolero V90-SP; SN: [id number] & [id number]; with 13 thick tubing, full shell earmold, with pressure vent. Both devices were donated to the patient and were fit 08/19/17 at the Clinic. Phonak Ashley S III UP; SN: [id number]; Shell Earmolds. Fit at the Clinic and is being managed by us. Accessories: Remote Control (CR310) SN: [id number] Remote Director Of Maternity Services (Nucleus 5 and Nucleus 6) Mini Microphone [...] Speech perception testing was completed at 60 display manager using recorded stimuli in the sound field at 0 degrees azimuth. NOTE: The contralateral ear was not plugged and muffed or masked during testing. The following testing and results were obtained: Wpnhlfozm-Utemdtf-Ftvtqwyhz Words (CNC) Test Condition List # Phonemes [...] direct shipment to Ms Lal's residence (RMA: [id number]). Demonstration was provided on volume and program adjustment using [employer]. Datalogging: N/a (new processor) RIGHT Programming: Headset [...] office. * Contact Mecca Win ([employer] access services representative) for device/accessory/technology assistance. * Contact the [...] minutes Bijan Barahona. Doctor of Audiology (Mecca) Hand Laminator Mecca Grover, PhD, VICKI, CCC/A documented in this encounter [facility] 07-20-2021 Note HNO ID: [id number] Author: Savi Gonzalez Service: ? Author Type: ? Type: Progress Notes Filed: 07/20/2021 9:37 AM Note Text: Head and Neck Cherry HEARING AID DISPENSING Name: Ilsa Lal [facility]#: [id number] Date of Service: 07/20/2021 Date of : 1955 Age: [age] year old ? Right ear: External Processor: [employer] CP920 (Nucleus 6) ?Processor SN: [id number] ?Processor (CP810)?SN: [id number] ?Processor (CP810) SN: [id number] ?Magnet strength: 1 ? Internal Device: Cochlear Nucleus CI512 ?Internal Device SN: [id number] ?Inactive electrodes: None? ? Surgery Date: 05/20/2009 Initial activation date: 06/07/2009 Surgeon: Lionel Zuluaga M.D. LEFT: Stefan Slade 70 UP SN: [id number] Earmold/Tubin tubing, full shell acrylic mold Fitting Date: 06/30/2021 Repair Warranty Expiration Date: 07/12/2023 Loss/Damage Expiration Date: 07/12/2023 Fitting Bottle And Glass Inspector: Mecca Rivers, JUANITA Ilsa was seen today for the dispensing of the above devices within the Nvwsn-ou-Kqquba period. In addition, Ilsa Way Hali the [...] audiologic testing.. DON Salgado Doctor of Audiology Hand Laminator This appointment was conducted under the direct supervision of Mecca Rivers CCC-A. Mecca Rivers CCC-A Supervising Bottle And Glass Inspector [facility] 07-20-2021 History of Presen t illness Narrative Head and Neck Cherry HEARING AID DISPENSING Name: Ilsa Lal [facility]#: [id number] Date of Service: 07/20/2021 Date of : 1955 Age: [age] year old Right ear: External Processor: [employer] CP920 (Nucleus 6) Processor SN: [id number] Processor (CP810) SN: [id number] Processor (CP810) SN: [id number] Magnet strength: 1 Internal Device: Cochlear Nucleus CI512 Internal Device SN: [id number] Inactive electrodes: None Surgery Date: 05/20/2009 Initial activation date: 06/07/2009 Surgeon: Lionel Zuluaga M.D. LEFT: Stefan Escobedoida P 70 UP SN: [id number] Earmold/Tubin tubing, full shell acrylic mold Fitting Date: 06/30/2021 Repair Warranty Expiration Date: 07/12/2023 Loss/Damage Expiration Date: 07/12/2023 Fitting Bottle And Glass Inspector: Mecca Rivers CCC-A Isla was seen today for the dispensing of the above devices within the Zwfmr-zu-Nfjaqw period. In addition, Ilsa Way Hali the [...] audiologic testing.. DON Salgado Doctor of Audiology Hand Laminator This appointment was conducted under the direct supervision of Mecca Rivers CCC-A. Mecca Rivers CCC-A Supervising Bottle And Glass Inspector documented in this encounter [facility] 06-30-2021 Miscellaneous Notes EMAIL CORRESPONDENCE Ilsa Lal <[email or web address]> Ok, thank you so much for your time. I ll see you again on July 20! Savi Gonzalez Your new Phonak hearing aid, previous Phonak hearing aid, and the ReSound hearing aid you returned are all digital. Hearing aids have been digital since the late . Ilsa Lal [email or web address]> Is my new hearing aid a digital hearing aid or an analog hearing aid? Also, was my old hearing aid a digital or analog hearing aid (the Phonak)? documented in this encounter [facility] 06-30-2021 Note HNO ID: [id number] Author: Savi Gonzalez Service: ? Author Type: ? Type: Progress Notes Filed: 06/30/2021 1:47 PM Note Text: Head and Neck Cherry HEARING AID FITTING Name: Ilsa Lal [facility]#: [id number] Date of Service: 06/30/2021 Date of : 1955 Age: [age] year old Right ear: External Processor: [employer] CP920 (Nucleus 6) ?Processor SN: [id number] ?Processor (CP810)?SN: [id number] ?Processor (CP810) SN: [id number] ?Magnet strength: 1 ? Internal Device: Cochlear Nucleus CI512 ?Internal Device SN: [id number] ?Inactive electrodes: None? ? Surgery Date: 05/20/2009 Initial activation date: 06/07/2009 Surgeon: Lionel Zuluaga M.D. FIT TODAY: LEFT: Phonak Ashley P 70 UP SN: [id number] Earmold/Tubin tubing, full shell acrylic mold Fitting Date: 06/30/2021 Repair Warranty Expiration Date: 07/12/2023 Loss/Damage Expiration Date: 07/12/2023 Fitting Bottle And Glass Inspector: Mecca Rivers CCC-Rayna RETURNED FOR CREDIT TODAY: ReSound Ramirez Q7 [id number]? SN: [id number]? Earmold/Tubing: custom earmold? Fitting Date:??05/15/2021 Repair Warranty Expiration Date:??05/19/2021 Loss/Damage Expiration Date:??05/19/2021 Fitting Bottle And Glass Inspector:?Mecca Rivers CCC/Rayna Ilsa Lal was seen today for an even exchange of recently dispensed GN Resound Ramirez Q7 (SN [id number]) for a Phonak Ashley P 70 UP (SN [id number]). The Phonak device was initially programmed With [...] P 70 UP; her GN ReSound Q7 PM788-JASR?remained at the clinic for return to the community affairs manager. Recommendations * Return for hearing aid dispensing appointment on 07/20/2021. * Return for cochlear implant consult on 08/07/2021. Lonny Rivers, [facility] Bottle And Glass Inspector [facility] 06-30-2021 History of Presen t illness Narrative Head and Neck Cherry HEARING AID FITTING Name: Ilsa Lal CCF#: [id number] Date of Service: 06/30/2021 Date of : 1955 Age: [age] year old Right ear: External Processor: [employer]chle[employer] CP920 (Nucleus 6) Processor SN: [id number] Processor (CP810) SN: [id number] Processor (CP810) SN: [id number] Magnet strength: 1 Internal Device: Cochlear Nucleus CI512 Internal Device SN: [id number] Inactive electrodes: None Surgery Date: 05/20/2009 Initial activation date: 06/07/2009 Surgeon: Lionel Zuluaga M.D. FIT TODAY: LEFT: Phonak Ashley P 70 UP SN: [id number] Earmold/Tubin tubing, full shell acrylic mold Fitting Date: 06/30/2021 Repair Warranty Expiration Date: 07/12/2023 Loss/Damage Expiration Date: 07/12/2023 Fitting Bottle And Glass Inspector: Mecca Rivers CCC-A RETURNED FOR CREDIT TODAY: ReSound Ramirez Q7 [id number] SN: [id number] Earmold/Tubing: custom earmold Fitting Date: 05/15/2021 Repair Warranty Expiration Date: 05/19/2021 Loss/Damage Expiration Date: 05/19/2021 Fitting Bottle And Glass Inspector: Mecca Rivers CCC/A Ilsa Lal was seen today for an even exchange of recently dispensed GN Resound Ramirez Q7 (SN [id number]) for a Phonak Ashley P 70 UP (SN [id number]). The Phonak device was initially programmed With [...] P 70 UP; her GN ReSound Q7 [id number]-UHLC remained at the clinic for return to the community affairs manager. Recommendations * Return for hearing aid dispensing appointment on 07/20/2021. * Return for cochlear implant consult on 08/07/2021. Lonny Rivers, [facility] Bottle And Glass Inspector documented in this encounter [facility] 06-19-2021 Miscellaneous Notes EMAIL CORRESPONDENCE Ilsa Lal <[email or web address]> Hi! Just so you know, it is [...] then all will be ok? Nabeel Lal <[email or web address]> Antonino (toro et al), you have a [...] if you find it! Best, Antonino Lal <[email or web address]> Toño KEARNEY! I have added Dr. Gonzalez [...] I'd appreciate it. --Ilsa From: Ilsa Lal <[email or web address]> Sent: Sunday, June 13, 2021 7:27 AM To: Savi Gonzalez < > Subject: Re: [EXT] Were you Did the Resound hearing aid come in a case or bag? That may be where the Phonak hearing aid is? I was not given a case or bag for the ReSound. Ilsa Lal <[email or web address]> I would have to had taken my Phonak hearing aid out of my ear in order to put the new ReSound hearing aid on. Please ask Antonino to help you find the hearing aid. Thank you. Sent from my iPhone documented in this encounter [facility] 06-12-2021 Miscellaneous Notes EMAIL CORRESPONDENCE Ilsa Lal <[email or web address]> Sat06/12/2021 9:17 AM Thank you for your [...] the device in our clinic. Savi Rosenbaum Ebony <[email or web address]> 06/11/2021 12:34 PM I went to yazidism today. I m sorry, but I am very unhappy with the ReSound hearing aid. Please let s change it to Phonak! Ilsa Ebony <[email or web address]> 06/10/2021 8:33 PM The reason I m asking this question is because I think I only hear half of what heard before, especially, in my left ear. Ilsa Hali [email or web address] 06/10/2021 8:10 PM Hi! So sorry to bother you again. Right now, it seems that my hearing is worse than before I got the ReSound hearing aid. Once I get the upgrade CI, will at that time I ll feel better about my hearing in BOTH ears? Ilsa Rosenbaum Ebony <[email or web address]> 06/10/2021 7:22 AM Hi! I am starting to enjoy the new ReSound hearing aid. I look forward to tomorrow in using the T-coil in yazidism tomorrow. Please do not dispose of my old Phonak hearing aid that I left behind in your office. I like to keep a back-up hearing aid, in case something happens to the ReSound. Thank you and see you on June 30. Ilsa Perezdenise Lal <[facility]> [facility] 06/08/2021 9:33 PM This applies to the old one that I think I left it behind in your office(?) and a new one. Thank you. Ilsa Latta <[email or web address]> [facility] 06/08/2021 9:03 PM So sorry to bother you again. Did I leave my old hearing aid (Phonak) there at [facility]? I can t seem to find it. Ilsa Lal <[email or web address]> Latisha 06/08/2021 8:40 PM It is my hope that I can return the Resound hearing aid back to you & get a refund? Or apply the money towards the Phonak hearing aid. Ilsa Lal <[email or web address]> [facility] 06/08/2021 8:29 PM Hi! I am [...] than that? Ilsa documented in this encounter [facility] 06-06-2021 Note HNO ID: [id number] Author: Savi Gonzalez Service: ? Author Type: ? Type: Progress Notes Filed: 06/06/2021 1:29 PM Note Text: Head and Neck Cherry HEARING AID DISPENSING Name: Ilsa Lal [facility]#: [id number] Date of Service: 06/06/2021 Date of : 1955 Age: [age] year old Right ear: External Processor: [employer] CP920 (Nucleus 6) ?Processor SN: [id number] ?Processor (CP810)?SN: [id number] ?Processor (CP810) SN: [id number] ?Magnet strength: 1 ? Internal Device: Cochlear Nucleus CI512 ?Internal Device SN: [id number] ?Inactive electrodes: None? ? Surgery Date: 05/20/2009 Initial activation date: 06/07/2009 Surgeon: Lionel Zuluaga M.D. ? Left ear: ReSound Ramirez Q7 [id number] SN: [id number] Earmold/Tubing: custom earmold Fitting Date: 05/15/2021 Repair Warranty Expiration Date: 05/19/2021 Loss/Damage Expiration Date: 05/19/2021 Fitting Bottle And Glass Inspector: Mecca Rivers, LORA/Rayna ? Back-up devices: Phonak Bolero V90-SP; SN: [id number]; with 13 thick tubing,?full shell earmold, with pressure vent. Both devices were donated to the patient and were fit 08/19/17 at the Clinic. Phonak Ashley S III UP; SN: [id number]; Shell Earmolds. Fit at the Clinic and is being managed by us. ? ACCESSORIES Remote Control Remote Director Of Maternity Services (Nucleus 5 and Nucleus 6) Mini Microphone 2+ ? Ilsa was seen today for the dispensing of the above devices within the Qfnmt-ot-Cpjxkm period. In addition, Ilsa Way Hali stated the following regarding the devices: * She reported soreness caused by the helix curl of her ear mold * She requested that she be provided more volume/power through her hearing aid * Requested the addition of a manual telecoil program for use with the loop system in her yazidism * Requested confirmation that the volume control [...] Apple ID. DON Jones Doctor of Audiology Hand Laminator This appointment was conducted under the direct supervision of Mecca Rivers CCC-A. Mecca Rivers CCC-A Supervising Bottle And Glass Inspector [facility] 06-06-2021 History of Presen t illness Narrative Head and Neck Cherry HEARING AID DISPENSING Name: Ilsa Lal [facility]#: [id number] Date of Service: 06/06/2021 Date of : 1955 Age: [age] year old Right ear: External Processor: Cochlear [employer] CP920 (Nucleus 6) Processor SN: [id number] Processor (CP810) SN: [id number] Processor (CP810) SN: [id number] Magnet strength: 1 Internal Device: Cochlear Nucleus CI512 Internal Device SN: [id number] Inactive electrodes: None Surgery Date: 05/20/2009 Initial activation date: 06/07/2009 Surgeon: Lionel Zuluaga M.D. Left ear: ReSound Ramirez Q7 [id number] SN: [id number] Earmold/Tubing: custom earmold Fitting Date: 05/15/2021 Repair Warranty Expiration Date: 05/19/2021 Loss/Damage Expiration Date: 05/19/2021 Fitting Bottle And Glass Inspector: Mecca Rivers CCC/Rayna Back-up devices: Phonak Bolero V90-SP; SN: [id number]; with 13 thick tubing, full shell earmold, with pressure vent. Both devices were donated to the patient and were fit 08/19/17 at the Clinic. Phonak Ashley S III UP; SN: [id number]; Shell Earmolds. Fit at the Clinic and is being managed by us. ACCESSORIES Remote Control Remote Director Of Maternity Services (Nucleus 5 and Nucleus 6) Mini Microphone 2+ Ilsa was seen today for the dispensing of the above devices within the Mhwtu-iz-Bgsozz period. In addition, Ilsa Lal stated the following regarding the devices: * She reported soreness caused by the helix curl of her ear mold * She requested that she be provided more volume/power through her hearing aid * Requested the addition of a manual telecoil program for use with the loop system in her yazidism * Requested confirmation that the volume control [...] Apple ID. DON Jones Doctor of Audiology Hand Laminator This appointment was conducted under the direct supervision of Mecca Rivers CCC-A. Mecca Rivers CCC-A Supervising Bottle And Glass Inspector documented in this encounter [facility] 05-29-2021 Miscellaneous Notes EMAIL CORRESPONDENCE Savi Gonzalez [...] appointment next Saturday. Thank you, Savi Lal [email or web address] [place] 05/28/2021 7:24 AM Hi! The new earmold that was made for me needs to be filed down or something. It hurts my ear. Also, I think that Antonino mentioned an appointment in 3 weeks, which would be June 05. Can we schedule this appt. to take care of the earmold, plus anything else? Ilsa documented in this encounter [facility] 05-16-2021 Miscellaneous Notes EMAIL CORRESPONDENCE Savi Gonzalez [facility] 05/16/2021 1:52 PM Toño, Ilsa, Having the cell phone connected with the hearing aids will not interfere with your use of another phone. That being said, you can always disconnect your hearing aids from your cell phone by going into the settings on your phone and turning your Bluetooth off. Thank you, Savi Lal [email or web address] [facility] 05/16/2021 12:36 PM Hi! I appreciate my new hearing aid being connected to my cell phone! I need to know how to turn that off, because I have to answer the phone in the [employer] office. (Where I work, part-time.) Thank you! Ilsa documented in this encounter [facility] 05-15-2021 Note HNO ID: [id number] Author: Savi Gonzalez Service: ? Author Type: ? Type: Progress Notes Filed: 05/15/2021 1:20 PM Note Text: Head and Neck Cherry HEARING AID FITTING Name: Ilsa Lal [facility]#: [id number] Date of Service: 05/15/2021 Date of : 1955 Age: [age] year old Right ear: External Processor: Cochlear [employer] CP920 (Nucleus 6) ?Processor SN: [id number] ?Processor (CP810)?SN: [id number] ?Processor (CP810) SN: [id number] ?Magnet strength: 1 ? Internal Device: Cochlear Nucleus CI512 ?Internal Device SN: [id number] ?Inactive electrodes: None? ? Surgery Date: 05/20/2009 Initial activation date: 06/07/2009 Surgeon: Lionel Zuluaga M.D. ? Left ear: ReSound Ramirez Q7 [id number] SN: [id number] Earmold/Tubing: custom earmold Fitting Date: 05/15/2021 Repair Warranty Expiration Date: 05/19/2021 Loss/Damage Expiration Date: 05/19/2021 Fitting Bottle And Glass Inspector: Mecca Rivers CCC/Rayna Back-up devices: Phonak Bolero V90-SP; SN: [id number]; with 13 thick tubing,?full shell earmold, with pressure vent. Both devices were donated to the patient and were fit 08/19/17 at the Clinic. Phonak Ashley S III UP; SN: [id number]; Shell Earmolds. Fit at the Clinic and is being managed by us. ? ACCESSORIES Remote Control Remote Director Of Maternity Services (Nucleus 5 and Nucleus 6) Mini Microphone [...] Recommendations * Return within the 30 day Noqbe-hg-Iphexo Period for the Hearing Aid Dispensing Appointment. * Contact your stonecutter if you have any issues prior to your next appointment to address the issue in a timely manner. Call [phone] (press #4 and ask for the Audiology Raw Products Director) and request a call back . DON Jones Doctor of Audiology Hand Laminator Testing was obtained under the direct supervision of Mecca Rivers CCC/A I verify that I have reviewed the history, test results, and interpretation for this patient. Mecca Rivers CCC-A Supervising Bottle And Glass Inspector [facility] 05-15-2021 History of Presen t illness Narrative Head and Neck Cherry HEARING AID FITTING Name: Ilsa Lal CCF#: [id number] Date of Service: 05/15/2021 Date of : 1955 Age: [age] year old Right ear: External Processor: Cochlear [employer] CP920 (Nucleus 6) Processor SN: [id number] Processor (CP810) SN: [id number] Processor (CP810) SN: [id number] Magnet strength: 1 Internal Device: Cochlear Nucleus CI512 Internal Device SN: [id number] Inactive electrodes: None Surgery Date: 05/20/2009 Initial activation date: 06/07/2009 Surgeon: Lionel Zuluaga M.D. Left ear: ReSound Ramirez Q7 [id number] SN: [id number] Earmold/Tubing: custom earmold Fitting Date: 05/15/2021 Repair Warranty Expiration Date: 05/19/2021 Loss/Damage Expiration Date: 05/19/2021 Fitting Bottle And Glass Inspector: Mecca Rivers, LORA/A Back-up devices: Phonak Bolero V90-SP; SN: [id number]; with 13 thick tubing, full shell earmold, with pressure vent. Both devices were donated to the patient and were fit 08/19/17 at the Clinic. Phonak Ashley S III UP; SN: [id number]; Shell Earmolds. Fit at the Clinic and is being managed by us. ACCESSORIES Remote Control Remote Director Of Maternity Services (Nucleus 5 and Nucleus 6) Mini Microphone [...] Recommendations * Return within the 30 day Bygzy-mx-Dbjnir Period for the Hearing Aid Dispensing Appointment. * Contact your stonecutter if you have any issues prior to your next appointment to address the issue in a timely manner. Call [phone] (press #4 and ask for the Audiology Raw Products Director) and request a call back . DNO Jones Doctor of Audiology Hand Laminator Testing was obtained under the direct supervision of Mecca Rivers CCC/A I verify that I have reviewed the history, test results, and interpretation for this patient. Mecca Rivers CCC-A Supervising Bottle And Glass Inspector documented in this encounter [facility] 04-17-2021 Note HNO ID: [id number] Author: Savi Gonzalez Service: ? Author Type: ? Type: Progress Notes Filed: 04/17/2021 12:03 PM Note Text: HEARING NEEDS ASSESSMENT Name: Ilsa Lal CCF#: [id number] Date of Service: 04/17/2021 Date of : 1955 Age: [age] year old Right ear: External Processor: Cochlear [employer] CP920 (Nucleus 6) ?Processor SN: [id number] ?Processor (CP810)?SN: [id number] ?Processor (CP810) SN: [id number] ?Magnet strength: 1 ? Internal Device: Cochlear Nucleus CI512 ?Internal Device SN: [id number] ?Inactive electrodes: None? ? Surgery Date: 05/20/2009 Initial activation date: 06/07/2009 Surgeon: Lionel Zuluaga M.D. ? Left ear: Phonak Bolero V90-SP; SN: [id number]; with 13 thick tubing,?full shell earmold, with pressure vent. Both devices were donated to the patient and were fit 08/19/17 at the Clinic. Phonak Ashley S III UP; SN: [id number]; Shell Earmolds. Fit at the Clinic and is being managed by us. ? ACCESSORIES Remote Control Remote Director Of Maternity Services (Nucleus 5 and Nucleus 6) Mini Microphone [...] that the patient would be fit with yykbbn-lrg-vmo (BTE), Level 3 technology in the left [...] YEAR from fitting date will be a kvj-msf-fotespf. If there is an insurance benefit, the [...] to the Financial Counselors to the front desk representative appointment fee of $100. Recommendations: Return for the Hearing Aid Fitting with your stonecutter, Mecca Rivers CCC/Rayna, on 05/15/2021. Device to be ordered: -GN ReSound Ramirez Q7 in color 6 for the left ear -One custom ear mold for the left ear([place]) DON Jones Doctor of Audiology (Mecca) Hand Laminator This appointment was conducted under the direct supervision of Mecca Rivers CCC-A. Mecca Rivers CCC-A Supervising Bottle And Glass Inspector [facility] 04-17-2021 Note HNO ID: [id number] Author: MECCA Graves Service: ? Author Type: Bottle And Glass Inspector Type: Progress Notes Filed: 04/17/2021 11:51 AM Note Text: Head and Neck Cherry AUDIOLOGIC EVALUATION REPORT Name: Ilsa Lal CC#: [id number] Date of Service: 04/17/2021 Date of : [...] hearing loss and currently utilizes a Phonak [employer]ico Mediaero V90-SP BTE hearing aid in her left [...] for this patient. Lonny Graves, LORA/Rayna Clinical Bottle And Glass Inspector BARRIENTOS Abbrev- iation Definition Degree of hearing sensitivity dB range WNL within normal limits WNL 0 - 20 SNHL sensorineural hearing loss Mild 20-40 CHL conductive hearing loss Moderate 40-55 MHL mixed hearing loss Moderately-Severe 55-70 WRS word recognition score Severe 70-90 ME middle ear Profound 90 + TM tympanic membrane [facility] documented as of this encounter (statuses as of 05/15/2021) [address] History of Past illness Narrative* Problem Noted Date Resolved Date Screen for Osteoporosis 12/23/2008 12/24/19 documented as of this encounter (statuses as of 05/16/2021) [address] History of Past illness Narrative* Problem Noted Date Resolved Date Screen for Osteoporosis 12/23/2008 12/24/19 09 documented as of this encounter (statuses as of 05/29/2021) [address] History of Past illness Narrative* Problem Noted Date Resolved Date Screen for Osteoporosis 12/23/2008 12/24/19 09 documented as of this encounter (statuses as of 06/06/2021) [address] History of Past illness Narrative* Problem Noted Date Resolved Date Screen for Osteoporosis 12/23/2008 12/24/19 09 documented as of this encounter (statuses as of 06/12/2021) [address] History of Past illness Narrative* Problem Noted Date Resolved Date Screen for Osteoporosis 12/23/2008 12/24/19 09 documented as of this encounter (statuses as of 06/19/2021) [address] History of Past illness Narrative* Problem Noted Date Resolved Date Screen for Osteoporosis 12/23/2008 12/24/19 09 documented as of this encounter (statuses as of 06/30/2021) [address] History of Past illness Narrative* Problem Noted Date Resolved Date Screen for Osteoporosis 12/23/2008 12/24/19 documented as of this encounter (statuses as of 06/30/2021) [address] History of Past illness Narrative* Problem Noted Date Resolved Date Screen for Osteoporosis 12/23/2008 12/24/19 documented as of this encounter (statuses as of 07/20/2021) [facility] History of Past illness Narrative* Problem Noted Date Resolved Date Screen for Osteoporosis 12/23/2008 12/24/19 09 documented as of this encounter (statuses as of 08/25/2021) [facility] History of Past illness Narrative* Problem Noted Date Resolved Date Screen for Osteoporosis 12/23/2008 12/24/19 documented as of this encounter (statuses as of 02/15/2022) [facility] Sensorineural hearing loss, bilateral- [facility] Diagnosis Sensorineural hearing loss, bilateral- Primary Cochlear implant follow-up Other specified aftercare following surgery [facility] Diagnosis Sensorineural hearing loss, bilateral- Primary [facility] Diagnosis Sensorineural hearing loss, bilateral- Primary Cochlear implant follow-up Other specified aftercare following surgery documented in this encounter [facility] Summary Purpose Family History No Family History [...] or prosecute any alcohol or drug abuse patient.[facility] the event this information is protected by the Federal Confidentiality of Alcohol and Drug Abuse Patient Records regulations: The Federal rules restrict any use of the information to criminally investigate or prosecute any alcohol or drug abuse patient.[facility] the event this information is protected by the Federal Confidentiality of Alcohol and Drug Abuse Patient Records regulations: The Federal rules restrict any use of the information to criminally investigate or prosecute any alcohol or drug abuse patient.[facility] event this information is protected by the Federal Confidentiality of Alcohol and Drug Abuse Patient Records regulations: The Federal rules restrict any use of the information to criminally investigate or prosecute any alcohol or drug abuse patient.[facility] event this information is protected by the Federal Confidentiality of Alcohol and Drug Abuse Patient Records regulations: The Federal rules restrict any use of the information to criminally investigate or prosecute any alcohol or drug abuse patient.[facility] event this information is protected by the Federal Confidentiality of Alcohol and Drug Abuse Patient Records regulations: The Federal rules restrict any use of the information to criminally investigate or prosecute any alcohol or drug abuse patient.[facility] event this information is protected by the Federal Confidentiality of Alcohol and Drug Abuse Patient Records regulations: The Federal rules restrict any use of the information to criminally investigate or prosecute any alcohol or drug abuse patient.[facility] event this information is protected by the Federal Confidentiality of Alcohol and Drug Abuse Patient Records regulations: The Federal rules restrict any use of the information to criminally investigate or prosecute any alcohol or drug abuse patient.[facility] the event this information is protected by the Federal Confidentiality of Alcohol and Drug Abuse Patient Records regulations: The Federal rules restrict any use of the information to criminally investigate or prosecute any alcohol or drug abuse patient.[facility] event this information is protected by the Federal Confidentiality of Alcohol and Drug Abuse Patient Records regulations: The Federal rules restrict any use of the information to criminally investigate or prosecute any alcohol or drug abuse patient.[facility] event this information is protected by the Federal Confidentiality of Alcohol and Drug Abuse Patient Records regulations: The Federal rules restrict any use of the information to criminally investigate or prosecute any alcohol or drug abuse patient.[facility] event this information is protected by the Federal Confidentiality of Alcohol and Drug Abuse Patient Records regulations: The Federal rules restrict any use of the information to criminally investigate or prosecute any alcohol or drug abuse patient.[facility] Reason for Visit (unrecogniz ed section and [...] PRIMARY CLINICAL RECORDS. [facility]. provides no warranty or guarantee of the accuracy or completeness of information in this document.
== END | disposition home or self-care (01) ==
LOC: OPBD 15:53
PROVIDERS: PCP Internal Medicine; Referring Provider Internal Medicine; Visit Provider Internal Medicine
DX: Z12.31 Encounter for screening mammogram for malignant neoplasm of breast (principal); Z78.0 Asymptomatic menopausal state
CPT/HCPCS: 77063; 77067; 77080

== ENCOUNTER 2023-04-30 12:16 | Day surgery (SDC) | payer MEDICARE, BC, SELFPAY ==
[2023-04-30] VITALS (7 sets, daily range): BP systolic 131–153; BP diastolic 66–80; PULSE 67–73; RESP 16; TEMP 36.1–37.1; O2SAT 95–100; BMI 18.6
[2023-04-30] MEDS: Lactated Ringers 1,000 ML 15 ML IV (12:47)
--- NOTE | 2023-04-30 13:30 | EGD_PTH ---
PATIENT: ALMA ABARCA LOC: EN U#:[id number] AGE/SX: 68/F ROOM: RE04/30/[address]: Dr. Arsh Hurley DO : 1955 BED: DIS: 04/30/2023 SPEC #: [id number] RECD: 04/30/23 16:03 STATUS: BETY RETunde #: [id number] NATASHA: 04/30/23 13:[address]: Arsh Hurley DEPT: SURGICAL PATHOLOGY RECD BY: Lia Hamilton ENTERED: 05/01/23 08:46 SP TYPE: EGD BIOPSY OT DR: Dr. Khurram Palmer MD Tissues: A - Esophagus, NOS B - Pyloric sphincter Procedures: Special Stain Group II Surgery Specimen Level IV Alcian Blue/PAS (control) HEADER OPERATION: EGD with biopsy PRE-OP DIAGNOSIS: GERD, Dysphagia TISSUE SUBMITTED: A- Distal esophagus, B- Pyloric sphincter MICROSCOPIC DIAGNOSIS A. Distal esophagus, biopsy; Fragments of gastroesophageal mucosa with chronic inflammation. Intestinal metaplasia (goblet cell metaplasia) is not identified. See comment. B. Pyloric sphincter, biopsy; Mild gastritis. See microscopic description and comment. [facility] 05/02/2023 COMMENT A. Alcian blue/PAS stain with matched control is used in the evaluation of the specimen. B. The results of immunohistochemistry for Helicobacter pylori will be reported separately ([id number]). MICROSCOPIC DESCRIPTION Slides are reviewed. B. The specimen shows fragments of gastric mucosa with chronic inflammatory cell infiltrates in the lamina propria consisting of lymphocytes and plasma cells, consistent with mild chronic gastritis. GROSS DESCRIPTION A. Received in fixative is one container labeled with the patient's name and designated Distal esophagus biopsy. The specimen consists of multiple irregular fragments of light canales soft tissue that in aggregate measure 1.0 x 0.5 x 0.1 cm. The specimen is totally submitted in one cassette. [facility] 05/01/2023 TC: B. Received in fixative is one container labeled with the patient's name and designated Pyloric Sphincter biopsy. The specimen consists of two irregular fragments of light canales soft tissue that in aggregate measure 0.6 x 0.2 x 0.1 cm. The specimen is totally submitted in one cassette. [facility] 05/01/2023 TC:3 CPT: 05212,37658
--- NOTE | 2023-04-30 13:30 | IMM_PTH ---
PATIENT: ALMA ABARCA LOC: EN U#:[id number] AGE/SX: 68/F ROOM: RE04/30/[address]: Dr. Arsh Hurley DO : 1955 BED: DIS: 04/30/2023 SPEC #: [id number] RECD: 05/01/23 08:34 STATUS: BETY REQ #: [id number] NATASHA: 04/30/23 13:[address]: Arsh Hurley DEPT: IMMUNOHISTOCHEMISTRY RECD BY: Tim Mcgee ENTERED: 05/01/23 08:36 SP TYPE: IMMUNO OTHR DR: Dr. Khurram Palmer MD Tissues: B - Pyloric sphincter Procedures: H Pylori (initial) PHYSICIAN & INSTITUTION [place] [address] SPECIMEN INFORMATION: Tissue Source: Pyloric Sphincter Clinical Info: GERD, Dysphagia Specimen Number: [id number] CPT code: 71657 METHODOLOGY: Deparaffinized sections of prefer/formalin-fixed tissue or PAP/DQ stained slides are incubated with monoclonal/polyclonal antibodies/oligonucleotide probes. Localization is made via biotin free immunoperoxidase method. Appropriate controls are performed and reacted as expected. Results on target cell population are indicated in the following table: RESULTS: ANTIBODY / CLONE RESULT Block B H Pylori (polyclonal) negative These tests were developed and their performance characteristics determined by [facility]. They may not have been cleared or approved by the U.S. Food and Drug Administration. The FDA has determined that such clearance or approval is not necessary. The above immunohistochemical/dualISH markers are ordered and reviewed by the Pathologist. INTERPRETATION: B. Pyloric Sphincter, biopsy: Negative for Helicobacter pylori organisms. SJ:royce 05/02/2023
--- NOTE | 2023-04-30 14:43 | HP.PCM_ITS ---
History and Physical Date of Admission: 04/30/23 Chief Complaint: f/u abd pain Details: ALMA ABARCA, is a 68 F who presents to the office today for *BGI established 05.18.21 with intermittent mid-abdominal pain for two months with loss of appetite and constipation requiring manual disimpaction. Metamucil BID i neffective. ? EGD and colonoscopy 05.19.21 EGD irregular Zline 36cm with metaplasia; small hiatal hernia; gastritis; gastric hyperplastic polyp; extrinsic bulging of proximal stomach, hyperplastic. ? Colonoscopy diverticulosis. ? Gastric emptying study 06.08.21 WNL ? CT abd/pel 06.13.21 small left parapelvic cyst; colonic diverticulosis; moderate fecal burden OV 08.31.21 with ongoing symptoms of constipation and abdominal pain. Continues with PPI BID. Start doxycycline. Linzess >$300 ? CT chest 08.31.21 without acute/chronic finding ? US RUQ 10.01.02 hepatic measurement 15.4cm with normal echoge nicity. OV 10.07.02 lactulose BID has been effective in BM promotion. Intermittent epigastric pain persists. ? Biochemical 11.15.21 CBC, CMP, amylase, lipase, gastrin, celiac without pertinent abnormality ? Stool elastase L174 OV 12.09.01 BM continue to be improved, notes intermittent need to strain with periodic manual disimpaction. Increase lactulose to 30mL BID and PERT to 3 caps TID OV 1 Change to Zenpep with patient assistance; start Linzess 145mcg with patient assistance. OV 3. Continue lactulose BID ? EGD 6.04.05 small hiatal hernia; gastritis; single gastric polyp. No path changes. OV 8.. reports some mild epigastric soreness. Feels her BM pattern is good, goes some days with lack of BM and usually has complete evacuation but notes stool may not be soft at all times. Follows with pain management who has been doing injections to assist with epigastric soreness. ROS Const Constitutional: Positive for weight change; No anorexia, body ache, chills, fever(s), frequent falls, headache(s), decreased energy, malaise, night sweats, snoring, weakness, sleep problems, abnormal sleep pattern, change in appetite or other Eyes Eyes: No visual disturbances ENT ENT: No abnormal hearing, headache(s), difficulty swallowing or neck pain Resp Respiratory: No snoring Cardio Cardiology: No leg pain with exertion Gastro GI: No abdominal pain, belching, bloating, change in bowel habits, change in stool character, coffee ground emesis, constipation, cramping, diarrhea, heartburn, difficulty swallowing, feeling full early, excessive flatus, incontinent of stools, Vomiting blood/hematemesis, Blood in stool, loose stools, Black,tarry stools, nausea/dyspepsia, pain with swallowing, vomiting or other Musc Musculoskeletal: Positive for tingling; No abnormal gait, joint pain, back pain, deformity, joint swelling, limited range of motion, loss of height, muscle cramps, muscle weakness, decreased muscle mass, myalgias, neck pain, numbness, radiating pain into limb, stiffness, Arthritis, sciatica, restless legs, leg pain at night, leg pain with exertion or other Skin Skin: No acne, hair loss in leg, change in hair, nail changes, boil, change in skin color, dry skin, redness, excessive hair growth, yellowing of the eye, lesions, rash, skin pain, skin ulcer, sores, skin swelling, wounds or other Neuro Neurology: Positive for tingling; No abnormal gait, abnormal hearing, abnormal movements, abnormal speech, behavioral changes, confusion, unsteady gait/balance, dizziness, weakness, frequent falls, headache(s), lack of coordination, loss of vision, memory loss, numbness, visual disturbances, restless legs, fainting, tremor(s), Increased tone in limbs, paralysis, seizures or other Psych Psychiatric: No abnormal sleep pattern, No lack of enjoyment, No anxiety, No behavioral changes, No change in appetite, No confusion, No depression, No difficulty concentrating, No hopelessness, No irritability, No memory loss, No mood swings, No panic attacks, No paranoia, No Thoughts of harming yourself/Others, No hallucinations, No Behavioral Problems, No Compulsive Behavior, No hyperactivity, No inattentiveness, No obsessions/compulsions, No Temper Tantrums, No suicidal ideation and No other Endo Endocrine: Positive for weight change Harman/Lymp Hematologic/Lymphatic: No easy bleeding, easy bruising, enlarged lymph nodes or other Quality Reporting Tobacco Screening ([facility] 138) Smoking Status: Never smoker Assessment and Plan Assessment and Plan (1) GERD (gastroesophageal reflux disease): Status: Chronic Plan: Continue Protonix as previously ordered. (2) Weight loss, non-intentional: Status: Chronic Plan: She is on for weight loss. I think it is mostly secondary to chronic constipation. There may be some elements of depression but I did not get a chance to delve into it very deeply during this office visit. (3) Abdominal discomfort: Status: Chronic Plan: We evaluated the lower GI tract and upper GI tract and there were no signs of ulcerations, inflammation to explain the abdominal pain or discomfort that she is experiencing. 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 We will concentrate on full evacuation of bowel movements on a daily basis. I would like to give her Linzess therapy however putting the prescription and it is about $365 a month. I will give her lactulose therapy to take on a daily basis and if she feels that that hopefully will mitigate her prescription medicine such as. 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 We will perform a surveillance endoscopy for Carrasco's esophagus since it has been since July 2021. Continue PPI therapy as previously ordered. I have examined the patient and the H&P has been reviewed. There are no clinical changes since date of exam.
--- NOTE | 2023-04-30 15:50 | OP.CCLET_ITS ---
04/30/2023 Khurram Palmer MD [address] [place] [address] [place] [address] Re : Upper GI endoscopy procedure for Ilsa Lal Dear Dr. Palmer This procedure was performed on Sunday, April 30, 2023. 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 Biopsied. - Erythematous mucosa in the antrum. Biopsied. - Normal duodenal bulb. Recommendations : - Discharge patient to home. - Resume previous diet. - Continue present medications. - Await pathology results. My findings are described in the full procedure note, which is enclosed. If I can be of further assistance, please feel free to contact me at . Sincerely, Arsh Hurley, 04/30/2023 3:49:48 PM This report has been signed electronically.
--- NOTE | 2023-04-30 15:50 | OP.EGD_ITS ---
Patient Name: Ilsa Lal Procedure Date: 04/30/2023 3:28 PM Date of : 1955 Age: 68 Procedure: Upper GI endoscopy Indications: Epigastric abdominal pain, Heartburn, Follow-up of Carrasco's esophagus Providers: Arsh Hurley DO Medicines: Monitored Anesthesia Care Patient Profile: This is a 68 year old female. Refer to note in patient chart for documentation of history and physical. Patient has symptoms of chronic epigastric abdominal pain and chronic heartburn. Complications: No immediate complications. Procedure: Pre-Anesthesia Assessment: - Prior to the procedure, a History and Physical was performed, and patient medications and allergies were reviewed. The patient is competent. The risks and benefits of the procedure and the sedation options and risks were discussed with the patient. All questions were answered and informed consent was obtained. Patient identification and proposed procedure were verified by the physician in the pre-procedure area. Mental Status Examination: alert and oriented. Respiratory Examination: clear to auscultation. CV Examination: normal. Prophylactic Antibiotics: The patient does not require prophylactic antibiotics. Prior Anticoagulants: The patient has taken no anticoagulant or antiplatelet agents. ASA Grade Assessment: II - A patient with mild systemic disease. After reviewing the risks and benefits, the patient was deemed in satisfactory condition to undergo the procedure. The anesthesia plan was to use monitored anesthesia care (MAC). Immediately prior to administration of medications, the patient was re-assessed for adequacy to receive sedatives. The heart rate, respiratory rate, oxygen saturations, blood pressure, adequacy of pulmonary ventilation, and response to care were monitored throughout the procedure. The physical status of the patient was re-assessed after the procedure. After obtaining informed consent, the endoscope was passed under direct vision. Throughout the procedure, the patient's blood pressure, pulse, and oxygen saturations were monitored continuously. The Endoscope was introduced through the mouth, and advanced to the second part of duodenum. The upper GI endoscopy was accomplished without difficulty. The patient tolerated the procedure well. Scope In: 3:34:48 PM Scope Out: 3:39:48 PM Total Procedure Duration Time 0 hours 5 minutes 0 seconds Findings: The esophagus and gastroesophageal junction were examined with white light from a forward view and retroflexed position. There were esophageal mucosal changes secondary to established short-segment Carrasco's disease. These changes involved the mucosa at the upper extent of the gastric folds (42 cm from the incisors) extending to the Z-line (38 cm from the incisors). [place]-colored mucosa was present. The maximum longitudinal extent of these esophageal mucosal changes was 2 cm in length. Mucosa was biopsied with a cold forceps for histology in a targeted manner at intervals of 1 cm in the lower third of the esophagus. One specimen bottle was sent to pathology. Verification of patient identification for the specimen was done. Estimated blood loss was minimal. Diffuse moderately erythematous mucosa without bleeding was found in the gastric antrum. Biopsies were taken with a cold forceps for histology. Verification of patient identification for the specimen was done. Estimated blood loss was minimal. The duodenal bulb was normal. Impression: - Esophageal mucosal changes secondary to established short-segment Carrasco's disease. Biopsied. - Erythematous mucosa in the antrum. Biopsied. - Normal duodenal bulb. Recommendation: - Discharge patient to home. - Resume previous diet. - Continue present medications. - Await pathology results. Procedure Code(s): --- Professional --- 41229, Esophagogastroduodenoscopy, flexible, transoral; with biopsy, single or multiple CPT copyright 2021 [employer]. All rights reserved. The codes documented in this report are preliminary and upon histotechnologist review may be revised to meet current compliance requirements. Arsh Hurley DO 04/30/2023 3:49:48 PM This report has been signed electronically. Number of Addenda: 0 Note Initiated On: 04/30/2023 3:28 PM
== END 2023-04-30 16:42 | disposition home or self-care (01) ==
LOC: EN 12:16 → AC 12:18
PROVIDERS: PCP Internal Medicine; Referring Provider Internal Medicine; Visit Provider Internal Medicine Gastroenterology
PROC: 0DJ08ZZ Inspection of Upper Intestinal Tract, Via Natural or Artificial Opening Endoscopic (ICD-10-PCS; CPT 43235; principal; 2023-04-30 13:25)
DX: K22.70 Barrett's esophagus without dysplasia (principal); K29.70 Gastritis, unspecified, without bleeding; R63.4 Abnormal weight loss; K31.89 Other diseases of stomach and duodenum; K21.00 Gastro-esophageal reflux disease with esophagitis, without bleeding; F41.9 Anxiety disorder, unspecified; F32.A Depression, unspecified; I10 Essential (primary) hypertension; R41.3 Other amnesia; E78.00 Pure hypercholesterolemia, unspecified; Z79.899 Other long term (current) drug therapy
CPT/HCPCS: 43239; 88305; 88313; 88342; J7120; J2405

== ENCOUNTER → 2023-06-18 | Outpatient (CLI) | payer MEDICARE, BC, SELFPAY ==
[2023-06-18 18:11] LABS: Hemoglobin A1c 5.1 % (3.8-5.6)
== END | disposition home or self-care (01) ==
LOC: MTLAB 16:04
PROVIDERS: PCP Internal Medicine; Referring Provider Psychiatry & Neurology Neurology; Visit Provider Psychiatry & Neurology Neurology
DX: R73.9 Hyperglycemia, unspecified (principal)
CPT/HCPCS: 36415; 83036

== ENCOUNTER → 2023-07-26 | Outpatient (CLI) | payer MEDICARE, BC, SELFPAY ==
--- NOTE | 2023-07-26 09:59 | ECHOD_ITS ---
Reason For Study: MURMUR Procedure This was a 2D Doppler, Color Flow transthoracic echocardiogram. Exam performed in department. Left Ventricle Normal LV size. Left ventricular systolic function is normal. The estimated ejection fraction is 65 %. Stage 1 diastolic dysfunction. No regional wall motion abnormalities noted. Right Ventricle Normal RV size. Normal systolic function. Atria Normal left atrium. Normal right atrium. Mitral Valve Normal mitral valve. Mild (1+) eccentric mitral valve insufficiency. Tricuspid Valve Normal tricuspid valve. Aortic Valve Trisinus/trileaflet aortic valve. Mild focal aortic valve calcification. Pulmonic Valve Normal pulmonic valve. Great Vessels Normal aortic root. The pulmonary artery is normal size. Normal inferior vena cava. Pericardium/Pleural No pericardial effusion. MMode/2D Measurements & Calculations LVIDd: 3.2 cm IVSd: 1.1 cm Ao root diam: 2.1 cm LVIDs: 2.1 cm LVPWd: 0.97 cm FS: 34.1 % LAV(MOD-sp4): 18.5 ml LVAd ap4: 17.4 cm2 SV(MOD-sp4): 31.5 ml LVLd ap4: 5.7 cm EDV(MOD-sp4): 44.1 ml EDV(sp4-el): 44.8 ml LVAs ap4: 8.2 cm2 LVLs ap4: 4.7 cm ESV(MOD-sp4): 12.6 ml ESV(sp4-el): 12.1 ml EF(MOD-sp4): 71.5 % EF(sp4-el): 73.0 % SV(sp4-el): 32.7 ml LA A4 area: 8.6 cm2 LA dimension(2D): 3.1 cm RA A4 area: 11.6 cm2 Time Measurements MV dec time: 0.17 sec Doppler Measurements & Calculations MV E max lam: 73.6 cm/sec Lat Peak E' Lam: 8.2 cm/sec Med Peak E' Lam: 8.9 cm/sec MV A max lam: 75.0 cm/sec E/E' lat: 9.0 E/E' med: 8.2 MV E/A: 0.98 MV V2 max: 79.1 cm/sec Ao V2 max: 182.1 cm/sec MV max P.5 mmHg MV dec slope: 465.4 cm/sec2 Ao max P.5 mmHg MV V2 mean: 47.0 cm/sec Ao V2 mean: 129.9 cm/sec MV mean P.1 mmHg Ao mean P.7 mmHg MV V2 VTI: 17.7 cm Ao V2 VTI: 40.2 cm PA V2 max: 163.7 cm/sec PA V2 mean: 99.6 cm/sec ECHO/Echo Complete Interpretation Summary Normal LV size. Left ventricular systolic function is normal. The estimated ejection fraction is 65 %. Normal tricuspid valve. Mild (1+) eccentric mitral valve insufficiency. Stage 1 diastolic dysfunction. Ordering Physician: Nestor Montemayor Referring Physician: Nestor Montemayor Performed By: Annette Lino RCS
== END | disposition home or self-care (01) ==
LOC: CVS 09:56
PROVIDERS: PCP Internal Medicine; Referring Provider Psychiatry & Neurology Neurology; Visit Provider Psychiatry & Neurology Neurology
DX: R01.1 Cardiac murmur, unspecified (principal)
CPT/HCPCS: 93306

== ENCOUNTER → 2023-09-19 | Outpatient (CLI) | payer MEDICARE, BC, SELFPAY ==
[2023-09-19 17:00] LABS: Anion Gap 3 (5-15); BUN 16 mg/dL (7-18); BUN/Creat Ratio 18.4 RATIO (10-20); Calcium,Total 8.9 mg/dL (8.5-10.1); Chloride 104 mmol/L (98-107); Creatinine, Serum 0.87 mg/dL (0.55-1.02); EST Glomerular Filtration Rate 69 mL/min (>60); Est Glom Filt Rate - Afr Amer 83 mL/min (>60); Glucose 100 mg/dL (74-106); Potassium 4.5 mmol/L (3.5-5.1); Sodium Level 138 mmol/L (136-145)
[2023-09-19 17:03] LABS: Vitamin D,25 Hydroxy 41.3 ng/mL
== END | disposition home or self-care (01) ==
LOC: BIMLAB 15:59
PROVIDERS: PCP Internal Medicine; Referring Provider Internal Medicine; Visit Provider Internal Medicine
DX: M81.0 Age-related osteoporosis without current pathological fracture (principal); I10 Essential (primary) hypertension
CPT/HCPCS: 36415; 80048; 82306

== ENCOUNTER → 2024-01-16 | Outpatient (CLI) | payer MEDICARE, BC, SELFPAY ==
[2024-01-16 16:12] LABS: Absolute Lymphocyte Count 2.18 X10^3/uL (0.83-4.51); Absolute Neutrophil Count 5.9 X10^3/uL (2.0-7.7); Basophil# 0.06 X10^3/uL; Basophil% 0.7 % (0-1); Eosinophil# 0.31 X10^3/uL; Eosinophils% 3.4 % (0-5); Hemoglobin 12.6 g/dL (12.0-15.0); Lymphocyte # 2.18 X10^3/ul (0.83-4.51); Lymphocyte % 24.2 % (19-41); Mean Corp Hgb Conc 34.1 g/dL (32-36); Mean Corpuscular Hgb 32.2 pg (27.0-32.0); Mean Corpuscular Volume 94.6 fL (81-99); Mean Platelet Vol. 9.4 fl (6.2-12.0); Monocyte# 0.54 X10^3/uL; NRBC Flagged by Analyzer 0 % (0-5); Neutrophil # 5.88 X10^3/uL (2.7-7.7); Neutrophil % 65.5 % (47-70); Platelet Count 242 K/mm3 (150-450); RBC Distribution Width CV 12.1 % (11.6-14.6); RBC Distribution Width SD 41.7 fl (35.1-43.9); Red Blood Count 3.91 M/mm3 (4.2-5.4)
[2024-01-16 16:52] LABS: ALB/GLOB Ratio 0.9 RATIO (0.9-2.4); AST(SGOT) 17 U/L (15-37); Alanine Aminotransfer ALT/SGPT 22 U/L (13-56); Albumin, Serum 3.2 g/dL (3.2-5.0); Alkaline Phosphatase 50 U/L (45-117); Anion Gap 4 (5-15); BUN 18 mg/dL (7-18); BUN/Creat Ratio 20.6 RATIO (10-20); Calcium,Total 9.1 mg/dL (8.5-10.1); Chloride 104 mmol/L (98-107); Cholesterol 173 mg/dL (200); Creatinine, Serum 0.87 mg/dL (0.55-1.02); EST Glomerular Filtration Rate 69 mL/min (>60); Est Glom Filt Rate - Afr Amer 83 mL/min (>60); Globulin 3.6 g/dL (2.2-4.2); Glucose 94 mg/dL (74-106); High Density Lipoprotein 92 mg/dL; Potassium 4.3 mmol/L (3.5-5.1); Protein, Total 6.8 g/dL (6.4-8.2); Sodium Level 139 mmol/L (136-145); Triglycerides 103 mg/dL; Very Low Density Lipoprotein 21 mg/dL (5-40)
== END | disposition home or self-care (01) ==
LOC: BIMLAB 15:00
PROVIDERS: PCP Internal Medicine; Referring Provider Internal Medicine; Visit Provider Internal Medicine
DX: E78.2 Mixed hyperlipidemia (principal)
CPT/HCPCS: 36415; 80053; 80061; 85025

== ENCOUNTER → 2024-03-09 | Outpatient (CLI) | payer MEDICARE, BC, SELFPAY ==
--- NOTE | 2024-03-09 13:24 | BI_ITS ---
MAMMOGRAPHY - BILATERAL SCREENING REASON FOR EXAM: Female, 69 years old. Routine annual screening examination. PERTINENT HISTORY: Non-contributory. TECHNIQUE: Digital bilateral breast shaw (3D mammographic acquisition) in the CC and MLO projections. 2-D mediolateral oblique (MLO) and craniocaudad (CC) views of both breasts were obtained. CAD: Full Field Digital Mammography with Computer Added Detection was performed. COMPARISON: Comparison is made with prior study dated March 07, 2023 and February 02, 2021. FINDINGS: Breast Composition: The breasts are extremely dense, which lowers the sensitivity of mammography. There are no dominant masses or suspicious calcifications. No other significant abnormalities are identified. There has been no significant change since the prior study. BI/SCRN MAMM (CAD)W/SHAW BILAT IMPRESSION: Stable bilateral screening mammogram. Yearly follow-up mammogram recommended. (A) ASSESSMENT CATEGORY: BIRADS Category 1: Negative. A letter regarding these results will be sent to the patient by the facility within 30 days. Approximately 10% of breast cancers are not detected by mammography. A normal mammogram should not delay biopsy of a clinically suspicious abnormality. [id number] Electronically Signed: Carson Manley MD at 14:05 EST ,
== END | disposition home or self-care (01) ==
LOC: OPBI 13:23
PROVIDERS: PCP Internal Medicine; Referring Provider Internal Medicine; Visit Provider Internal Medicine
DX: Z12.31 Encounter for screening mammogram for malignant neoplasm of breast (principal)
CPT/HCPCS: 77063; 77067

== ENCOUNTER → 2024-03-23 | Outpatient (CLI) | payer MEDICARE, BC, SELFPAY ==
--- NOTE | 2024-03-23 08:58 | CDU_ITS ---
Reason For Study Reason For Study: Bilateral carotid bruit Rt. Velocities/BP Lt. Velocities/BP Prox CCA 96.6/13.5 cm/sec. Prox CCA 96.6/12.6 cm/sec. Mid CCA 78.7/15.4. cm/sec. Mid CCA 84.4/14.5 cm/sec. Dist CCA 66.4/13.5 cm/sec. Dist CCA 70.2/11.6 cm/sec. Prox ICA 87.2/27.7 cm/sec. Prox ICA 57.5/11.3 cm/sec. Mid ICA 94.9/33.3 cm/sec. Mid ICA 93.8/22.3 cm/sec. Dist ICA 75.1/24.5 cm/sec. Dist ICA 83.9/14.6 cm/sec. Rt. ICA/CCA = 1.21. Lt. ICA/CCA = 1.17. Prox ECA 73/7.8 cm/sec. Prox ECA 113.3/7.7 cm/sec. Rt. Vert. 61.7/12.6 cm/sec. Lt. Vert. 45.4/10.2 cm/sec. Right Extracranial There is homogeneous, smooth atherosclerotic plaque noted in the right common carotid artery. There is intimal thickening but no significant atherosclerotic plaque noted in the right internal carotid artery. There is intimal thickening but no significant atherosclerotic plaque noted in the right external carotid artery. Antegrade flow is noted in the right vertebral artery. Left Extracranial There is homogeneous, smooth atherosclerotic plaque noted in the left common carotid artery. There is heterogeneous, irregular atherosclerotic plaque noted in the left internal carotid artery. There is homogeneous, smooth atherosclerotic plaque noted in the left external carotid artery. Antegrade flow is noted in the left vertebral artery. Procedure This is a Carotid Duplex examination using B-mode, color flow and specral Doppler. Carotid Duplex [id number]. Exam performed in department. VL/Carotid Duplex Ultrasound Interpretation Summary Normal right extracranial internal carotid. Mild (<50%) stenosis left extracranial internal carotid. Patent and antegrade vertebrals bilaterally. Ordering Physician: Nestor Montemayor Referring Physician: Khurram Palmer Performed By: April Still RVT
== END | disposition home or self-care (01) ==
LOC: CVS 08:55
PROVIDERS: PCP Internal Medicine; Referring Provider Psychiatry & Neurology Neurology; Visit Provider Psychiatry & Neurology Neurology
DX: R09.89 Other specified symptoms and signs involving the circulatory and respiratory systems (principal)
CPT/HCPCS: 93880

== ENCOUNTER 2024-05-22 19:56 | Outpatient (CLI) | payer MEDICARE, BC, SELFPAY | END 2024-05-22 23:59 | disposition home or self-care (01) | LOC: SL 19:56 | PROVIDERS: PCP Internal Medicine; Referring Provider Internal Medicine; Visit Provider Internal Medicine | DX: G47.33 Obstructive sleep apnea (adult) (pediatric) (principal) | CPT/HCPCS: 95811 ==

== ENCOUNTER → 2024-07-31 | Outpatient (CLI) | payer MEDICARE, BC, SELFPAY ==
--- NOTE | 2024-07-31 10:29 | RAD_ITS ---
EXAM: XR Chest, 2 Views CLINICAL INDICATION: COUGH TECHNIQUE: Frontal and lateral views of the chest. COMPARISON: No relevant prior studies available. FINDINGS: LUNGS AND PLEURAL SPACES: Unremarkable. No consolidation. No pneumothorax. HEART: Unremarkable. No cardiomegaly. MEDIASTINUM: Unremarkable. Normal mediastinal contour. BONES/JOINTS: Unremarkable. No acute fracture. RAD/Chest PA and Lateral IMPRESSION: No acute cardiopulmonary process. Reading Location: [id number]
== END | disposition home or self-care (01) ==
LOC: RAD 10:24
PROVIDERS: PCP Internal Medicine; Referring Provider Physician Assistant; Visit Provider Physician Assistant
DX: R05.9 Cough, unspecified (principal)
CPT/HCPCS: 71046

== ENCOUNTER → 2024-11-19 | Outpatient (CLI) | payer MEDICARE, BC, SELFPAY ==
--- NOTE | 2024-11-19 15:50 | RAD_ITS ---
PROCEDURE: KNEE 4 OR MORE VIEWS 11/19/2024 REASON FOR EXAM: RIGHT KNEE PAIN TECHNIQUE: Procedure Code: RADKN Modality: DX Procedure: KNEE 4 OR MORE VIEWS Laterality: Right COMPARISON: None. FINDINGS: Bones: No acute bony abnormalities. Joints: Multi compartmental joint space narrowing with sclerosis and marginal osteophytes. Effusion: No effusion. Soft tissues: No soft tissue abnormalities. RAD/Knee 4 or More Views IMPRESSION: No acute osseous abnormalities. Reading Location: [id number]
== END | disposition home or self-care (01) ==
LOC: RAD 15:48
PROVIDERS: PCP Internal Medicine; Referring Provider Internal Medicine; Visit Provider Internal Medicine
DX: M25.561 Pain in right knee (principal)
CPT/HCPCS: 73564